=== PATIENT | male | born 1955 | race Caucasian/White ===

== ENCOUNTER 2017-02-10 23:52 | Emergency (ER) | payer OTHER ==
[2017-02-11 01:18] VITALS: BP 141/83; PULSE 82; TEMP 97.9; BMI 31.3
--- NOTE | 2017-02-11 02:37 | PDOC ---
History of Present Illness - General Chief Complaint: Cold Symptoms Stated Complaint: CONGESTION Time Seen by Provider: 02/11/17 00:58 - History of Present Illness Initial Comments: 02/11/17 02:29 CHIEF COMPLAINT: URI symptoms HISTORY OF PRESENT ILLNESS: 61 yo M with hx of IDDM, HTN, and HLD presents to ED with cough and sinus headache x 2 days. Patient states he has had a runny nose, sneezing, and cough x 2 days and today he has a headache PCP is Kevin Elizabeth No recent travel or sick contacts. PAST MEDICAL HISTORY: Denies past medical history FAMILY HISTORY: Denies SOCIAL HISTORY:Denies tobacco, alcohol, illicit drug use. SURGICAL HISTORY: Denies ALLERGIES: No known drug allergies REVIEW OF SYSTEMS General/Constitutional: Denies fever or chills. Denies weakness, weight change. HEENT: Denies change in vision. Denies ear pain or discharge. Denies sore throat. Cardiovascular: Denies chest pain or shortness of breath. Respiratory: Denies cough, wheezing, or hemoptysis. Gastrointestinal: Denies nausea, vomiting, diarrhea or constipation. Denies rectal bleeding. Genitourinary: Denies dysuria, frequency, or change in urination. Musculoskeletal: Denies joint or muscle swelling or pain. Denies neck or back pain. Skin and breasts: Denies rash or easy bruising. Neurologic: Denies headache, vertigo, loss of consciousness, or loss of sensation. PHYSICAL EXAM General Appearance: Well-appearing, appropriately dressed. No apparent distress. HEENT: Dry cough, swollen turbinates. EOMI, PERRLA, normal ENT inspection, normal voice, TMs normal, pharynx normal. No conjunctival pallor. No photophobia, scleral icterus. Neck: Supple. Trachea midline. No tenderness, rigidity, carotid bruit, stridor , lymphadenopathy, or thyromegaly. Respiratory/Chest: Lungs clear, no wheezing. CTAB. No shortness of breath, chest tenderness, respiratory distress, accessory muscle use. No crackles, rales , rhonchi, stridor, wheezing, dullness Cardiovascular: RRR. S1, S2. No JVD, murmur, bradycardia, tachycardia. Vascular Pulses: Dorsalis-Pedis (R): 2+, Dorsalis-Pedis (L): 2+ Gastrointestinal/Abdominal: Normal bowel sounds. Abdomen soft, non-distended. No tenderness or rebound tenderness. No organomegaly, pulsatile mass, guarding , hernia, hepatomegaly, splenomegaly. Lymphatic: No adenopathy, tenderness. Musculoskeletal/Extremities: Normal inspection. FROM of all extremities, normal capillary refill. Pelvis Stable. No CVA tenderness. No tenderness to extremities, pedal edema, swelling, erythema or deformity. Integumentary: Appropriate color, dry, warm. No cyanosis, erythema, jaundice or rash Neurologic: director software quality assurance II-XII intact. Fully oriented, alert. Appropriate mood/affect. Motor strength 5/5. No appreciable EOM palsy, facial droop or sensory deficit. Past History - Past Medical History Allergies/Adverse Reactions: Allergies Allergy/AdvReac Type Severity Reaction Status Date / Time No Known Drug Allergies Allergy Verified 02/11/17 01:18 Home Medications: Ambulatory Orders Azithromycin [Zithromax 250mg Tablets -] 250 mg PO ASDIR #6 tablet 02/11/17 Dextromethorphan HBr [Robitussin] 15 mg PO Q6H #28 capsule 02/11/17 Guaifenesin/Codeine Phosphate [Cheratussin AC Syrup] 15 ml PO HS PRN #118 liquid MDD 15ml 02/11/17 Insulin (Novolog) [Novolog Flexpen] 0 units SQ ACHS 02/11/17 Diabetes: Yes HTN: Yes - Psycho/Social/Smoking Cessation Hx Suicidal Ideation: No Smoking History: Never smoked Have you smoked in the past 12 months: Yes Number of Cigarettes Smoked Daily: 10 If you are a former smoker, when did you quit?: 3 days Information on smoking cessation initiated: No Hx Alcohol Use: No Drug/Substance Use Hx: No *Physical Exam - Vital Signs Last Vital Signs Temp Pulse Resp BP Pulse Ox 97.9 F 82 18 141/83 96 02/11/17 01:16 02/11/17 01:16 02/11/17 01:16 02/11/17 01:16 02/11/17 01:16 Medical Decision Making - Medical Decision Making 02/11/17 02:32 61 yo M with hx of IDDM, HTN, and HLD presents to ED with cough and sinus headache x 2 days. Clinical presentaiton consistent with viral bronchitis. *DC/Admit/Observation/Transfer Diagnosis at time of Disposition: Bronchitis - Discharge Dispostion Disposition: HOME Condition at time of disposition: Stable Admit: No - Prescriptions Prescriptions: Guaifenesin/Codeine Phosphate [Cheratussin AC Syrup] 15 ml PO HS PRN #118 liquid MDD 15ml PRN Reason: Cough Dextromethorphan HBr [Robitussin] 15 mg PO Q6H #28 capsule Azithromycin [Zithromax 250mg Tablets -] 250 mg PO ASDIR #6 tablet - Referrals Referrals: Kevin Elizabeth MD [Primary Care Provider] - - Patient Instructions Printed Discharge Instructions: DI for Acute Bronchitis Additional Instructions: Please take medications as prescribed. Follow up with Dr. Elizabeth in 5 days if symptoms do not improve. If you experience any fever, nausea, vomiting, diarrhea, shortness of breath, chest pain, or any new or worsening symptoms, please return to the ER.
== END 2017-02-11 02:50 | disposition home or self-care (01) ==
LOC: JERFT 23:52
DX: J40 Bronchitis, not specified as acute or chronic (principal); I10 Essential (primary) hypertension; E78.00 Pure hypercholesterolemia, unspecified; E11.9 Type 2 diabetes mellitus without complications; Z79.4 Long term (current) use of insulin
CPT/HCPCS: 99282-25

== ENCOUNTER 2018-09-04 12:48 | Emergency (ER) | payer OTHER ==
--- NOTE | 2018-09-04 13:03 | PDOC ---
History of Present Illness - General Chief Complaint: Weakness Stated Complaint: WEAK AND DIZZY Time Seen by Provider: 09/04/18 13:03 - History of Present Illness Initial Comments: 09/04/18 14:39 Chief complaint: Dizziness History of present illness: Patient awoke this morning with dizziness he described as a "spinning sensation", worse with head movement and change of position. He has had a recent sinus infection with URI symptoms. He has had short periods of vertigo in the past with similar symptoms. Review of systems: No fever/chills, headache, sore throat, cough, chest pain, shortness of breath, abdominal pain, nausea, vomiting, diarrhea, visual or focal neurologic symptoms, unsteadiness of gait. Past medical history: Insulin-dependent diabetes, elevated cholesterol, high blood pressure. On insulin and Procardia. Sugars and blood pressure have been well-controlled. Social history: One half pack-a-day smoker, no alcohol for 2 years, no drugs, active and without disability Family history: Reviewed and noncontributory Physical exam: Alert and oriented well-developed well-nourished no acute distress cheerful and cooperative. No vertigo at rest, but symptoms provoked by head movement and change of positions. No unsteadiness of gait. PERRLA 4 mm, fundi benign with sharp disc margins and good central venous pulsations ENT clear except for mild nasal congestion, no discharge Neck supple without bruit mass or nodes Chest clear with full breath sounds throughout bilaterally CV S1 and S2 normal without murmur rub or gallop pulses full and symmetric no JVD or edema no bruits Abdomen soft nontender without mass or organomegaly Neurological C2 to 12 intact. Fundi benign. No focal sensory or motor deficits. Strength full and symmetric. Cerebellum intact. Gait stable and unimpaired Impression: Vertigo, acute labyrinthitis, URI Plan: Symptomatic treatment with meclizine, observe, and follow-up. Past History - Past Medical History Allergies/Adverse Reactions: Allergies Allergy/AdvReac Type Severity Reaction Status Date / Time No Known Drug Allergies Allergy Mild Verified 09/04/18 12:50 Home Medications: Ambulatory Orders Insulin (Novolog) [Novolog Flexpen -] 0 units SQ ACHS 02/11/17 Meclizine HCl 25 mg PO TID PRN #15 tablet 09/04/18 Diabetes: Yes HTN: Yes - Suicide/Smoking/Psychosocial Hx Smoking History: Never smoked Have you smoked in the past 12 months: Yes Number of Cigarettes Smoked Daily: 10 If you are a former smoker, when did you quit?: 3 days Hx Alcohol Use: No Drug/Substance Use Hx: No Substance Use Type: None Medical Decision Making - Medical Decision Making 09/04/18 14:43 Patient much improved after 1 dose of meclizine. Symptoms have completely resolved. He has no further vertigo with head movement or changing positions, and is fully ambulatory with no gait disturbance. He is anxious to go home. He is instructed to continue medication for 2-3 days. If symptoms worsen return to the emergency room, otherwise follow-up with ENT specialist. *DC/Admit/Observation/Transfer Diagnosis at time of Disposition: Vertigo - Discharge Dispostion Disposition: HOME Condition at time of disposition: Improved Decision to Admit order: No - Prescriptions Prescriptions: Meclizine HCl 25 mg PO TID PRN #15 tablet PRN Reason: Vertigo - Referrals Referrals: Ludin Robbins MD [Staff Physician] - - Patient Instructions Printed Discharge Instructions: DI for Vertigo Additional Instructions: Rest and medication as directed Return to ER if symptoms persist or other symptoms develop. Otherwise follow-up with primary physician or ENT specialist as directed - Post Discharge Activity
[2018-09-04] MEDS ORDERED: MECLIZINE HCL 25 MG TABLET (FP) PO ONE (13:10)
[2018-09-04] MEDS ORDERED: MECLIZINE HCL 25 MG TABLET (FP) ONE (13:12)
[2018-09-04 13:15] VITALS: BP 146/78; PULSE 77; TEMP 98.4; BMI 31.3
--- NOTE | 2018-09-05 10:55 | EKG ---
Test Reason : Blood Pressure : / mmHG Vent. Rate : 068 BPM Atrial Rate : 068 BPM P-R Int : 148 ms QRS Dur : 082 ms QT Int : 392 ms P-R-T Axes : 071 029 050 degrees QTc Int : 416 ms NORMAL SINUS RHYTHM NORMAL ECG WHEN COMPARED WITH ECG OF 27-DEC-2013 23:15, NO SIGNIFICANT CHANGE WAS FOUND Confirmed by HOLLIS REVELES MD ([id number]) on 09/05/2018 10:54:51 AM Referred By: MEGHANA GRUBER Confirmed By:HOLLIS REVELES MD
== END 2018-09-04 13:34 | disposition home or self-care (01) ==
LOC: FER 12:48
DX: R42 Dizziness and giddiness (principal); I10 Essential (primary) hypertension; E11.9 Type 2 diabetes mellitus without complications
CPT/HCPCS: 93005; 99282-25

== ENCOUNTER 2019-12-27 13:58 | Inpatient (IN) | payer OTHER ==
[2019-12-27] MEDS ORDERED: ASPIRIN 325 MG TABLET PO ONE (14:05)
[2019-12-27] MEDS ORDERED: ASPIRIN 325 MG ENTERIC COATED TABLET (FP) ONE (14:27)
[2019-12-27 14:35] LABS: BASO % 0.2 % (0-2.0); HEMATOCRIT 48.1 % (35.4-49); HEMOGLOBIN 15.5 GM/dL (11.7-16.9); LYMPH % 9.2 % (8-40); MCH 32.2 pg (25.7-33.7); MCHC 32.4 g/dl (32.0-35.9); MEAN CELL VOLUME 99.5 fl (80-96); MEAN PLT VOLUME 10.6 fl (7.5-11.1); MONO % 5.5 % (3.8-10.2); NEUT % 85.1 % (42.8-82.8); PLATELET COUNT 165 K/MM3 (134-434); RBC 4.83 M/mm3 (4.00-5.60); WHITE BLOOD COUNT 11.9 K/mm3 (4.0-10.0)
[2019-12-27 14:41] LABS: INR 0.97 (0.83-1.09); PROTHROMBIN TIME (PATIENT) 11.5 SEC (9.7-13.0)
[2019-12-27 14:44] LABS: ACTIVATED PTT 29.6 SECONDS (25.2-36.5)
--- NOTE | 2019-12-27 14:58 | PDOC ---
History of Present Illness - General Chief Complaint: CVA/TIA Stated Complaint: FALL/POSSIBLE STROKE Time Seen by Provider: 12/27/19 14:15 - History of Present Illness Initial Comments: 12/27/19 14:49 64 M with hx of HTN, DM presented to the ED via EMS with stroke like symptoms. According to him, his last well know timeline was yesterday morning (past 36 hrs timeline) Subsequently, he couldn't walk and had a fall yesterday. In addition, he stated he had problem peeing. Today, he voided himself uncontrollably. His nephrew last saw him was today. He called EMS on him. Patient spoke English and we have a firer low pressure in the room. PMH: HTN, DM PSH: N/a Med: insulin Allergy: none SS: smoke 1 pack q 4 days. GENERAL/CONSTITUTIONAL: No fever or chills. Weakness. HEAD, EYES, EARS, NOSE AND THROAT: No change in vision. No ear pain or discharge. No sore throat. CARDIOVASCULAR: No chest pain or shortness of breath. RESPIRATORY: No cough, wheezing, or hemoptysis. GASTROINTESTINAL: No nausea, vomiting, diarrhea or constipation. GENITOURINARY: Change in urination. MUSCULOSKELETAL: No joint or muscle swelling or pain. No neck or back pain. SKIN: No rash NEUROLOGIC: Headache, loss of consciousness, or change in strength/sensation. ENDOCRINE: No increased thirst. No abnormal weight change. HEMATOLOGIC/LYMPHATIC: No anemia, easy bleeding, or history of blood clots. ALLERGIC/IMMUNOLOGIC: No hives or skin allergy. Past History - Medical History Allergies/Adverse Reactions: Allergies Allergy/AdvReac Type Severity Reaction Status Date / Time No Known Drug Allergies Allergy Mild Verified 12/27/19 14:23 Home Medications: Ambulatory Orders Insulin (Novolog) [Novolog Flexpen -] 0 units SQ ACHS 02/11/17 Meclizine HCl 25 mg PO TID PRN #15 tablet 09/04/18 Asthma: Yes COPD: No Diabetes: Yes HTN: Yes Hypercholesterolemia: Yes - Psycho-Social/Smoking History Smoking History: Never smoked Have you smoked in the past 12 months: Yes Number of Cigarettes Smoked Daily: 10 If you are a former smoker, when did you quit?: 3 days *Physical Exam - Vital Signs Last Vital Signs Temp Pulse Resp BP Pulse Ox 98.7 F 114 H 16 158/91 99 12/27/19 14:00 12/27/19 14:00 12/27/19 14:00 12/27/19 14:00 12/27/19 14:11 - Physical Exam 12/27/19 14:58 GENERAL: Awake, mildly oriented, in mild acute distress HEAD: No signs of trauma EYES: PERRLA, EOMI, sclera anicteric, conjunctiva clear ENT: Auricles normal inspection, hearing grossly normal, nares patent, oropharynx clear without exudates. Moist mucosa NECK: Normal ROM, supple, no lymphadenopathy, JVD, or masses LUNGS: Breath sounds equal, clear to auscultation bilaterally. No wheezes, and no crackles HEART: Regular rate and rhythm, normal S1 and S2, no murmurs, rubs or gallops ABDOMEN: Soft, nontender, normoactive bowel sounds. No guarding, no rebound. No masses EXTREMITIES: Limited range of motion upper and lower extremity, no edema. No clubbing or cyanosis. No cords, erythema, or tenderness. NEUROLOGICAL: Cranial nerves II through XII abnormal. Slurred speech, Unable to ambulate. Left facial droop, able to move forehead. SKIN: Warm, Dry, normal turgor, no rashes or lesions noted. NIH Stroke Scale - Last Known Well Date/Time & Onset Date Last Known Well: 12/26/19 (morning) - Initial Evaluation Level of consciousness: Alert Ask patient the month and their age: Answers both correctly Ask patient to open & close eyes; make fist and let go: Obeys both correctly Best gaze (horizontal eye movement): Partial gaze palsy Visual field testing: No visual field loss Facial paresis (Show teeth/raise eyebrows/close eyes tight): Minor paralysis (flattened nasolabial fold, asymmetry on smiling) Motor Function: Left Arm: Normal Motor Function: Right Arm: Normal (extends arm 90 (or 45) degrees for 10 seconds without drift Motor Function: Left Leg: Drift Motor Function: Right Leg: Drift Limb Ataxia: Present in one limb Sensory(Use pinprick test arms,legs,trunk,face/side to side): Normal Best language (Describe picture, name items, read sentences): No Aphasia Dysarthria (read several words): Normal articulation Extinction and Inattention: No abnormality - Total Score NIH Stroke Scale Score: 5 tPA Exclusion Checklist 0-3hr - Time Elapsed Date last known well: 12/26/19 (morning) Time last known well: 08:00 Elaspsed time: 1 Day(s) and 8 Hour(s) and 37 Minutes - Thrombolytic Therapy Candidate Is the patient eligible for Thrombolytic Therapy?: No - Exclusion Criteria 0-3hr SBP greater than 185 or DBP greater than 110mmHg despite tx: No Recent IC/spinal surgery,head trauma or stroke w/in last 3mo: No Hx of previous IC hemorrhage, IC neoplasm, AVM or aneurysm: No Active internal bleeding: No Blding diathesis(low plt ct, inc PTT,INR>1.7 or use of NOAC): No Symptoms suggest subarachnoid hemorrhage: No CT demonstrates multilobar infarct(>1/3 cerebral hemiphere): No Arterial puncture at noncompressible site in previous 7 days: No Blood glucose concentration less than 50mg/dL (2.7mmol/L): No - Relative Exclusion Criteria 0-3h Care team unable to determine eligibility: No IV/IA thrombolysis/thrombectomy @ another hosp prior arrival: No Life expectancy <1yr/severe co-morbid illness/CORPORATE EXECUTIVE CHEF on admit: No : No Patient/family refused: No Stroke severity too mild (non-disabling): No Recent acute [place] (w/in previous 3 months): No Seizure at onset with postictal residual neuro impairments: No Major surgery or serious trauma w/in previous 14 days: No Recent GI or hemorrhage (w/in previous 21 days): No - Ineligibility reason(s) Reasons No tPA given: Outside of window - delayed arrival, See reason(s) noted above tPA Exclusion checklist 3-4.5h - Time Elapsed Date last known well: 12/26/19 (morning) Time last known well: 08:00 Elaspsed time: 1 Day(s) and 8 Hour(s) and 37 Minutes - Thrombolytic Therapy Candidate Is patient eligible for thrombolytic therapy: No - Exclusion Criteria 3-4.5 hr SBP greater than 185 or DBP greater than 110mmHg despite tx: No Recent IC/spinal surgery,head trauma or stroke<3mos.: No Hx IC hemorrhage, IC neoplasm, AV malformation or aneurysm: No Active internal bleeding: No Blding diathesis(low plt ct, inc PTT,INR>1.7 or use of NOAC): No Symptoms suggest subarachnoid hemorrhage: No CT demonstrates multilobar infarct(>1/3 cerebral hemiphere): No Arterial puncture at noncompressible site in previous 7 days: No Blood glucose concentration less than 50mg/dL (2.7mmol/L): No - Relative Exclusion Criteria 3-4.5 hr Care team unable to determine eligibility: No IV/IA thrombolysis/thrombectomy @ another hosp prior arrival: No Life expectancy <1 yr or severe co-morbid illness: No : No Patient/family refused: No Stroke severity too mild (non-disabling): No Recent acute [place] (w/in previous 3 months): No Seizure at onset with postictal residual neuro impairments: No Major surgery or serious trauma w/in previous 14 days: No Recent GI or hemorrhage (w/in previous 21 days): No - Add'l Relative Exclusion 3-4.5 hr Age > 80: No Hx of both diabetes AND prior ischemic stroke: No Taking an oral anticoagulant regardless of INR: No Severe Stroke (NIHSS >25): No - Ineligibility reason(s) Reasons No tPA given: Outside of window - delayed arrival, See reason(s) noted above Heart Score/ECG Review - History History: Moderately suspicious - Electrocardiogram EKG: Normal - Age Age: 45-65 - Risk Factors Risk Factors Heart Score: Yes Hx Hypertension, Yes Hx Diabetes - Troponin Troponin: </= normal limit - ECG Intrepretation Rhythm: Regular Rhythm Comment:: 12/27/19 15:16 Rate : 97 bpm MS interval 148 ms QRS duration 76 ms QT/qQT 348/441 This EKQ is normal with regular rate and rhythm. Critical Care Time/MDM Note - Medical Decision Making Note: 12/27/19 15:38 64 M with hx of HTN, DM came to the ED via EMS with stroke like symptoms (facial drools, unable to move, facial slur, confusion). His last well know was yesterday morning ( outside of 36 hrs window). He was out of the window for either thromobolytic therapy and thrombectomy. We performed CBC, CMP, lipid panel, CT scan, EKG, UA. His CT scan was negative, no intracranial hemorrhage. His EKG is normal. UA is normal 12/27/19 15:51 Dr. Malkani paged for neuro. He agreed to admit the patient on the stroke floor. Consult was ordered. Hospitalist was contacted. Brain MRI w/o contrast was ordered per Dr. Bhatia. 12/27/19 16:33 Dr. Ronaldo Bernal will take Mr. Lundy on the floor to rule out CVA. 12/27/19 16:41 Patient was evaluated and felt improved. He is stable. Discharge - Discharge Information Problems reviewed: Yes Clinical Impression/Diagnosis: Cerebrovascular accident (CVA) Qualifiers: CVA mechanism: unspecified Qualified Code(s): I63.9 - Cerebral infarction, unspecified Condition: Stable - Admission Yes - Follow up/Referral Referrals: Kevin Elizabeth MD [Primary Care Provider] - - Patient Discharge Instructions - Post Discharge Activity
--- NOTE | 2019-12-27 15:01 | PDOC ---
Documentation entered by Laura Fajardo SCRIBE, acting as scribe for Tg Valentin MD. Tg Valentin MD: This documentation has been prepared by the scribe, Laura Fajardo SCRIBE, under my direction and personally reviewed by me in its entirety. I confirm that the documentation accurately reflects all work, treatment, procedures, and medical decision making performed by me. Attending Attestation - Resident Resident Name: Loc Tate - ED Attending Attestation I have performed the following: I have examined & evaluated the patient, The case was reviewed & discussed with the resident, I agree w/resident's findings & plan, Exceptions are as noted - HPI HPI: Patient is a 64 year old male with a significant past medical history of smoking (1Pack - days), insulin dependent diabetes, and hypertension who presents to the ED with a stroke x36 hours and a fall yesterday. Patient stated that he woke up yesterday morning with his "legs trembling" which inhibited him from walking or having full range of motion as well as lower extremity pain. Patient disclosed that last night he slipped outside of his house because of the rain and could not get himself back up for approximately 20 minutes. Patient said that his symptoms became worse over time and that this morning (around 9:30am) he could not "hold it in" and urinated on himself due to the fact that he could not get himself to walk to the bathroom. Patient stated he has had an ongoing headache. Patient denies chest pain or any other related symptoms. Last known well: 1 day ago. Allergies: NKDA - Physicial Exam PE: GENERAL: Awake, alert, and fully oriented, in no acute distress HEAD: No signs of trauma EYES: PERRLA, EOMI, sclera anicteric, conjunctiva clear ENT: Auricles normal inspection, hearing grossly normal, nares patent, oropharynx clear without exudates. Moist mucosa NECK: Normal ROM, supple, no lymphadenopathy, JVD, or masses LUNGS: Breath sounds equal, clear to auscultation bilaterally. No wheezes, and no crackles HEART: Regular rate and rhythm, normal S1 and S2, no murmurs, rubs or gallops ABDOMEN: Soft, nontender, normoactive bowel sounds. No guarding, no rebound. No masses EXTREMITIES: Normal range of motion, no edema. No clubbing or cyanosis. No cords, erythema, or tenderness NEUROLOGICAL: Cranial nerves II through XII grossly intact. Normal speech. Dec sensation to pinprick diffusely to BUE and BLE. Pt able to move all 4 extremities, however, poor compliance with neuro exam. SKIN: Warm, dry, normal turgor, no rashes or lesions noted. - Medical Decision Making 12/27/19 15:08 Pt presents with shaking legs, weakness diffusely throughout his body. This is not consistent with a specific neurologic distribution, do not suspect a CVA. Out of he window for tPA, as well. NIH Stroke Scale - Last Known Well Date/Time & Onset Date Last Known Well: 12/26/19 - Initial Evaluation Level of consciousness: Alert Ask patient the month and their age: Answers both correctly Ask patient to open & close eyes; make fist and let go: Obeys both correctly Best gaze (horizontal eye movement): Normal Visual field testing: No visual field loss Facial paresis (Show teeth/raise eyebrows/close eyes tight): Normal symmetrical movement Motor Function: Left Arm: Normal Motor Function: Right Arm: Normal (extends arm 90 (or 45) degrees for 10 seconds without drift Motor Function: Left Leg: Normal (extends leg 30 degrees for 5 seconds without drift) Motor Function: Right Leg: Normal (extends leg 30 degrees for 5 seconds without drift) Limb Ataxia: No ataxia Sensory(Use pinprick test arms,legs,trunk,face/side to side): Mild to moderate decrease in sensation Best language (Describe picture, name items, read sentences): No Aphasia Dysarthria (read several words): Mild to moderate slurring of words Extinction and Inattention: No abnormality (Patient with poor cooperation with stroke scale) - Total Score NIH Stroke Scale Score: 2 Discharge - Discharge Information Problems reviewed: Yes Clinical Impression/Diagnosis: Cerebrovascular accident (CVA) Qualifiers: CVA mechanism: unspecified Qualified Code(s): I63.9 - Cerebral infarction, unspecified Condition: Stable - Follow up/Referral - Patient Discharge Instructions - Post Discharge Activity
[2019-12-27 15:10] LABS: ALBUMIN 3.8 g/dl (3.4-5.0); ALK PHOS 62 U/L (45-117); ANION GAP 12 MMOL/L (8-16); BILIRUBIN,TOTAL 0.8 mg/dL (0.2-1); BLOOD UREA NITROGEN 13.2 mg/dL (7-18); CALCIUM 9.5 mg/dL (8.5-10.1); CHLORIDE 103 mmol/L (98-107); CHOLESTEROL 250 mg/dL (50-200); CO2 23 mmol/L (21-32); CREATININE 0.8 mg/dL (0.55-1.3); GLUCOSE,RANDOM 296 mg/dL (74-106); HDL CHOLESTEROL 74 mg/dL (40-60); LDL CHOLESTEROL (ONLY SJRH) 154 mg/dL (5-100); POTASSIUM 4.7 mmol/L (3.5-5.1); SGOT/AST 35 U/L (15-37); SGPT/ALT 23 U/L (13-61); SODIUM 138 mmol/L (136-145); TOT PROT 7.7 g/dl (6.4-8.2); TRIGLYCERIDES 127 mg/dL (0-150)
[2019-12-27 15:25] LABS: URINE APPEARANCE CLEAR; URINE BILIRUBIN NEGATIVE (NEGATIVE); URINE COLOR YELLOW; URINE GLUCOSE (UA) 3+ (NEGATIVE); URINE KETONE 1+ (NEGATIVE); URINE LEUK ESTERASE NEGATIVE (NEGATIVE); URINE NITRITE NEGATIVE (NEGATIVE); URINE PROTEIN NEGATIVE (NEGATIVE); URINE UROBILINOGEN 0.2 mg/dL (0.2-1.0)
[2019-12-27] MEDS ORDERED: ATORVASTATIN CA 80 MG TABLET (FP) ONE (17:10)
[2019-12-27] MEDS: ATORVASTATIN CA 80 MG TABLET (FP) PO SCH ×2 (17:13→22:00)
--- NOTE | 2019-12-27 18:06 | HP ---
<Travis Mckinnon - Last Filed: 12/27/19 20:19> CHIEF COMPLAINT: Extremity Weakness PCP: Dr. 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 Patient endorses that yesterday afternoon he was waiting outside his home for a taxi. While waiting for the taxi, patient began to feel his legs become very weak; patient subsequently went back into his home. Later that night, patient could not get up from his bed to urinate and subsequently urinated on himself. Patient states he has never experienced these symptoms before. Endorses diffuse weakness in both of arms and legs as well as decreased sensation throughout his entire body. Denies facial droop, altered mental status, blurry vision, chest pain, shortness of breath, or syncope. PMH IDDN, HTN Social Hx- Smokes Cigarillos~1 pack Q3 days SurgHx- Denies Allergies- Denies FH- Brother DM. ER course was notable for: (1) CT Head- Negative for acute pathology (2) NIH Stroke Scale 5 points (3) ASA+Atorvastatin administered Recent Travel: Denies HOME MEDICATIONS: Home Medications Medication Instructions Recorded Insulin (Novolog) [Novolog Flexpen 0 units SQ ACHS 02/11/17 -] Meclizine HCl 25 mg PO TID PRN #15 tablet 09/04/18 REVIEW OF SYSTEMS CONSTITUTIONAL: Absent: fever, chills, diaphoresis, generalized weakness, malaise, loss of appetite, weight change HEENT: Absent: rhinorrhea, nasal congestion, throat pain, throat swelling, difficulty swallowing, mouth swelling, ear pain, eye pain, visual changes CARDIOVASCULAR: Absent: chest pain, syncope, palpitations, irregular heart rate, lightheadedness, peripheral edema RESPIRATORY: Absent: cough, shortness of breath, dyspnea with exertion, orthopnea, wheezing, stridor, hemoptysis GASTROINTESTINAL: Absent: abdominal pain, abdominal distension, nausea, vomiting, diarrhea, constipation, melena, hematochezia GENITOURINARY: Absent: dysuria, frequency, urgency, hesitancy, hematuria, flank pain, genital pain MUSCULOSKELETAL: Absent: myalgia, arthralgia, joint swelling, back pain, neck pain SKIN: Absent: rash, itching, pallor HEMATOLOGIC/IMMUNOLOGIC: Absent: easy bleeding, easy bruising, lymphadenopathy, frequent infections ENDOCRINE: Absent: unexplained weight gain, unexplained weight loss, heat intolerance, cold intolerance NEUROLOGIC: PRESENT: focal weakness or paresthesias, unsteady gait PSYCHIATRIC: Absent: anxiety, depression, suicidal or homicidal ideation, hallucinations. PHYSICAL EXAMINATION Vital Signs - 24 hr 12/27/19 12/27/19 12/27/19 14:00 14:11 14:30 Temperature 98.7 F Pulse Rate 114 H Pulse Rate [ 102 H Left Radial] Respiratory 16 18 Rate Blood Pressure 158/91 Blood Pressure 135/71 [Left Arm] O2 Sat by Pulse 95 99 94 L Oximetry (%) 12/27/19 12/27/19 15:00 15:30 Temperature Pulse Rate Pulse Rate [ 96 H 94 H Left Radial] Respiratory 20 18 Rate Blood Pressure Blood Pressure 139/79 149/77 [Left Arm] O2 Sat by Pulse 96 99 Oximetry (%) GENERAL: Alert and Oriented x 3, NAD, pleasant HEAD: Normal with no signs of trauma. EYES: EOMI Sclera Clear. Right pupil nonreactive to light. EARS, NOSE, THROAT: MMM NECK: Supple, No carotid bruits appreciated LUNGS: CTAB HEART: RRR ABDOMEN: Soft, NDNT LOWER EXTREMITIES: Onychomycosis, ++ Babinski bilaterally NEUROLOGICAL: CN 2-12 are intact however sensation decreased throughout. Strength 3/5 RUE, 1/5 LUE. 3/5 RLE, 2/5 LLE. Reflexes 2+ LLE, absent RLE. Finger to nose WNL. Was unable to assess gait due to patient inability. PSYCHIATRIC: Cooperative. Good eye contact. Appropriate mood and affect. SKIN: Warm, dry, normal turgor, no rashes or lesions noted, normal capillary refill. Laboratory Results - last 24 hr 12/27/19 12/27/19 12/27/19 14:05 14:05 14:05 WBC 11.9 H RBC 4.83 Hgb 15.5 Hct 48.1 D MCV 99.5 H MCH 32.2 MCHC 32.4 RDW 12.0 Plt Count 165 MPV 10.6 D Absolute Neuts (auto) 10.1 H Neutrophils % 85.1 H D Lymphocytes % 9.2 D Monocytes % 5.5 Eosinophils % 0.0 D Basophils % 0.2 Nucleated RBC % 0 PT with INR 11.50 INR 0.97 PTT (Actin FS) 29.6 Sodium 138 Potassium 4.7 Chloride 103 Carbon Dioxide 23 Anion Gap 12 BUN 13.2 Creatinine 0.8 Est GFR (CKD-EPI)AfAm 110.96 Est GFR (CKD-EPI)NonAf 95.74 Random Glucose 296 H Calcium 9.5 Total Bilirubin 0.8 AST 35 ALT 23 Alkaline Phosphatase 62 Creatine Kinase 190 Creatine Kinase Index 0.6 CK-MB (CK-2) 1.3 Troponin I < 0.02 Total Protein 7.7 Albumin 3.8 Triglycerides 127 Cholesterol 250 H Total LDL Cholesterol 154 H HDL Cholesterol 74 H Urine Color Urine Appearance Urine pH Ur Specific Burdick Urine Protein Urine Glucose (UA) Urine Ketones Urine Blood Urine Nitrite Urine Bilirubin Urine Urobilinogen Ur Leukocyte Esterase Blood Type Antibody Screen 12/27/19 12/27/19 14:05 14:56 WBC RBC Hgb Hct MCV MCH MCHC RDW Plt Count MPV Absolute Neuts (auto) Neutrophils % Lymphocytes % Monocytes % Eosinophils % Basophils % Nucleated RBC % PT with INR INR PTT (Actin FS) Sodium Potassium Chloride Carbon Dioxide Anion Gap BUN Creatinine Est GFR (CKD-EPI)AfAm Est GFR (CKD-EPI)NonAf Random Glucose Calcium Total Bilirubin AST ALT Alkaline Phosphatase Creatine Kinase Creatine Kinase Index CK-MB (CK-2) Troponin I Total Protein Albumin Triglycerides Cholesterol Total LDL Cholesterol HDL Cholesterol Urine Color Yellow Urine Appearance Clear Urine pH 5.0 Ur Specific Burdick 1.043 H Urine Protein Negative Urine Glucose (UA) 3+ H Urine Ketones 1+ H Urine Blood Negative Urine Nitrite Negative Urine Bilirubin Negative Urine Urobilinogen 0.2 Ur Leukocyte Esterase Negative Blood Type Cancelled Antibody Screen Cancelled ASSESSMENT/PLAN: Patient is a 64 y/o M with a significant past medical history of IDDM and HTN who presented to [facility] due to sudden onset extremity weakness. #Extremity weakness likely 2/2 CVA -Head CT negative -Out of window for tPA -NIH stroke scale 5 -High intensity Statin, ASA daily -MRI w/o Contrast -Neuro Consult -Carotid U/S -Tele monitoring -VS Q4H -Speech/Swallow -Physical therapy #IDDM -Patient endorses being on Insulin. Cannot recall units. -Will need to reconcile medication. [facility]. Pharmacy closed #HTN -Tony need to reconcile medication. #FEN -No Fluids -Monitor Electrolytes -NPO until cleared by speech and swallow #DVT ppx; HepSQTID #Dispo -Tele Visit type - Emergency Visit Emergency Visit: Yes ED Registration Date: 12/27/19 Care time: The patient presented to the Emergency Department on the above date and was hospitalized for further evaluation of their emergent condition. - New Patient This patient is new to me today: Yes Date on this admission: 12/27/19 - Critical Care Critical Care patient: No ATTENDING PHYSICIAN STATEMENT I saw and evaluated the patient. I reviewed the resident's note and discussed the case with the resident. I agree with the resident's findings and plan as documented. SUBJECTIVE: OBJECTIVE: ASSESSMENT AND PLAN: <Ronaldo Gonzales - Last Filed: 12/27/19 20:49> CHIEF COMPLAINT: PCP: HISTORY OF PRESENT ILLNESS: ER course was notable for: (1) (2) (3) Recent Travel: PAST MEDICAL HISTORY: PAST SURGICAL HISTORY: Social History: Smoking: Alcohol: Drugs: Allergies No Known Drug Allergies Allergy (Mild, Verified 12/27/19 14:23) HOME MEDICATIONS: Home Medications Medication Instructions Recorded Insulin (Novolog) [Novolog Flexpen 0 units SQ ACHS 02/11/17 -] Meclizine HCl 25 mg PO TID PRN #15 tablet 09/04/18 REVIEW OF SYSTEMS CONSTITUTIONAL: Absent: fever, chills, diaphoresis, generalized weakness, malaise, loss of appetite, weight change HEENT: Absent: rhinorrhea, nasal congestion, throat pain, throat swelling, difficulty swallowing, mouth swelling, ear pain, eye pain, visual changes CARDIOVASCULAR: Absent: chest pain, syncope, palpitations, irregular heart rate, lightheadedness, peripheral edema RESPIRATORY: Absent: cough, shortness of breath, dyspnea with exertion, orthopnea, wheezing, stridor, hemoptysis GASTROINTESTINAL: Absent: abdominal pain, abdominal distension, nausea, vomiting, diarrhea, constipation, melena, hematochezia GENITOURINARY: Absent: dysuria, frequency, urgency, hesitancy, hematuria, flank pain, genital pain MUSCULOSKELETAL: Absent: myalgia, arthralgia, joint swelling, back pain, neck pain SKIN: Absent: rash, itching, pallor HEMATOLOGIC/IMMUNOLOGIC: Absent: easy bleeding, easy bruising, lymphadenopathy, frequent infections ENDOCRINE: Absent: unexplained weight gain, unexplained weight loss, heat intolerance, cold intolerance NEUROLOGIC: Absent: headache, focal weakness or paresthesias, dizziness, unsteady gait, seizure, mental status changes, bladder or bowel incontinence PSYCHIATRIC: Absent: anxiety, depression, suicidal or homicidal ideation, hallucinations. PHYSICAL EXAMINATION Vital Signs - 24 hr 12/27/19 12/27/19 12/27/19 14:00 14:11 14:30 Temperature 98.7 F Pulse Rate 114 H Pulse Rate [ 102 H Left Radial] Respiratory 16 18 Rate Blood Pressure 158/91 Blood Pressure 135/71 [Left Arm] O2 Sat by Pulse 95 99 94 L Oximetry (%) 12/27/19 12/27/19 12/27/19 15:00 15:30 18:35 Temperature 98.9 F Pulse Rate Pulse Rate [ 96 H 94 H 74 Left Radial] Respiratory 20 18 18 Rate Blood Pressure Blood Pressure 139/79 149/77 146/89 [Left Arm] O2 Sat by Pulse 96 99 99 Oximetry (%) GENERAL: Awake, alert, and fully oriented, in no acute distress. HEAD: Normal with no signs of trauma. EYES: Pupils equal, round and reactive to light, extraocular movements intact, sclera anicteric, conjunctiva clear. No lid lag. EARS, NOSE, THROAT: Ears normal, nares patent, oropharynx clear without exudates. Moist mucous membranes. NECK: Normal range of motion, supple without lymphadenopathy, JVD, or masses. LUNGS: Breath sounds equal, clear to auscultation bilaterally. No wheezes, and no crackles. No accessory muscle use. HEART: Regular rate and rhythm, normal S1 and S2 without murmur, rub or gallop. ABDOMEN: Soft, nontender, not distended, normoactive bowel sounds, no guarding, no rebound, no masses. No hepatomegaly or splenomegaly. MUSCULOSKELETAL: Normal range of motion at all joints. No bony deformities or tenderness. No CVA tenderness. UPPER EXTREMITIES: 2+ pulses, warm, well-perfused. No cyanosis. No clubbing. No peripheral edema. LOWER EXTREMITIES: 2+ pulses, warm, well-perfused. No calf tenderness. No peripheral edema. NEUROLOGICAL: Cranial nerves II-XII intact. Normal speech. Normal gait. PSYCHIATRIC: Cooperative. Good eye contact. Appropriate mood and affect. SKIN: Warm, dry, normal turgor, no rashes or lesions noted, normal capillary refill. Laboratory Results - last 24 hr 12/27/19 12/27/19 12/27/19 14:05 14:05 14:05 WBC 11.9 H RBC 4.83 Hgb 15.5 Hct 48.1 D MCV 99.5 H MCH 32.2 MCHC 32.4 RDW 12.0 Plt Count 165 MPV 10.6 D Absolute Neuts (auto) 10.1 H Neutrophils % 85.1 H D Lymphocytes % 9.2 D Monocytes % 5.5 Eosinophils % 0.0 D Basophils % 0.2 Nucleated RBC % 0 PT with INR 11.50 INR 0.97 PTT (Actin FS) 29.6 Sodium 138 Potassium 4.7 Chloride 103 Carbon Dioxide 23 Anion Gap 12 BUN 13.2 Creatinine 0.8 Est GFR (CKD-EPI)AfAm 110.96 Est GFR (CKD-EPI)NonAf 95.74 Random Glucose 296 H Calcium 9.5 Total Bilirubin 0.8 AST 35 ALT 23 Alkaline Phosphatase 62 Creatine Kinase 190 Creatine Kinase Index 0.6 CK-MB (CK-2) 1.3 Troponin I < 0.02 Total Protein 7.7 Albumin 3.8 Triglycerides 127 Cholesterol 250 H Total LDL Cholesterol 154 H HDL Cholesterol 74 H Urine Color Urine Appearance Urine pH Ur Specific Burdick Urine Protein Urine Glucose (UA) Urine Ketones Urine Blood Urine Nitrite Urine Bilirubin Urine Urobilinogen Ur Leukocyte Esterase Blood Type Antibody Screen 12/27/19 12/27/19 14:05 14:56 WBC RBC Hgb Hct MCV MCH MCHC RDW Plt Count MPV Absolute Neuts (auto) Neutrophils % Lymphocytes % Monocytes % Eosinophils % Basophils % Nucleated RBC % PT with INR INR PTT (Actin FS) Sodium Potassium Chloride Carbon Dioxide Anion Gap BUN Creatinine Est GFR (CKD-EPI)AfAm Est GFR (CKD-EPI)NonAf Random Glucose Calcium Total Bilirubin AST ALT Alkaline Phosphatase Creatine Kinase Creatine Kinase Index CK-MB (CK-2) Troponin I Total Protein Albumin Triglycerides Cholesterol Total LDL Cholesterol HDL Cholesterol Urine Color Yellow Urine Appearance Clear Urine pH 5.0 Ur Specific Burdick 1.043 H Urine Protein Negative Urine Glucose (UA) 3+ H Urine Ketones 1+ H Urine Blood Negative Urine Nitrite Negative Urine Bilirubin Negative Urine Urobilinogen 0.2 Ur Leukocyte Esterase Negative Blood Type Cancelled Antibody Screen Cancelled ASSESSMENT/PLAN: ATTENDING PHYSICIAN STATEMENT I saw and evaluated the patient. I reviewed the resident's note and discussed the case with the resident. I agree with the resident's findings and plan as documented. Attending attestation: Patient seen and examined at bedside. Patient keeps asking for food to eat. Refusing to cooperate with nurses, staff, or to have testing done because he cant eat despite explaining to him the concern for choking and the fact that he kept coughing wile trying to swallow a medication with a small sip of water. On exam he is AAOx3. RRR on cardiac exam. Lungs CTAB. ABD soft obese non-tender non distended. no edema of lower extremities. on neurological exam his pupils are equally round and reactive to light. EOMI. he has flattening of the right nasolabial fold when compared to left but left side of face is weak. tongue is symmetrical. cant wrinkle forehead. He reports loss of sensation left V2 distribution. weakness of left shoulder shrug. Left upper extremity weaker than right whe compared. possibly upgoing toes bilaterally on babinsky. LLE is weak when compared to right. LLE plantar flexion is weak. Knee jerk is brisk in the LLE and knee jerk is WNL in RLE. 64M with DM and likely undiagnosed HTN presents with CVA. CT head WNL. 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
[2019-12-27] MEDS: INSULIN SLIDING SCALE (NOVOLOG) 1 VIAL SQ SCH (22:01)
[2019-12-27] MEDS: HEPARIN NA (PORCINE) 5,000 UNITS/ML 1ML VIAL SQ SCH (22:10)
[2019-12-28 02:50] VITALS: BMI 29.0
[2019-12-28] MEDS ORDERED: PNEUMOC 13-VAL CONJ-DIP CRM/PF 0.5 ML DISP.SYRIN IM ONE (02:50)
[2019-12-28] MEDS: HEPARIN NA (PORCINE) 5,000 UNITS/ML 1ML VIAL SQ SCH ×3 (06:36→22:09)
[2019-12-28] MEDS: INSULIN SLIDING SCALE (NOVOLOG) 1 VIAL SQ SCH ×4 (06:44→22:10)
[2019-12-28 08:09] LABS: INR 1.01 (0.83-1.09); PROTHROMBIN TIME (PATIENT) 11.9 SEC (9.7-13.0)
[2019-12-28 08:12] LABS: ACTIVATED PTT 32.1 SECONDS (25.2-36.5)
[2019-12-28 08:19] LABS: HEMATOCRIT 45.9 % (35.4-49); HEMOGLOBIN 15.1 GM/dL (11.7-16.9); MCH 32.8 pg (25.7-33.7); MEAN CELL VOLUME 99.4 fl (80-96); MEAN PLT VOLUME 10.9 fl (7.5-11.1); PLATELET COUNT 160 K/MM3 (134-434); RBC 4.61 M/mm3 (4.00-5.60); RDW 11.8 % (11.9-15.9); WHITE BLOOD COUNT 8.8 K/mm3 (4.0-10.0)
[2019-12-28 08:32] LABS: ALBUMIN 3.5 g/dl (3.4-5.0); ALK PHOS 60 U/L (45-117); ANION GAP 12 MMOL/L (8-16); BILIRUBIN,TOTAL 1.1 mg/dL (0.2-1); BLOOD UREA NITROGEN 11.3 mg/dL (7-18); CALCIUM 9.2 mg/dL (8.5-10.1); CHLORIDE 101 mmol/L (98-107); CHOLESTEROL 232 mg/dL (50-200); CO2 25 mmol/L (21-32); CREATININE 0.6 mg/dL (0.55-1.3); GLUCOSE,RANDOM 243 mg/dL (74-106); HDL CHOLESTEROL 65 mg/dL (40-60); LDL CHOLESTEROL (ONLY SJRH) 140 mg/dL (5-100); MAGNESIUM 2.2 mg/dL (1.8-2.4); PHOSPHOROUS 3.2 mg/dL (2.5-4.9); POTASSIUM 3.9 mmol/L (3.5-5.1); SGOT/AST 16 U/L (15-37); SGPT/ALT 20 U/L (13-61); SODIUM 138 mmol/L (136-145); TRIGLYCERIDES 177 mg/dL (0-150)
[2019-12-28] MEDS: ASPIRIN 81 MG CHEWABLE TABLETS PO SCH (09:00)
--- NOTE | 2019-12-28 11:45 | CONSULT ---
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 Patient endorses that yesterday afternoon (day prior to admission) he was waiting outside his home for a taxi. While waiting for the taxi, patient began to feel his legs become very weak; patient subsequently went back into his home. Later that night, patient could not get up from his bed to urinate and subsequently urinated on himself. Patient states he has never experienced these symptoms before. Endorses diffuse weakness in both of arms and legs as well as decreased sensation throughout his entire body. Denies facial droop, altered mental status, blurry vision, chest pain, shortness of breath, or syncope. Head CT comp leted, with no acute pathology. Carotid color flow doppler, echo with doppler ordered, yet to be completed. Total LDL 154, HDL 74, Cholesterol 250mg, triglycerides 127. Pt started on Aspirin 81mg, statin 80mg. Brain MRI completed, results pending. To my reviewed, appears to have deep right sided DWI+ with ADC dropout consistent with acute CVA. Not taking aspirin at home and I discussed with him the importance of taking antiplatelet medication for CVA prevention. Excessively high LDL also concern and therefore Liam therapy is needed. Primary Medical History: IDDN, HTN Social History- Smokes Cigarillos~1 pack Q3 days Surgical History Denies Family History - brother wit DM Recent Travel: Denies Allergies No Known Drug Allergies Allergy (Mild, Verified 12/27/19 14:23) Ambulatory Orders Insulin (Novolog) [Novolog Flexpen -] 0 units SQ ACHS 02/11/17 Meclizine HCl 25 mg PO TID PRN #15 tablet 09/04/18 Active Medications Aspirin (Asa -) 81 mg PO DAILY [facility] Last Admin: 12/28/19 09:00 Dose: Not Given Documented by: Atorvastatin Calcium (Lipitor -) 80 mg PO HS [facility] Last Admin: 12/27/19 22:00 Dose: Not Given Documented by: Heparin Sodium (Porcine) (Heparin -) 5,000 unit SQ TID [facility] Last Admin: 12/28/19 06:36 Dose: 5,000 unit Documented by: Sodium Chloride (Normal Saline -) 1,000 mls @ 75 mls/hr IV ASDIR CHEIKH Insulin Aspart (Novolog Vial Sliding Scale -) 1 vial SQ ACHS CHEIKH; Protocol Last Admin: 12/28/19 06:44 Dose: 6 units Documented by: Pneumococcal 13-Valent Conj Vacc (Prevnar 13 Syringe -) 0.5 ml IM .ONCE ONE Stop: 12/28/19 02:51 REVIEW OF SYSTEMS CONSTITUTIONAL: Absent: fever, chills, diaphoresis, generalized weakness, malaise, loss of appetite, weight change HEENT: Absent: rhinorrhea, nasal congestion, throat pain, throat swelling, difficulty swallowing, mouth swelling, ear pain, eye pain, visual changes CARDIOVASCULAR: Absent: chest pain, syncope, palpitations, irregular heart rate, lightheadedness, peripheral edema RESPIRATORY: Absent: cough, shortness of breath, dyspnea with exertion, orthopnea, wheezing, stridor, hemoptysis GASTROINTESTINAL: Absent: abdominal pain, abdominal distension, nausea, vomiting, diarrhea, constipation, melena, hematochezia GENITOURINARY: Absent: dysuria, frequency, urgency, hesitancy, hematuria, flank pain, genital pain MUSCULOSKELETAL: Absent: myalgia, arthralgia, joint swelling, back pain, neck pain SKIN: Absent: rash, itching, pallor HEMATOLOGIC/IMMUNOLOGIC: Absent: easy bleeding, easy bruising, lymphadenopathy, frequent infections ENDOCRINE: Absent: unexplained weight gain, unexplained weight loss, heat intolerance, cold intolerance NEUROLOGIC: Absent: headache, focal weakness or paresthesias, dizziness, unsteady gait, seizure, mental status changes, bladder or bowel incontinence PSYCHIATRIC: Absent: anxiety, depression, suicidal or homicidal ideation, hallucinations. PHYSICAL EXAMINATION Vital Signs Period Temp Pulse Resp BP Sys/Llamas Pulse Ox Last 24 Hr 98.2 F-98.9 F 74-114 16-20 132-158/71-91 94-99 GENERAL: Awake, alert, and fully oriented, in no acute distress. HEAD: Normal with no signs of trauma. EYES: Pupils equal, round and reactive to light, extraocular movements intact, sclera anicteric, conjunctiva clear. No lid lag. EARS, NOSE, THROAT: Ears normal, nares patent, oropharynx clear without exudates. Moist mucous membranes. NECK: Normal range of motion, supple without lymphadenopathy, JVD, or masses. LUNGS: Breath sounds equal, clear to auscultation bilaterally. No wheezes, and no crackles. No accessory muscle use. HEART: Regular rate and rhythm, normal S1 and S2 without murmur, rub or gallop. ABDOMEN: Soft, nontender, not distended, normoactive bowel sounds, no guarding, no rebound, no masses. No hepatomegaly or splenomegaly. MUSCULOSKELETAL: Normal range of motion at all joints. No bony deformities or tenderness. No CVA tenderness. UPPER EXTREMITIES: 2+ pulses, warm, well-perfused. No cyanosis. No clubbing. No peripheral edema. LOWER EXTREMITIES: 2+ pulses, warm, well-perfused. No calf tenderness. No peripheral edema. NEUROLOGICAL: Cranial nerves II-XII intact. Finger to nose difficulty, moves all extremities equally, sensory intact, not pariticpating in confrontation testing PSYCHIATRIC: Cooperative. Good eye contact. Appropriate mood and affect. SKIN: Warm, dry, normal turgor, no rashes or lesions noted, normal capillary refill. CBCD WBC 8.8 K/mm3 (4.0-10.0) 12/28/19 06:20 RBC 4.61 M/mm3 (4.00-5.60) 12/28/19 06:20 Hgb 15.1 GM/dL (11.7-16.9) 12/28/19 06:20 Hct 45.9 % (35.4-49) 12/28/19 06:20 MCV 99.4 fl (80-96) H 12/28/19 06:20 MCHC 33.0 g/dl (32.0-35.9) 12/28/19 06:20 RDW 11.8 % (11.9-15.9) L 12/28/19 06:20 Plt Count 160 K/MM3 (134-434) 12/28/19 06:20 MPV 10.9 fl (7.5-11.1) 12/28/19 06:20 CMP Sodium 138 mmol/L (136-145) 12/28/19 06:20 Potassium 3.9 mmol/L (3.5-5.1) 12/28/19 06:20 Chloride 101 mmol/L (98-107) 12/28/19 06:20 Carbon Dioxide 25 mmol/L (21-32) 12/28/19 06:20 Anion Gap 12 MMOL/L (8-16) 12/28/19 06:20 BUN 11.3 mg/dL (7-18) 12/28/19 06:20 Creatinine 0.6 mg/dL (0.55-1.3) 12/28/19 06:20 Random Glucose 243 mg/dL (74-106) H 12/28/19 06:20 Calcium 9.2 mg/dL (8.5-10.1) 12/28/19 06:20 Total Bilirubin 1.1 mg/dL (0.2-1) H 12/28/19 06:20 AST 16 U/L (15-37) 12/28/19 06:20 ALT 20 U/L (13-61) 12/28/19 06:20 Alkaline Phosphatase 60 U/L (45-117) 12/28/19 06:20 Total Protein 7.0 g/dl (6.4-8.2) 12/28/19 06:20 Albumin 3.5 g/dl (3.4-5.0) 12/28/19 06:20 CARDIAC ENZYMES Creatine Kinase 190 U/L (26-308) 12/27/19 14:05 Troponin I < 0.02 ng/ml (0.00-0.05) 12/27/19 14:05 ASSESSMENT/PLAN: Patient is a 64 y/o M with a significant past medical history of IDDM and HTN who presented to [facility] due to sudden onset extremity weakness. Patient endorses that yesterday afternoon (day prior to admission) he was waiting outside his home for a taxi. While waiting for the taxi, patient began to feel his legs become very weak; patient subsequently went back into his home. Later that night, patient could not get up from his bed to urinate and subsequently urinated on himself. Patient states he has never experienced these symptoms before. Endorses diffuse weakness in both of arms and legs as well as decreased sensation throughout his entire body. Denies facial droop, altered mental status, blurry vision, chest pain, shortness of breath, or syncope. Head CT completed, with no acute pathology. Brain MRI completed, results pending. Carotid color flow doppler, echo with doppler ordered, yet to be completed. Total LDL 154, HDL 74, Cholesterol 250mg, triglycerides 127. Pt started on Aspirin 81mg, statin 80mg. Brain MRI completed, results pending. To my reviewed, appears to have deep right sided DWI+ with ADC dropout consistent with acute CVA. Not taking aspirin at home and I discussed with him the importance of taking antiplatelet medication for CVA prevention, statin therapy is needed for elevated LDL, goal <70. Carotid doppler, echo recommended. Monitor blood pressure, maintain less than 160/90 for now. Asa compliance discussed and emphasized. Monitor glucose, maintain euglycemic range. PT as tolerated, speech/swallow eval.
--- NOTE | 2019-12-28 12:36 | PN ---
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, Physician - Current Medication List Current Medications: Active Medications Aspirin (Asa -) 81 mg PO DAILY [facility] Last Admin: 12/28/19 09:00 Dose: Not Given Documented by: Atorvastatin Calcium (Lipitor -) 80 mg PO HS [facility] Last Admin: 12/27/19 22:00 Dose: Not Given Documented by: Heparin Sodium (Porcine) (Heparin -) 5,000 unit SQ TID [facility] Last Admin: 12/28/19 06:36 Dose: 5,000 unit Documented by: Sodium Chloride (Normal Saline -) 1,000 mls @ 75 mls/hr IV ASDIR CHEIKH Insulin Aspart (Novolog Vial Sliding Scale -) 1 vial SQ ACHS [facility]; Protocol Last Admin: 12/28/19 06:44 Dose: 6 units Documented by: Pneumococcal 13-Valent Conj Vacc (Prevnar 13 Syringe -) 0.5 ml IM .ONCE ONE Stop: 12/28/19 02:51 - Objective Vital Signs: Vital Signs Temperature 98.6 F 12/28/19 10:25 Pulse Rate 83 12/28/19 10:25 Respiratory Rate 20 12/28/19 10:25 Blood Pressure 140/77 12/28/19 10:25 O2 Sat by Pulse Oximetry (%) 97 12/28/19 10:25 Cardiovascular: Yes: Regular Rate and Rhythm Respiratory: Yes: Regular, CTA Bilaterally Gastrointestinal: Yes: Normal Bowel Sounds, Soft Neurological: Yes: Alert, Oriented, Weakness. No: Confusion, Facial Droop Labs: CBC, BMP 12/28/19 06:20 12/28/19 06:20 INR, PTT INR 1.01 (0.83-1.09) 12/28/19 06:20 Problem List - Problems (1) Cerebrovascular accident (CVA) Assessment/Plan: ct head negative mri results pending asa statin neuro consult Code(s): I63.9 - CEREBRAL INFARCTION, UNSPECIFIED Qualifiers: CVA mechanism: unspecified Qualified Code(s): I63.9 - Cerebral infarction, unspecified (2) Diabetes Assessment/Plan: poorly controlled bgm with ss while npo endo consult Code(s): E11.9 - TYPE 2 DIABETES MELLITUS WITHOUT COMPLICATIONS (3) HLD (hyperlipidemia) Assessment/Plan: continue with statin Code(s): E78.5 - HYPERLIPIDEMIA, UNSPECIFIED
[2019-12-28] MEDS: SODIUM CHLORIDE 1,000 ML IV SCH (12:48)
[2019-12-28] MEDS ORDERED: ACETAMINOPHEN 325 MG TABLET (FP) PO PRN (13:10)
--- NOTE | 2019-12-28 14:05 | EKG ---
Test Reason : Blood Pressure : / mmHG Vent. Rate : 097 BPM Atrial Rate : 097 BPM P-R Int : 148 ms QRS Dur : 076 ms QT Int : 348 ms P-R-T Axes : 052 016 038 degrees QTc Int : 441 ms NORMAL SINUS RHYTHM POSSIBLE LEFT ATRIAL ENLARGEMENT BORDERLINE ECG WHEN COMPARED WITH ECG OF 04-SEP-2018 13:03, NO SIGNIFICANT CHANGE WAS FOUND Confirmed by COLT BAL MD ([id number]) on 12/28/2019 2:05:03 PM Referred By: Confirmed By:COLT BAL MD
--- NOTE | 2019-12-28 15:41 | CON.CARD ---
Consult Consult Specialty:: Cardiology Referred by:: Dr. Zarate Reason for Consultation:: CVA - History of Present Illness Chief Complaint: weakness History of Present Illness: 64 year old man with pmh HTN, DMII, vertigo, admitted with acute onset weakness. states on day prior to admission while standing he felt his legs get suddenly weak. he went back inside and laid down but was unable to get up due to leg weakness. also reports weakness in arms R>L. pt seen and examined today in nad. denies any palpitations, chest pain, or sob. no pnd, orthopnea, or le edema. no lightheadedness, dizziness, syncope, or near syncope. 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 Cardio/Vascular: Yes: HTN Endocrine: Yes: Diabetes Mellitus - Alcohol/Substance Use Hx Alcohol Use: No - Smoking History Smoking history: Current every day smoker Have you smoked in the past 12 months: Yes Aproximately how many cigarettes per day: 10 If you are a former smoker, when did you quit?: 3 days - Social History ADL: Independent History of Recent Travel: No Home Medications - Allergies Allergies/Adverse Reactions: Allergies Allergy/AdvReac Type Severity Reaction Status Date / Time No Known Drug Allergies Allergy Mild Verified 12/27/19 14:23 - Home Medications Home Medications: Ambulatory Orders Insulin (Novolog) [Novolog Flexpen -] 0 units SQ ACHS 02/11/17 Meclizine HCl 25 mg PO TID PRN #15 tablet 09/04/18 Family Medical History Family History: Denies Review of Systems - Review of Systems Constitutional: reports: Weakness. denies: No Symptoms, Chills, Diaphoresis, Fever, Lethargy, Loss of Appetite, Malaise, Night Sweats, Unintentional Wgt. Loss, Other Eyes: denies: No Symptoms, Blind Spots, Blurred Vision, Double Vision, Eye Pain, Floaters, Photophobia, Recent Change in Vision, Other HENT: denies: No Symptoms, Difficult Swallowing, Ear Discharge, Ear Pain, Epistaxis, Gingival Bleeding, Hearing Loss, Mouth Swelling, Nasal Congestion, Ocular Prosthesis, Throat Pain, Toothache, Ringing in Ears, Other Neck: denies: No Symptoms, Decreased ROM, Lumps, Pain on Movement, Stiffness, Swollen Glands, Tenderness, Other Cardiovascular: denies: No Symptoms, Chest Pain, Edema, Palpitations, Shortness of Breath, Other Respiratory: denies: No Symptoms, Cough, Exercise Intolerance, Hemoptysis, Orthopnea, PND, Snoring, SOB, SOB on Exertion, Wheezing, Other Gastrointestinal: reports: No Symptoms Genitourinary: reports: No Symptoms Breasts: reports: No Symptoms Reported Musculoskeletal: reports: No Symptoms Integumentary: reports: No Symptoms Neurological: reports: No Symptoms Endocrine: reports: No Symptoms Hematology/Lymphatic: reports: No Symptoms Psychiatric: reports: No Symptoms - Risk Factors Known Risk Factors: Yes: Diabetes Mellitus, Hypertension Vital Signs: Vital Signs Temperature 98.4 F 12/28/19 14:16 Pulse Rate 77 12/28/19 14:16 Respiratory Rate 18 12/28/19 14:16 Blood Pressure 130/78 12/28/19 14:16 O2 Sat by Pulse Oximetry (%) 97 12/28/19 10:25 Constitutional: Yes: No Distress, Calm Eyes: Yes: Conjunctiva Clear, EOM Intact HENT: Yes: Atraumatic, Normocephalic Neck: Yes: Supple, Trachea Midline Respiratory: Yes: Regular, CTA Bilaterally Gastrointestinal: Yes: Normal Bowel Sounds, Soft. No: Distention, Tenderness Cardiovascular: Yes: Regular Rate and Rhythm. No: Bradycardia, Tachycardia, Pulse Irregular, Gallop, Rub, Varicosities JVD: No Carotid Bruit: No PMI: Non-Displaced Heart Sounds: Yes: S1, S2. No: Split S2, S3, S4, Clicks, Gallop, Rub, Bruit Murmur: No: Systolic Murmur, Diastolic Murmur Musculoskeletal: Yes: WNL Extremities: Yes: WNL Edema: No Peripheral Pulses WNL: Yes Peripheral Pulses: 2+ Left Doralis Pedis, 2+ Right Dorsalis Pedis Neurological: Yes: Alert, Oriented Psychiatric: Yes: Alert, Oriented - Other Data Labs, Other Data: CBC, BMP 12/28/19 06:20 12/28/19 06:20 INR, PTT INR 1.01 (0.83-1.09) 12/28/19 06:20 Troponin, BNP 12/28/19 06:20 Troponin I < 0.02 Troponin, BNP 12/28/19 06:20 Troponin I < 0.02 ekg-nsr, no sig st abnl Imaging - Results Chest X-ray: Report Reviewed, Image Reviewed EKG: Report Reviewed, Image Reviewed Other: Report Reviewed, Image Reviewed (tele-nsr, no sig arrythmias) Assessment/Plan 64 year old man with pmh HTN, DMII, vertigo, admitted with acute onset weakness. states on day prior to admission while standing he felt his legs get suddenly weak. he went back inside and laid down but was unable to get up due to leg weakness. also reports weakness in arms R>L. pt seen and examined today in nad. denies any palpitations, chest pain, or sob. no pnd, orthopnea, or le edema. no lightheadedness, dizziness, syncope, or near syncope. CVA -being worked up for possible CVA by neurology -cont tele monitoring to evaluate for occult arrhythmia -check echo -cont ASA and statin will follow
[2019-12-28] MEDS: ATORVASTATIN CA 80 MG TABLET (FP) PO SCH (22:09)
[2019-12-28] MEDS: METOPROLOL TARTRATE 25 MG TABLET (FP) PO SCH (22:09)
--- NOTE | 2019-12-29 00:21 | CONSULT ---
Consult Consult Specialty:: Endocrine Referred by:: Dr.Iyad Zarate Reason for Consultation:: DMT2/Neuropathy - History of Present Illness Chief Complaint: high sugars History of Present Illness: 64 year old male with a significant past medical history Diabetes Mellitus Type 2,HLD,HTN,Smoker for 20years 1ppd, presents to the ED with a stroke x36 hours and a fall yesterday. Patient stated that he was unable to ambulate or speak p roperly,felt weakness and off balance was unable to hold his urine,denies cp fever cough or vomiting.he was suppose to take medication for diabetes was unsure of which type.denies hypoglycemia. 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 Cardio/Vascular: Yes: HTN Endocrine: Yes: Diabetes Mellitus - Alcohol/Substance Use Hx Alcohol Use: No - Smoking History Smoking history: Current every day smoker Have you smoked in the past 12 months: Yes Aproximately how many cigarettes per day: 10 If you are a former smoker, when did you quit?: 3 days - Social History ADL: Independent History of Recent Travel: No Home Medications - Allergies Allergies/Adverse Reactions: Allergies Allergy/AdvReac Type Severity Reaction Status Date / Time No Known Drug Allergies Allergy Mild Verified 12/27/19 14:23 - Home Medications Home Medications: Ambulatory Orders Insulin (Novolog) [Novolog Flexpen -] 0 units SQ ACHS 02/11/17 Meclizine HCl 25 mg PO TID PRN #15 tablet 09/04/18 Review of Systems - Review of Systems Constitutional: reports: Lethargy, Unintentional Wgt. Loss Eyes: reports: Blurred Vision HENT: reports: Difficult Swallowing Neck: reports: No Symptoms Cardiovascular: reports: No Symptoms Respiratory: reports: No Symptoms Gastrointestinal: reports: Bloating, Nausea Genitourinary: reports: Urgency Breasts: reports: No Symptoms Reported Neurological: reports: Change in Speech, Confusion, Numbness, Parasthesia, Tremors, Unsteady Gait, Weakness Endocrine: reports: Unexplained Weight Loss Physical Exam Vital Signs: Vital Signs Temperature 97.1 F L 12/28/19 22:00 Pulse Rate 85 12/28/19 22:00 Respiratory Rate 18 12/28/19 23:48 Blood Pressure 141/82 12/28/19 22:00 O2 Sat by Pulse Oximetry (%) 97 07/05/20 23:48 Constitutional: Yes: Anxious Eyes: Yes: EOM Intact HENT: Yes: Normocephalic Neck: Yes: Trachea Midline Cardiovascular: Yes: Regular Rate and Rhythm Respiratory: Yes: CTA Bilaterally Gastrointestinal: Yes: Normal Bowel Sounds Labs: CBC, BMP 12/28/19 06:20 12/28/19 06:20 Problem List - Problems (1) Type 2 diabetes mellitus with diabetic neuropathic arthropathy Code(s): E11.610 - TYPE 2 DIABETES MELLITUS W DIABETIC NEUROPATHIC ARTHROPATHY Qualifiers: Diabetes mellitus shelter insulin use: without shelter use Qualified Code(s): E11.610 - Type 2 diabetes mellitus with diabetic neuropathic arthropathy (2) Cerebrovascular accident (CVA) Code(s): I63.9 - CEREBRAL INFARCTION, UNSPECIFIED Qualifiers: CVA mechanism: unspecified Qualified Code(s): I63.9 - Cerebral infarction, unspecified (3) Diabetes Code(s): E11.9 - TYPE 2 DIABETES MELLITUS WITHOUT COMPLICATIONS (4) HLD (hyperlipidemia) Code(s): E78.5 - HYPERLIPIDEMIA, UNSPECIFIED (5) Dehydration Code(s): E86.0 - DEHYDRATION (6) Hyperglycemia Code(s): R73.9 - HYPERGLYCEMIA, UNSPECIFIED (7) Vertigo Code(s): R42 - DIZZINESS AND GIDDINESS Assessment/Plan Current Active Problems Cerebrovascular accident (CVA) (Acute) Diabetes (Acute) HLD (hyperlipidemia) (Acute) Type 2 diabetes mellitus with diabetic neuropathic arthropathy (Acute) Abnormal Lab Results 12/28/19 12/28/19 12/28/19 06:20 06:20 06:20 MCV 99.4 H RDW 11.8 L Random Glucose 243 H Hemoglobin A1c % 10.4 H Total Bilirubin 1.1 H C-Reactive Protein 1.2 H Triglycerides 177 H Cholesterol 232 H Total LDL Cholesterol 140 H HDL Cholesterol 65 H Laboratory Results - last 24 hr 12/28/19 12/28/19 12/28/19 06:20 06:20 06:20 WBC 8.8 RBC 4.61 Hgb 15.1 Hct 45.9 MCV 99.4 H MCH 32.8 MCHC 33.0 RDW 11.8 L Plt Count 160 MPV 10.9 PT with INR 11.90 INR 1.01 PTT (Actin FS) 32.1 Sodium 138 Potassium 3.9 Chloride 101 Carbon Dioxide 25 Anion Gap 12 BUN 11.3 Creatinine 0.6 Est GFR (CKD-EPI)AfAm 124.89 Est GFR (CKD-EPI)NonAf 107.76 POC Glucometer Random Glucose 243 H Hemoglobin A1c % Calcium 9.2 Phosphorus 3.2 Magnesium 2.2 Total Bilirubin 1.1 H AST 16 ALT 20 Alkaline Phosphatase 60 Creatine Kinase 191 Creatine Kinase Index 0.5 CK-MB (CK-2) 1.1 Troponin I < 0.02 C-Reactive Protein 1.2 H Total Protein 7.0 Albumin 3.5 Triglycerides 177 H Cholesterol 232 H Total LDL Cholesterol 140 H HDL Cholesterol 65 H Vitamin B12 433 TSH 0.86 12/28/19 12/28/19 12/28/19 06:20 11:59 16:50 WBC RBC Hgb Hct MCV MCH MCHC RDW Plt Count MPV PT with INR INR PTT (Actin FS) Sodium Potassium Chloride Carbon Dioxide Anion Gap BUN Creatinine Est GFR (CKD-EPI)AfAm Est GFR (CKD-EPI)NonAf POC Glucometer 210 244 Random Glucose Hemoglobin A1c % 10.4 H Calcium Phosphorus Magnesium Total Bilirubin AST ALT Alkaline Phosphatase Creatine Kinase Creatine Kinase Index CK-MB (CK-2) Troponin I C-Reactive Protein Total Protein Albumin Triglycerides Cholesterol Total LDL Cholesterol HDL Cholesterol Vitamin B12 TSH plan: bgm qid novolog scale levemir 15 units am daily diet and nutrition follow up for diabetic cgms sensor
[2019-12-29] MEDS: INSULIN SLIDING SCALE (NOVOLOG) 1 VIAL SQ SCH ×4 (06:29→22:19)
[2019-12-29] MEDS: HEPARIN NA (PORCINE) 5,000 UNITS/ML 1ML VIAL SQ SCH ×3 (06:30→22:22)
[2019-12-29] MEDS ORDERED: FAMOTIDINE 20 MG/50 ML IVPB 20 MG/50 ML MG IVPB ONE (06:34)
[2019-12-29] MEDS ORDERED: INSULIN (LEVEMIR) 100 UNITS/ML UNITS SQ SCH ×2 (07:00→22:00)
--- NOTE | 2019-12-29 08:41 | PN ---
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 (short form) - Note 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: Neurology HISTORY OF PRESENT ILLNESS: Secrette siding stapler used Patient is a 64 y/o M with a significant past medical history of IDDM and HTN who presented to [facility] due to sudden onset extremity weakness. Patient endorses that yesterday afternoon (day prior to admission) he was waiting outside his home for a taxi. While waiting for the taxi, patient began to feel his legs become very weak; patient subsequently went back into his home. Later that night, patient could not get up from his bed to urinate and subsequently urinated on himself. Patient states he has never experienced these symptoms before. Endorses diffuse weakness in both of arms and legs as well as decreased sensation throughout his entire body. Denies facial droop, altered mental status, blurry vision, chest pain, shortness of breath, or syncope. Head CT completed, with no acute pathology. Carotid color flow doppler reviewed and demonstrated moderate intimal thickening in distal CCA up to bifurcation. Also, tiny plaques at CCA without significant stenosis,B/L. Echo with doppler ordered, yet to be completed. Total LDL 154, HDL 74, Cholesterol 250mg, triglycerides 127. Pt started on Aspirin 81mg, statin 80mg. Brain MRI completed, reviewed and discussed with patient in detail. imaging demonstrated multiple acute/subacute foci of infarctionalong the superior right ventricle and high frontal convexity. Not taking aspirin at home and I discussed with him the importance of taking antiplatelet medication for CVA prevention. Excessively high LDL also concern and therefore receiving statin therapy. Carotid Dopplers also reviewed and showed moderate thickening with tiny plaques but no hemodynamically significant stenosis. Active Medications Acetaminophen (Tylenol -) 650 mg PO Q4H PRN PRN Reason: PAIN LEVEL 1-5 Last Admin: 12/28/19 14:10 Dose: 650 mg Documented by: Aspirin (Asa -) 81 mg PO DAILY [facility] Last Admin: 12/28/19 09:00 Dose: Not Given Documented by: Atorvastatin Calcium (Lipitor -) 80 mg PO HS [facility] Last Admin: 12/28/19 22:09 Dose: 80 mg Documented by: Heparin Sodium (Porcine) (Heparin -) 5,000 unit SQ TID [facility] Last Admin: 12/29/19 06:30 Dose: 5,000 unit Documented by: Sodium Chloride (Normal Saline -) 1,000 mls @ 75 mls/hr IV ASDIR [facility] Last Admin: 12/28/19 12:48 Dose: Not Given Documented by: Insulin Aspart (Novolog Vial Sliding Scale -) 1 vial SQ ACHS [facility]; Protocol Last Admin: 12/29/19 06:29 Dose: 5 units Documented by: Insulin Detemir (Levemir Vial) 15 units SQ AM [facility] Last Admin: 12/29/19 06:34 Dose: 15 units Documented by: Metoprolol Tartrate (Lopressor -) 12.5 mg PO BID [facility] Last Admin: 12/28/19 22:09 Dose: 12.5 mg Documented by: Pneumococcal 13-Valent Conj Vacc (Prevnar 13 Syringe -) 0.5 ml IM .ONCE ONE Stop: 12/28/19 02:51 PHYSICAL EXAMINATION Vital Signs Period Temp Pulse Resp BP Sys/Llamas Pulse Ox Last 24 Hr 97.1 F-99.0 F 76-85 18-20 122-141/64-90 95-97 GENERAL: Awake, alert, and fully oriented, in no acute distress. HEAD: Normal with no signs of trauma. EYES: Pupils equal, round and reactive to light, extraocular movements intact, sclera anicteric, conjunctiva clear. No lid lag. EARS, NOSE, THROAT: Ears normal, nares patent, oropharynx clear without exudates. Moist mucous membranes. NECK: Normal range of motion, supple without lymphadenopathy, JVD, or masses. LUNGS: Breath sounds equal, clear to auscultation bilaterally. No wheezes, and no crackles. No accessory muscle use. HEART: Regular rate and rhythm, normal S1 and S2 without murmur, rub or gallop. ABDOMEN: Soft, nontender, not distended, normoactive bowel sounds, no guarding, no rebound, no masses. No hepatomegaly or splenomegaly. MUSCULOSKELETAL: Normal range of motion at all joints. No bony deformities or tenderness. No CVA tenderness. UPPER EXTREMITIES: 2+ pulses, warm, well-perfused. No cyanosis. No clubbing. No peripheral edema. LOWER EXTREMITIES: 2+ pulses, warm, well-perfused. No calf tenderness. No peripheral edema. NEUROLOGICAL: Cranial nerves II-XII intact. Finger to nose difficulty, moves all extremities equally, sensory intact, not pariticpating in confrontation testing PSYCHIATRIC: Cooperative. Good eye contact. Appropriate mood and affect. SKIN: Warm, dry, normal turgor, no rashes or lesions noted, normal capillary refill. CBCD WBC 8.8 K/mm3 (4.0-10.0) 12/28/19 06:20 RBC 4.61 M/mm3 (4.00-5.60) 12/28/19 06:20 Hgb 15.1 GM/dL (11.7-16.9) 12/28/19 06:20 Hct 45.9 % (35.4-49) 12/28/19 06:20 MCV 99.4 fl (80-96) H 12/28/19 06:20 MCHC 33.0 g/dl (32.0-35.9) 12/28/19 06:20 RDW 11.8 % (11.9-15.9) L 12/28/19 06:20 Plt Count 160 K/MM3 (134-434) 12/28/19 06:20 MPV 10.9 fl (7.5-11.1) 12/28/19 06:20 CMP Sodium 138 mmol/L (136-145) 12/28/19 06:20 Potassium 3.9 mmol/L (3.5-5.1) 12/28/19 06:20 Chloride 101 mmol/L (98-107) 12/28/19 06:20 Carbon Dioxide 25 mmol/L (21-32) 12/28/19 06:20 Anion Gap 12 MMOL/L (8-16) 12/28/19 06:20 BUN 11.3 mg/dL (7-18) 12/28/19 06:20 Creatinine 0.6 mg/dL (0.55-1.3) 12/28/19 06:20 Random Glucose 243 mg/dL (74-106) H 12/28/19 06:20 Calcium 9.2 mg/dL (8.5-10.1) 12/28/19 06:20 Total Bilirubin 1.1 mg/dL (0.2-1) H 12/28/19 06:20 AST 16 U/L (15-37) 12/28/19 06:20 ALT 20 U/L (13-61) 12/28/19 06:20 Alkaline Phosphatase 60 U/L (45-117) 12/28/19 06:20 Total Protein 7.0 g/dl (6.4-8.2) 12/28/19 06:20 Albumin 3.5 g/dl (3.4-5.0) 12/28/19 06:20 CARDIAC ENZYMES Creatine Kinase 191 U/L (26-308) 12/28/19 06:20 Troponin I < 0.02 ng/ml (0.00-0.05) 12/28/19 06:20 ASSESSMENT/PLAN: Patient is a 64 y/o M with a significant past medical history of IDDM and HTN who presented to [facility] due to sudden onset extremity weakness. Patient endorses that yesterday afternoon (day prior to admission) he was waiting outside his home for a taxi. While waiting for the taxi, patient began to feel his legs become very weak; patient subsequently went back into his home. Later that night, patient could not get up from his bed to urinate and subsequently urinated on himself. Patient states he has never experienced these symptoms be fore. Endorses diffuse weakness in both of arms and legs as well as decreased sensation throughout his entire body. Denies facial droop, altered mental status, blurry vision, chest pain, shortness of breath, or syncope. Head CT completed, with no acute pathology. Total LDL 154, HDL 74, Cholesterol 250mg, triglycerides 127. Pt started on Aspirin 81mg, statin 80mg. Brain MRI completed,reviewed and discussed with patient in detail. imaging demonstrated multiple acute/subacute foci of infarctionalong the superior right ventricle and high frontal convexity. Not taking aspirin at home and I discussed with him the importance of taking antiplatelet medication for CVA prevention. Excessively high LDL also concern and therefore receiving statin therapy. Carotid Dopplers also reviewed and showed moderate thickening with tiny plaques but no hemodynamically significant stenosis. Echo pending. physical therapy as tolerated, fall precautions, may benefit from short-term rehabilitation
--- NOTE | 2019-12-29 09:07 | PN ---
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, Physician - Current Medication List Current Medications: Active Medications Acetaminophen (Tylenol -) 650 mg PO Q4H PRN PRN Reason: PAIN LEVEL 1-5 Last Admin: 12/28/19 14:10 Dose: 650 mg Documented by: Aspirin (Asa -) 81 mg PO DAILY [facility] Last Admin: 12/28/19 09:00 Dose: Not Given Documented by: Atorvastatin Calcium (Lipitor -) 80 mg PO HS [facility] Last Admin: 12/28/19 22:09 Dose: 80 mg Documented by: Heparin Sodium (Porcine) (Heparin -) 5,000 unit SQ TID [facility] Last Admin: 12/29/19 06:30 Dose: 5,000 unit Documented by: Sodium Chloride (Normal Saline -) 1,000 mls @ 75 mls/hr IV ASDIR [facility] Last Admin: 12/28/19 12:48 Dose: Not Given Documented by: Insulin Aspart (Novolog Vial Sliding Scale -) 1 vial SQ ACHS [facility]; Protocol Last Admin: 12/29/19 06:29 Dose: 5 units Documented by: Insulin Detemir (Levemir Vial) 15 units SQ AM [facility] Last Admin: 12/29/19 06:34 Dose: 15 units Documented by: Metoprolol Tartrate (Lopressor -) 12.5 mg PO BID [facility] Last Admin: 12/28/19 22:09 Dose: 12.5 mg Documented by: Pneumococcal 13-Valent Conj Vacc (Prevnar 13 Syringe -) 0.5 ml IM .ONCE ONE Stop: 12/28/19 02:51 - Objective Vital Signs: Vital Signs Temperature 97.9 F 12/29/19 06:00 Pulse Rate 76 12/29/19 06:00 Respiratory Rate 18 12/29/19 06:00 Blood Pressure 136/90 12/29/19 06:00 O2 Sat by Pulse Oximetry (%) 97 12/28/19 23:48 Cardiovascular: Yes: Regular Rate and Rhythm Respiratory: Yes: Regular, CTA Bilaterally Gastrointestinal: Yes: Normal Bowel Sounds, Soft Labs: CBC, BMP 12/28/19 06:20 12/28/19 06:20 INR, PTT INR 1.01 (0.83-1.09) 12/28/19 06:20 Problem List - Problems (1) Cerebrovascular accident (CVA) Assessment/Plan: ct head negative mri results c/w acute and subacutecva asa statin neuro consult Code(s): I63.9 - CEREBRAL INFARCTION, UNSPECIFIED Qualifiers: CVA mechanism: unspecified Qualified Code(s): I63.9 - Cerebral infarction, unspecified (2) Diabetes Assessment/Plan: poorly controlled bgm with ss while npo endo consult Code(s): E11.9 - TYPE 2 DIABETES MELLITUS WITHOUT COMPLICATIONS (3) HLD (hyperlipidemia) Assessment/Plan: continue with statin Code(s): E78.5 - HYPERLIPIDEMIA, UNSPECIFIED
[2019-12-29] MEDS: METOPROLOL TARTRATE 25 MG TABLET (FP) PO SCH ×2 (09:50→22:19)
[2019-12-29] MEDS: ASPIRIN 81 MG CHEWABLE TABLETS PO SCH (09:50)
[2019-12-29] MEDS: RAMIPRIL 2.5 MG CAPSULE (FP) PO SCH (09:50)
[2019-12-29] MEDS: SODIUM CHLORIDE 1,000 ML IV SCH (09:57)
--- NOTE | 2019-12-29 10:16 | EKG ---
Test Reason : Blood Pressure : / mmHG Vent. Rate : 087 BPM Atrial Rate : 087 BPM P-R Int : 136 ms QRS Dur : 078 ms QT Int : 376 ms P-R-T Axes : 070 019 055 degrees QTc Int : 452 ms NORMAL SINUS RHYTHM NORMAL ECG WHEN COMPARED WITH ECG OF 27-DEC-2019 14:58, NO SIGNIFICANT CHANGE WAS FOUND Confirmed by James Christine ([id number]) on 12/29/2019 10:16:22 AM Referred By: Ricki MUHAMMAD Confirmed By:James Christine
--- NOTE | 2019-12-29 10:32 | CONSULT ---
Admitting History and Physical - Admission History of Present Illness: 64 year old male with a significant past medical history of smoking (1Pack - days), insulin dependent diabetes, and hypertension who presents to the ED with a stroke x36 hours and a fall Head CT completed, with no acute pathology. Carotid color flow doppler thickening in distal CCA up to bifurcation. Also, tiny plaques at CCA without significant stenosis,B/L. Brain MRI multiple acute/subacute foci of infarctions along the superior right ventricle and high frontal convexity. Selected Entries 12/28/19 12/28/19 12/28/19 02:00 06:00 09:00 Breakfast Diet Tolerated Lunch Supper Temperature 98.6 F 98.2 F Blood Pressure 134/72 132/76 O2 Sat by Pulse 97 Oximetry (%) Oxygen Delivery Room Air Method 12/28/19 12/28/19 12/28/19 10:25 10:55 13:19 Breakfast NPO Diet Tolerated Lunch NPO Supper Temperature 98.6 F Blood Pressure 140/77 O2 Sat by Pulse 97 Oximetry (%) Oxygen Delivery Room Air Method 12/28/19 12/28/19 12/28/19 14:16 17:59 22:00 Breakfast Diet Tolerated Well Lunch Supper 100% Temperature 98.4 F 99.0 F 97.1 F L Blood Pressure 130/78 122/64 141/82 O2 Sat by Pulse 95 Oximetry (%) Oxygen Delivery Room Air Method 12/28/19 12/29/19 12/29/19 23:48 02:00 06:00 Breakfast Diet Tolerated Lunch Supper Temperature 98.6 F 97.9 F Blood Pressure 134/77 136/90 O2 Sat by Pulse 97 Oximetry (%) Oxygen Delivery Room Air Method 12/29/19 12/29/19 09:45 10:09 Breakfast 100% Diet Tolerated Well Lunch Supper Temperature 98.6 F Blood Pressure 132/74 O2 Sat by Pulse Oximetry (%) Oxygen Delivery Method Selected Entries 12/28/19 12/29/19 12/29/19 22:00 10:09 14:22 Breakfast 100% Diet Tolerated Well Well Well Lunch 100% Supper 100% Laboratory Tests 12/27/19 12/27/19 12/28/19 14:05 16:15 06:20 WBC 11.9 H 8.8 COVID-19 (JOLYNN) Pending Pt passed Dysphagia screen, was NPO until 12/27 with initial order of Chopped honey thick, now upgraded to reg/thin. History Source: Patient Limitations to Obtaining History: Clinical Condition - Past Medical History NURSE GYNECOLOGY: Yes: Vertigo Cardiovascular: Yes: HTN Endocrine: Yes: Diabetes Mellitus - Smoking History Smoking history: Current every day smoker Have you smoked in the past 12 months: Yes Aproximately how many cigarettes per day: 10 If you are a former smoker, when did you quit?: 3 days - Alcohol/Substance Use Hx Alcohol Use: No - Social History ADL: Independent History of Recent Travel: No History - Admission Reason For Visit: CAREBROVASCULAR ACCIDENT (CVA) - Diagnostics X-ray: Report Reviewed CT Scan: Report Reviewed MRI: Report Reviewed (Brain MRI multiple acute/subacute foci of infarctionalong the superior right ventricle and high frontal convexity) - General Mental Status: Alert and Oriented, Awake and Alert, Able to Follow Commands, Vague (verbal, slow to respond and verbalize) Attention: Distractible, Mild Impairment Ability to Follow Directions: Fair Head/Neck Control: Good - Hearing Hearing: Normal Hearing Aide: No Speech Evaluation - Communication Primary Language: FAROESE Secondary Language: MALAY Communication: Yes: Simple Responses Oral Expression Ability: Yes: Mild Impairment - Speech Production Able to Make Needs Known: Yes: WNL Intelligibility: Yes: WNL - Speech Characteristics Voice Loudness: Normal Voice Pitch: Yes: Normal Voice Phonatory-based Quality: Yes: Normal Speech Pattern: Normal Speech Clarity: < 100% Nasal Resonance: Normal Articulation: Yes: Imprecise - Language/Auditory Comprehension Follows: Yes: 1 Stage Simple Commands Observation: Able to respond to yes/no queries: Yes, Yes/No Confusion: No, Comprehends Conversational Speech: Yes - Language/Verbal Expression Functional Communication Status: Yes: Mildly Impaired (delayed, slow to respond) - Swallow Evaluation/Bedside Assessment Current Nutritional Intake: Regular, Thin Liquids Oral Secretions: Yes: WFL Dentition: Yes: Adequate Laryngeal Movement: Able to Palpate Bolus Size: WFL Labial Seal: WFL Chewing: WFL Oral Prep Time: WFL A-P Transit: WFL Timing of Swallow: WFL Coughing/Throat Clear: No Change in Voice: No Recommendations - Speech Evaluation, Impression/Plan Impression: Verbal, mildly slow in response. Covid Pending. To evaluate further once Covid results obtained. Tolerating diet - Dysphagia Impressions/Plan Swallowing Skills: WFL Dysphagia Impressions: No Impairment, Ongoing Evaluation *Silent aspiration: cannot be R/O at bedside - Recommendations Diet Consistency: Regular Medication Administration: Whole with water Liquids: Thin Liquids
--- NOTE | 2019-12-29 12:31 | PN ---
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, Physician Chief Complaint: CVA History of Present Illness: This is a 64 year old man with a pmh OF htn, dm2, and verigo. He was admitted with acute onset left leg weakness and arm weakness RT>LT. Carotid Doppler 12/28/2019 showed moderate intimal thickening in the distal common carotid artery up to the bifurcation. Tiny plaques at the common carotid bifurcation without evidence of hemodynamically significant stenosis bilaterally. MRI 12/28/2019 Moderate atrophy, microvascular ischemia, multiple foci of acute/subacute infarcts in the right frontal lobe. . - Current Medication List Current Medications: Active Medications Acetaminophen (Tylenol -) 650 mg PO Q4H PRN PRN Reason: PAIN LEVEL 1-5 Last Admin: 12/28/19 14:10 Dose: 650 mg Documented by: Aspirin (Asa -) 81 mg PO DAILY [facility] Last Admin: 12/29/19 09:50 Dose: 81 mg Documented by: Atorvastatin Calcium (Lipitor -) 80 mg PO HS [facility] Last Admin: 12/28/19 22:09 Dose: 80 mg Documented by: Heparin Sodium (Porcine) (Heparin -) 5,000 unit SQ TID [facility] Last Admin: 12/29/19 06:30 Dose: 5,000 unit Documented by: Sodium Chloride (Normal Saline -) 1,000 mls @ 75 mls/hr IV ASDIR [facility] Last Admin: 12/29/19 09:57 Dose: Not Given Documented by: Insulin Aspart (Novolog Vial Sliding Scale -) 1 vial SQ ACHS [facility]; Protocol Last Admin: 12/29/19 11:59 Dose: 5 units Documented by: Insulin Detemir (Levemir Vial) 15 units SQ AM [facility] Last Admin: 12/29/19 06:34 Dose: 15 units Documented by: Metoprolol Tartrate (Lopressor -) 12.5 mg PO BID [facility] Last Admin: 12/29/19 09:50 Dose: 12.5 mg Documented by: Pneumococcal 13-Valent Conj Vacc (Prevnar 13 Syringe -) 0.5 ml IM .ONCE ONE Stop: 12/28/19 02:51 Ramipril (Altace -) 2.5 mg PO DAILY [facility] Last Admin: 12/29/19 09:50 Dose: 2.5 mg Documented by: - Objective Vital Signs: Vital Signs Temperature 98.6 F 12/29/19 09:45 Pulse Rate 81 07/06/20 09:45 Respiratory Rate 18 12/29/19 09:45 Blood Pressure 132/74 12/29/19 09:45 O2 Sat by Pulse Oximetry (%) 97 12/28/19 23:48 Constitutional: Yes: No Distress HENT: Yes: WNL Neck: Yes: WNL Cardiovascular: Yes: Regular Rate and Rhythm, S3, S4 Respiratory: Yes: CTA Bilaterally Gastrointestinal: Yes: Soft Edema: No Labs: CBC, BMP 12/28/19 06:20 12/28/19 06:20 INR, PTT INR 1.01 (0.83-1.09) 12/28/19 06:20 Assessment/Plan 64 year old man with a pmh OF htn, dm2, and verigo. He was admitted with acute onset left leg weakness and arm weakness RT>LT. Carotid Doppler 12/28/2019 showed moderate intimal thickening in the distal common carotid artery up to the bifurcation. Tiny plaques at the common carotid bifurcation without evidence of hemodynamically significant stenosis bilaterally. MRI 12/28/2019 Moderate atrophy, microvascular ischemia, multiple foci of acute/subacute infarcts in the right frontal lobe. CVA Neurology Evaluation in progress Continue ASA 81 mg daily Agree with high intensity statin therapy BP controlled on metoprolol 12.5 mg PO BID and Ramipril 2.5 mg daily Echocardiogram pending Active Medications Acetaminophen (Tylenol -) 650 mg PO Q4H PRN PRN Reason: PAIN LEVEL 1-5 Last Admin: 12/28/19 14:10 Dose: 650 mg Documented by: Aspirin (Asa -) 81 mg PO DAILY [facility] Last Admin: 12/29/19 09:50 Dose: 81 mg Documented by: Atorvastatin Calcium (Lipitor -) 80 mg PO HS [facility] Last Admin: 12/28/19 22:09 Dose: 80 mg Documented by: Heparin Sodium (Porcine) (Heparin -) 5,000 unit SQ TID [facility] Last Admin: 12/29/19 06:30 Dose: 5,000 unit Documented by: Sodium Chloride (Normal Saline -) 1,000 mls @ 75 mls/hr IV ASDIR [facility] Last Admin: 12/29/19 09:57 Dose: Not Given Documented by: Insulin Aspart (Novolog Vial Sliding Scale -) 1 vial SQ ACHS [facility]; Protocol Last Admin: 12/29/19 11:59 Dose: 5 units Documented by: Insulin Detemir (Levemir Vial) 15 units SQ AM [facility] Last Admin: 12/29/19 06:34 Dose: 15 units Documented by: Metoprolol Tartrate (Lopressor -) 12.5 mg PO BID [facility] Last Admin: 12/29/19 09:50 Dose: 12.5 mg Documented by: Pneumococcal 13-Valent Conj Vacc (Prevnar 13 Syringe -) 0.5 ml IM .ONCE ONE Stop: 12/28/19 02:51 Ramipril (Altace -) 2.5 mg PO DAILY [facility] Last Admin: 12/29/19 09:50 Dose: 2.5 mg Documented by:
[2019-12-29] MEDS ORDERED: PNEUMOCOCCAL 23 VACCINE 0.5 ML VIAL IM ONE (16:15)
[2019-12-29] MEDS: ATORVASTATIN CA 80 MG TABLET (FP) PO SCH (22:19)
--- NOTE | 2019-12-29 23:23 | PN ---
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 (short form) - Note 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: has elevated bs will need insulin given need for neuropathy and complications Current Active Problems Cerebrovascular accident (CVA) (Acute) Diabetes (Acute) HLD (hyperlipidemia) (Acute) Type 2 diabetes mellitus with diabetic neuropathic arthropathy (Acute) Laboratory Results - last 24 hr 12/27/19 12/29/19 12/29/19 16:15 06:05 16:57 POC Glucometer 223 232 COVID-19 (JOLYNN) Not detected Laboratory Tests 12/28/19 12/28/19 12/28/19 06:20 06:20 11:59 BUN 11.3 Creatinine 0.6 POC Glucometer 210 Random Glucose 243 H Hemoglobin A1c % 10.4 H 12/28/19 12/29/19 16:50 06:05 BUN Creatinine POC Glucometer 244 223 Random Glucose Hemoglobin A1c % dmt2, add metformin 500mg bid januvia 50mg/day levemir 15 units am Problem List - Problems (1) Type 2 diabetes mellitus with diabetic neuropathic arthropathy Code(s): E11.610 - TYPE 2 DIABETES MELLITUS W DIABETIC NEUROPATHIC ARTHROPATHY Qualifiers: Diabetes mellitus shelter insulin use: without buttermaker continuous churn use Qualified Code(s): E11.610 - Type 2 diabetes mellitus with diabetic neuropathic arthropathy (2) Cerebrovascular accident (CVA) Code(s): I63.9 - CEREBRAL INFARCTION, UNSPECIFIED Qualifiers: CVA mechanism: unspecified Qualified Code(s): I63.9 - Cerebral infarction, unspecified (3) Diabetes Code(s): E11.9 - TYPE 2 DIABETES MELLITUS WITHOUT COMPLICATIONS (4) HLD (hyperlipidemia) Code(s): E78.5 - HYPERLIPIDEMIA, UNSPECIFIED (5) Dehydration Code(s): E86.0 - DEHYDRATION (6) Hyperglycemia Code(s): R73.9 - HYPERGLYCEMIA, UNSPECIFIED (7) Vertigo Code(s): R42 - DIZZINESS AND GIDDINESS
[2019-12-30] MEDS: HEPARIN NA (PORCINE) 5,000 UNITS/ML 1ML VIAL SQ SCH ×3 (06:12→21:13)
[2019-12-30] MEDS: INSULIN (LEVEMIR) 100 UNITS/ML UNITS SQ SCH (06:13)
[2019-12-30] MEDS: INSULIN SLIDING SCALE (NOVOLOG) 1 VIAL SQ SCH ×4 (06:13→21:12)
[2019-12-30] MEDS ORDERED: INSULIN (LEVEMIR) 100 UNITS/ML UNITS SQ SCH (07:00)
[2019-12-30] MEDS ORDERED: PT OWN MED DRAWER 7, Y5N ONE (08:35)
--- NOTE | 2019-12-30 09:07 | PN ---
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, Physician - Current Medication List Current Medications: Active Medications Acetaminophen (Tylenol -) 650 mg PO Q4H PRN PRN Reason: PAIN LEVEL 1-5 Last Admin: 12/28/19 14:10 Dose: 650 mg Documented by: Aspirin (Asa -) 81 mg PO DAILY [facility] Last Admin: 12/29/19 09:50 Dose: 81 mg Documented by: Atorvastatin Calcium (Lipitor -) 80 mg PO HS [facility] Last Admin: 12/29/19 22:19 Dose: 80 mg Documented by: Heparin Sodium (Porcine) (Heparin -) 5,000 unit SQ TID [facility] Last Admin: 12/30/19 06:12 Dose: 5,000 unit Documented by: Sodium Chloride (Normal Saline -) 1,000 mls @ 75 mls/hr IV ASDIR [facility] Last Admin: 12/29/19 09:57 Dose: Not Given Documented by: Insulin Aspart (Novolog Vial Sliding Scale -) 1 vial SQ ACHS [facility]; Protocol Last Admin: 12/30/19 06:13 Dose: 5 units Documented by: Insulin Detemir (Levemir Vial) 10 units SQ AM [facility] Last Admin: 12/30/19 06:13 Dose: 10 units Documented by: Metoprolol Tartrate (Lopressor -) 12.5 mg PO BID [facility] Last Admin: 12/29/19 22:19 Dose: 12.5 mg Documented by: Ramipril (Altace -) 2.5 mg PO DAILY [facility] Last Admin: 12/29/19 09:50 Dose: 2.5 mg Documented by: - Objective Vital Signs: Vital Signs Temperature 98.0 F 12/30/19 06:00 Pulse Rate 72 12/30/19 06:00 Respiratory Rate 19 12/30/19 06:00 Blood Pressure 127/73 12/30/19 06:00 O2 Sat by Pulse Oximetry (%) 97 12/29/19 21:00 Cardiovascular: Yes: Regular Rate and Rhythm Respiratory: Yes: Regular, CTA Bilaterally Gastrointestinal: Yes: Normal Bowel Sounds, Soft. No: Tenderness Neurological: Yes: Alert, Oriented Labs: CBC, BMP 12/28/19 06:20 12/28/19 06:20 INR, PTT INR 1.01 (0.83-1.09) 12/28/19 06:20 Problem List - Problems (1) Cerebrovascular accident (CVA) Assessment/Plan: ct head negative mri results c/w acute and subacutecva asa statin neuro consult noted PT dc planning--snf Code(s): I63.9 - CEREBRAL INFARCTION, UNSPECIFIED Qualifiers: CVA mechanism: unspecified Qualified Code(s): I63.9 - Cerebral infarction, unspecified (2) Diabetes Assessment/Plan: poorly controlled bgm with ss while npo endo consult Code(s): E11.9 - TYPE 2 DIABETES MELLITUS WITHOUT COMPLICATIONS (3) HLD (hyperlipidemia) Assessment/Plan: continue with statin Code(s): E78.5 - HYPERLIPIDEMIA, UNSPECIFIED
[2019-12-30] MEDS: ASPIRIN 81 MG CHEWABLE TABLETS PO SCH (10:25)
[2019-12-30] MEDS: METOPROLOL TARTRATE 25 MG TABLET (FP) PO SCH ×2 (10:25→21:13)
[2019-12-30] MEDS: RAMIPRIL 2.5 MG CAPSULE (FP) PO SCH (10:25)
[2019-12-30] MEDS: SODIUM CHLORIDE 1,000 ML IV SCH (10:25)
--- NOTE | 2019-12-30 10:35 | PN ---
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, [employer] - Note 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: Selected Entries 12/29/19 12/29/19 12/30/19 10:09 14:22 02:00 Breakfast 100% Diet Tolerated Well Well Lunch 100% Temperature 98.0 F Pulse Rate 69 Blood Pressure 131/71 12/30/19 12/30/19 12/30/19 06:00 09:22 10:27 Breakfast 100% Diet Tolerated Well Lunch Temperature 98.0 F 98 F Pulse Rate 72 87 Blood Pressure 127/73 121/80 Laboratory Tests 12/27/19 12/27/19 12/28/19 14:05 16:15 06:20 WBC 11.9 H 8.8 COVID-19 (JOLYNN) Not detected Verbal, limited speech initiation and simple responses sec to CVA'S vs Eng as sec language. Flat affect. On reg diet/thin liquids (+) strokes on MRI
--- NOTE | 2019-12-30 10:54 | PN ---
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 (short form) - Note 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: Neurology HISTORY OF PRESENT ILLNESS: Patient is a 64 y/o M with a significant past medical history of IDDM and HTN who presented to [facility] due to sudden onset extremity weakness. Patient endorses that yesterday afternoon (day prior to admission) he was waiting outside his home for a taxi. While waiting for the taxi, patient began to feel his legs become very weak; patient subsequently went back into his home. Later that night, patient could not get up from his bed to urinate and subsequently urinated on himself. Patient states he has never experienced these symptoms before. Endorses diffuse weakness in both of arms and legs as well as decreased sensation throughout his entire body. Denies facial droop, altered mental status, blurry vision, chest pain, shortness of breath, or syncope. Head CT completed, with no acute pathology. Carotid color flow doppler reviewed and demonstrated moderate intimal thickening in distal CCA up to bifurcation. Also, tiny plaques at CCA without significant stenosis,B/L. Echo with doppler ordered, yet to be completed. Total LDL 154, HDL 74, Cholesterol 250mg, triglycerides 127. Pt started on Aspirin 81mg, statin 80mg. Brain MRI completed, reviewed and discussed with patient in detail. imaging demonstrated multiple acute/subacute foci of infarctionalong the superior right ventricle and high frontal convexity. Not taking aspirin at home and I discussed with him the importance of taking an tiplatelet medication for CVA prevention. Excessively high LDL also concern and therefore receiving statin therapy. Carotid Dopplers also reviewed and showed moderate thickening with tiny plaques but no hemodynamically significant stenosis. No new neurologic issues, continue to have medical optimization. Active Medications Acetaminophen (Tylenol -) 650 mg PO Q4H PRN PRN Reason: PAIN LEVEL 1-5 Last Admin: 12/28/19 14:10 Dose: 650 mg Documented by: Aspirin (Asa -) 81 mg PO DAILY [facility] Last Admin: 12/30/19 10:25 Dose: 81 mg Documented by: Atorvastatin Calcium (Lipitor -) 80 mg PO HS [facility] Last Admin: 12/29/19 22:19 Dose: 80 mg Documented by: Heparin Sodium (Porcine) (Heparin -) 5,000 unit SQ TID [facility] Last Admin: 12/30/19 06:12 Dose: 5,000 unit Documented by: Sodium Chloride (Normal Saline -) 1,000 mls @ 75 mls/hr IV ASDIR [facility] Last Admin: 12/30/19 10:25 Dose: Not Given Documented by: Insulin Aspart (Novolog Vial Sliding Scale -) 1 vial SQ ACHS [facility]; Protocol Last Admin: 12/30/19 06:13 Dose: 5 units Documented by: Insulin Detemir (Levemir Vial) 10 units SQ AM [facility] Last Admin: 12/30/19 06:13 Dose: 10 units Documented by: Metoprolol Tartrate (Lopressor -) 12.5 mg PO BID [facility] Last Admin: 12/30/19 10:25 Dose: 12.5 mg Documented by: Ramipril (Altace -) 2.5 mg PO DAILY [facility] Last Admin: 12/30/19 10:25 Dose: 2.5 mg Documented by: PHYSICAL EXAMINATION Vital Signs Period Temp Pulse Resp BP Sys/Llamas Pulse Ox Last 24 Hr 97.6 F-98.9 F 69-87 18-20 121-135/56-80 95-97 GENERAL: Awake, alert, and fully oriented, in no acute distress. HEAD: Normal with no signs of trauma. EYES: Pupils equal, round and reactive to light, extraocular movements intact, sclera anicteric, conjunctiva clear. No lid lag. EARS, NOSE, THROAT: Ears normal, nares patent, oropharynx clear without exudates. Moist mucous membranes. NECK: Normal range of motion, supple without lymphadenopathy, JVD, or masses. LUNGS: Breath sounds equal, clear to auscultation bilaterally. No wheezes, and no crackles. No accessory muscle use. HEART: Regular rate and rhythm, normal S1 and S2 without murmur, rub or gallop. ABDOMEN: Soft, nontender, not distended, normoactive bowel sounds, no guarding, no rebound, no masses. No hepatomegaly or splenomegaly. MUSCULOSKELETAL: Normal range of motion at all joints. No bony deformities or tenderness. No CVA tenderness. UPPER EXTREMITIES: 2+ pulses, warm, well-perfused. No cyanosis. No clubbing. No peripheral edema. LOWER EXTREMITIES: 2+ pulses, warm, well-perfused. No calf tenderness. No peripheral edema. NEUROLOGICAL: Cranial nerves II-XII intact. Finger to nose difficulty, moves all extremities equally, sensory intact, not pariticpating in confrontation testing PSYCHIATRIC: Cooperative. Good eye contact. Appropriate mood and affect. SKIN: Warm, dry, normal turgor, no rashes or lesions noted, normal capillary refill. CBCD WBC 8.8 K/mm3 (4.0-10.0) 12/28/19 06:20 RBC 4.61 M/mm3 (4.00-5.60) 12/28/19 06:20 Hgb 15.1 GM/dL (11.7-16.9) 12/28/19 06:20 Hct 45.9 % (35.4-49) 12/28/19 06:20 MCV 99.4 fl (80-96) H 12/28/19 06:20 MCHC 33.0 g/dl (32.0-35.9) 12/28/19 06:20 RDW 11.8 % (11.9-15.9) L 12/28/19 06:20 Plt Count 160 K/MM3 (134-434) 12/28/19 06:20 MPV 10.9 fl (7.5-11.1) 12/28/19 06:20 CMP Sodium 138 mmol/L (136-145) 12/28/19 06:20 Potassium 3.9 mmol/L (3.5-5.1) 12/28/19 06:20 Chloride 101 mmol/L (98-107) 12/28/19 06:20 Carbon Dioxide 25 mmol/L (21-32) 12/28/19 06:20 Anion Gap 12 MMOL/L (8-16) 12/28/19 06:20 BUN 11.3 mg/dL (7-18) 12/28/19 06:20 Creatinine 0.6 mg/dL (0.55-1.3) 12/28/19 06:20 Calcium 9.2 mg/dL (8.5-10.1) 12/28/19 06:20 Total Bilirubin 1.1 mg/dL (0.2-1) H 12/28/19 06:20 AST 16 U/L (15-37) 12/28/19 06:20 ALT 20 U/L (13-61) 12/28/19 06:20 Alkaline Phosphatase 60 U/L (45-117) 12/28/19 06:20 Total Protein 7.0 g/dl (6.4-8.2) 12/28/19 06:20 Albumin 3.5 g/dl (3.4-5.0) 12/28/19 06:20 ASSESSMENT/PLAN: Patient is a 64 y/o M with a significant past medical history of IDDM and HTN who presented to [facility] due to sudden onset extremity weakness. Patient endorses that yesterday afternoon (day prior to admission) he was waiting outside his home for a taxi. While waiting for the taxi, patient began to feel his legs become very weak; patient subsequently went back into his home. Later that night, patient could not get up from his bed to urinate and subsequently urinated on himself. Patient states he has never experienced these symptoms before. Endorses diffuse weakness in both of arms and legs as well as decreased sensation throughout his entire body. Denies facial droop, altered mental status, blurry vision, chest pain, shortness of breath, or syncope. Head CT completed, with no acute pathology. Total LDL 154, HDL 74, Cholesterol 250mg, triglycerides 127. Pt started on Aspirin 81mg, statin 80mg. Brain MRI compl eted,reviewed and discussed with patient in detail. imaging demonstrated multiple acute/subacute foci of infarctionalong the superior right ventricle and high frontal convexity. Not taking aspirin at home and I discussed with him the importance of taking antiplatelet medication for CVA prevention. Excessively high LDL also concern and therefore receiving statin therapy. Carotid Dopplers also reviewed and showed moderate thickening with tiny plaques but no hemodynamically significant stenosis. physical therapy as tolerated, fall precautions, may benefit from short-term rehabilitation. Recheck LDL in 3 mons, consider reducing statin dosing if able. Ideally LDL <70.
--- NOTE | 2019-12-30 12:36 | PN ---
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, Physician Chief Complaint: CVA History of Present Illness: This is a 64 year old man with a pmh OF htn, dm2, and verigo. He was admitted with acute onset left leg weakness and arm weakness RT>LT. Carotid Doppler 12/28/2019 showed moderate intimal thickening in the distal common carotid artery up to the bifurcation. Tiny plaques at the common carotid bifurcation without evidence of hemodynamically significant stenosis bilaterally. MRI 12/28/2019 Moderate atrophy, microvascular ischemia, multiple foci of acute/subacute infarcts in the right frontal lobe. Echocardiogram 12/30/2019: Normal LV function EF 65% Trace MR Trace TR . - Current Medication List Current Medications: Active Medications Acetaminophen (Tylenol -) 650 mg PO Q4H PRN PRN Reason: PAIN LEVEL 1-5 Last Admin: 12/28/19 14:10 Dose: 650 mg Documented by: Aspirin (Asa -) 81 mg PO DAILY [facility] Last Admin: 12/30/19 10:25 Dose: 81 mg Documented by: Atorvastatin Calcium (Lipitor -) 80 mg PO HS [facility] Last Admin: 12/29/19 22:19 Dose: 80 mg Documented by: Heparin Sodium (Porcine) (Heparin -) 5,000 unit SQ TID [facility] Last Admin: 12/30/19 06:12 Dose: 5,000 unit Documented by: Sodium Chloride (Normal Saline -) 1,000 mls @ 75 mls/hr IV ASDIR [facility] Last Admin: 12/30/19 10:25 Dose: Not Given Documented by: Insulin Aspart (Novolog Vial Sliding Scale -) 1 vial SQ ACHS [facility]; Protocol Last Admin: 12/30/19 11:17 Dose: 5 units Documented by: Insulin Detemir (Levemir Vial) 10 units SQ AM [facility] Last Admin: 12/30/19 06:13 Dose: 10 units Documented by: Metoprolol Tartrate (Lopressor -) 12.5 mg PO BID [facility] Last Admin: 12/30/19 10:25 Dose: 12.5 mg Documented by: Ramipril (Altace -) 2.5 mg PO DAILY [facility] Last Admin: 12/30/19 10:25 Dose: 2.5 mg Documented by: - Objective Vital Signs: Vital Signs Temperature 98 F 12/30/19 09:22 Pulse Rate 87 12/30/19 09:22 Respiratory Rate 20 12/30/19 09:22 Blood Pressure 121/80 12/30/19 09:22 O2 Sat by Pulse Oximetry (%) 95 12/30/19 10:00 Constitutional: Yes: No Distress Eyes: Yes: WNL HENT: Yes: WNL Neck: Yes: WNL Cardiovascular: Yes: Regular Rate and Rhythm, S1, S2 Respiratory: Yes: CTA Bilaterally Gastrointestinal: Yes: Soft Edema: No Labs: CBC, BMP 12/28/19 06:20 12/28/19 06:20 INR, PTT INR 1.01 (0.83-1.09) 12/28/19 06:20 Assessment/Plan 64 year old man with a pmh OF htn, dm2, and verigo. He was admitted with acute onset left leg weakness and arm weakness RT>LT. Carotid Doppler 12/28/2019 showed moderate intimal thickening in the distal common carotid artery up to the bifurcation. Tiny plaques at the common carotid bifurcation without evidence of hemodynamically significant stenosis bilaterally. MRI 12/28/2019 Moderate atrophy, microvascular ischemia, multiple foci of acute/subacute infarcts in the right frontal lobe. CVA Neurology Evaluation in progress Continue ASA 81 mg daily Agree with high intensity statin therapy BP controlled on metoprolol 12.5 mg PO BID and Ramipril 2.5 mg daily Echocardiogram Normal LV function, EF 65%, trace MR, trace TR
--- NOTE | 2019-12-30 12:54 | ECHO ---
Version: 1 Name: PIETER FRANCO Exam: Adult Echocardiogram Study Date: 12/30/2019, 9:46 AM Age: 64 Years MMode/2D Measurements & Calculations IVSd: 1.31 cm LVIDs: 2.42 cm LVIDd: 3.5 cm LVPWd: 1.14 cm LAV (MOD-bp): 49.0 ml LVOT diam: 1.84 cm Ao root diam: 3.0 cm LA dimension: 2.9 cm Doppler Measurements & Calculations MV E max stepan: 58.7 cm/sec Med E/e': 9.9 MV A max stepan: 80.5 cm/sec Med Peak E' Stepan: 5.9 cm/sec MV E/A: 0.73 Lat E/e': 7.2 Lat Peak E' Stepan: 8.1 cm/sec Ao max P.4 mmHg Ao V2 max: 104.5 cm/sec Procedure The study was technically difficult with many images being suboptimal in quality. Left Ventricle The left ventricular size, thickness and function are normal. Ejection Fraction = 65%. The transmitr al spectral Doppler flow pattern is suggestive of impaired LV relaxation. Right Ventricle The right ventricle is normal in size and function. Atria Normal left and right atrial size and function. Mitral Valve The mitral valve is grossly normal. There is trace mitral regurgitation. Tricuspid Valve The tricuspid valve is normal. There is trace tricuspid regurgitation. Aortic Valve The aortic valve is normal in structure and function. Pulmonic Valve The pulmonic valve is not well visualized. Great Vessels The aortic root is normal size. Normal aortic arch, descending and ascending aorta. Pericardium/Pleura There is no pericardial effusion. Summary Statements The study was technically difficult with many images being suboptimal in quality. The left ventricular size, thickness and function are normal Ejection Fraction = 65%. The transmitral spectral Doppler flow pattern is suggestive of impaired LV relaxation. The right ventricle is normal in size and function. Normal left and right atrial size and function. The mitral valve is grossly normal. There is trace mitral regurgitation. The tricuspid valve is normal. There is trace tricuspid regurgitation. The aortic valve is normal in structure and function. The pulmonic valve is not well visualized. The aortic root is normal size. Normal aortic arch, descending and ascending aorta There is no pericardial effusion. [facility] 12/30/2019, 12:53 PM Ordering Physician: Ronaldo Gonzales Referring Physician: KATHERYN Performed By: Marii Bauer
--- NOTE | 2019-12-30 13:33 | PN ---
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, RN MANAGER - Note 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: Verbal, limited speech initiation and simple responses sec to CVA'S vs Eng as sec language. Flat affect..
[2019-12-30] MEDS: ATORVASTATIN CA 80 MG TABLET (FP) PO SCH (21:17)
[2019-12-31] MEDS: HEPARIN NA (PORCINE) 5,000 UNITS/ML 1ML VIAL SQ SCH ×2 (06:29→13:37)
[2019-12-31] MEDS: INSULIN SLIDING SCALE (NOVOLOG) 1 VIAL SQ SCH ×2 (06:29→11:48)
[2019-12-31] MEDS: INSULIN (LEVEMIR) 100 UNITS/ML UNITS SQ SCH (06:29)
[2019-12-31] MEDS ORDERED: INSULIN (LEVEMIR) 100 UNITS/ML UNITS SQ ONE (06:56)
[2019-12-31] MEDS ORDERED: INSULIN SLIDING SCALE (NOVOLOG) 1 VIAL SQ ONE (06:57)
--- NOTE | 2019-12-31 08:39 | PN ---
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 (short form) - Note 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: Neurology HISTORY OF PRESENT ILLNESS: Patient is a 64 y/o M with a significant past medical history of IDDM and HTN who presented to [facility] due to sudden onset extremity weakness. Patient endorses that yesterday afternoon (day prior to admission) he was waiting outside his home for a taxi. While waiting for the taxi, patient began to feel his legs become very weak; patient subsequently went back into his home. Later that night, patient could not get up from his bed to urinate and subsequently urinated on himself. Patient states he has never experienced these symptoms before. Endorses diffuse weakness in both of arms and legs as well as decreased sensation throughout his entire body. Denies facial droop, altered mental status, blurry vision, chest pain, shortness of breath, or syncope. Head CT completed, with no acute pathology. Carotid color flow doppler reviewed and demonstrated moderate intimal thickening in distal CCA up to bifurcation. Also, tiny plaques at CCA without significant stenosis,B/L. Echo with doppler ordered, yet to be completed. Total LDL 154, HDL 74, Cholesterol 250mg, triglycerides 127. Pt started on Aspirin 81mg, statin 80mg. Brain MRI completed, reviewed and discussed with patient in detail. imaging demonstrated multiple acute/subacute foci of infarctionalong the superior right ventricle and high frontal convexity. Not taking aspirin at home and I discussed with him the importance of taking an tiplatelet medication for CVA prevention. Excessively high LDL also concern and therefore receiving statin therapy. Carotid Dopplers also reviewed and showed moderate thickening with tiny plaques but no hemodynamically significant stenosis. No new neurologic issues, speech/swallow note reviewed. patient denies any new neurologic complaints this morning and reports otherwise being stable. Advised outpatient follow-up. Active Medications Acetaminophen (Tylenol -) 650 mg PO Q4H PRN PRN Reason: PAIN LEVEL 1-5 Last Admin: 12/28/19 14:10 Dose: 650 mg Documented by: Aspirin (Asa -) 81 mg PO DAILY [facility] Last Admin: 12/30/19 10:25 Dose: 81 mg Documented by: Atorvastatin Calcium (Lipitor -) 80 mg PO HS [facility] Last Admin: 12/30/19 21:17 Dose: 80 mg Documented by: Heparin Sodium (Porcine) (Heparin -) 5,000 unit SQ TID [facility] Last Admin: 07/08/20 06:29 Dose: 5,000 unit Documented by: Sodium Chloride (Normal Saline -) 1,000 mls @ 75 mls/hr IV ASDIR [facility] Last Admin: 12/30/19 10:25 Dose: Not Given Documented by: Insulin Aspart (Novolog Vial Sliding Scale -) 1 vial SQ ACHS [facility]; Protocol Last Admin: 12/31/19 06:29 Dose: 3 units Documented by: Insulin Detemir (Levemir Vial) 10 units SQ AM [facility] Last Admin: 12/31/19 06:29 Dose: 10 units Documented by: Metoprolol Tartrate (Lopressor -) 12.5 mg PO BID [facility] Last Admin: 12/30/19 21:13 Dose: 12.5 mg Documented by: Ramipril (Altace -) 2.5 mg PO DAILY [facility] Last Admin: 12/30/19 10:25 Dose: 2.5 mg Documented by: PHYSICAL EXAMINATION Vital Signs Period Temp Pulse Resp BP Sys/Llamas Pulse Ox Last 24 Hr 98 F-98.8 F 68-87 16-20 121-132/59-80 95-97 GENERAL: Awake, alert, and fully oriented, in no acute distress. HEAD: Normal with no signs of trauma. EYES: Pupils equal, round and reactive to light, extraocular movements intact, sclera anicteric, conjunctiva clear. No lid lag. EARS, NOSE, THROAT: Ears normal, nares patent, oropharynx clear without exudates. Moist mucous membranes. NECK: Normal range of motion, supple without lymphadenopathy, JVD, or masses. LUNGS: Breath sounds equal, clear to auscultation bilaterally. No wheezes, and no crackles. No accessory muscle use. HEART: Regular rate and rhythm, normal S1 and S2 without murmur, rub or gallop. ABDOMEN: Soft, nontender, not distended, normoactive bowel sounds, no guarding, no rebound, no masses. No hepatomegaly or splenomegaly. MUSCULOSKELETAL: Normal range of motion at all joints. No bony deformities or tenderness. No CVA tenderness. UPPER EXTREMITIES: 2+ pulses, warm, well-perfused. No cyanosis. No clubbing. No peripheral edema. LOWER EXTREMITIES: 2+ pulses, warm, well-perfused. No calf tenderness. No peripheral edema. NEUROLOGICAL: Cranial nerves II-XII intact. Finger to nose difficulty, moves all extremities equally, sensory intact, not pariticpating in confrontation testing PSYCHIATRIC: Cooperative. Good eye contact. Appropriate mood and affect. SKIN: Warm, dry, normal turgor, no rashes or lesions noted, normal capillary refill. CBCD WBC 8.8 K/mm3 (4.0-10.0) 12/28/19 06:20 RBC 4.61 M/mm3 (4.00-5.60) 12/28/19 06:20 Hgb 15.1 GM/dL (11.7-16.9) 12/28/19 06:20 Hct 45.9 % (35.4-49) 12/28/19 06:20 MCV 99.4 fl (80-96) H 12/28/19 06:20 MCHC 33.0 g/dl (32.0-35.9) 12/28/19 06:20 RDW 11.8 % (11.9-15.9) L 12/28/19 06:20 Plt Count 160 K/MM3 (134-434) 12/28/19 06:20 MPV 10.9 fl (7.5-11.1) 12/28/19 06:20 CMP Sodium 138 mmol/L (136-145) 12/28/19 06:20 Potassium 3.9 mmol/L (3.5-5.1) 12/28/19 06:20 Chloride 101 mmol/L (98-107) 12/28/19 06:20 Carbon Dioxide 25 mmol/L (21-32) 12/28/19 06:20 Anion Gap 12 MMOL/L (8-16) 12/28/19 06:20 BUN 11.3 mg/dL (7-18) 12/28/19 06:20 Creatinine 0.6 mg/dL (0.55-1.3) 12/28/19 06:20 Random Glucose 243 mg/dL (74-106) H 12/28/19 06:20 Calcium 9.2 mg/dL (8.5-10.1) 12/28/19 06:20 Total Bilirubin 1.1 mg/dL (0.2-1) H 12/28/19 06:20 AST 16 U/L (15-37) 12/28/19 06:20 ALT 20 U/L (13-61) 12/28/19 06:20 Alkaline Phosphatase 60 U/L (45-117) 12/28/19 06:20 Total Protein 7.0 g/dl (6.4-8.2) 12/28/19 06:20 Albumin 3.5 g/dl (3.4-5.0) 12/28/19 06:20 CARDIAC ENZYMES Creatine Kinase 191 U/L (26-308) 12/28/19 06:20 Troponin I < 0.02 ng/ml (0.00-0.05) 12/28/19 06:20 ASSESSMENT/PLAN: Patient is a 64 y/o M with a significant past medical history of IDDM and HTN who presented to [facility] due to sudden onset extremity weakness. Patient endorses that yesterday afternoon (day prior to admission) he was waiting outside his home for a taxi. While waiting for the taxi, patient began to feel his legs become very weak; patient subsequently went back into his home. Later that night, patient could not get up from his bed to urinate and subsequently urinated on himself. Patient states he has never experienced these symptoms before. Endorses diffuse weakness in both of arms and legs as well as decreased sensation throughout his entire body. Denies facial droop, altered mental status, blurry vision, chest pain, shortness of breath, or syncope. Head CT completed, with no acute pathology. Total LDL 154, HDL 74, Cholesterol 250mg, triglycerides 127. Pt started on Aspirin 81mg, statin 80mg. Brain MRI completed,reviewed and discussed with patient in detail. imaging demonstrated multiple acute/subacute foci of infarctionalong the superior right ventricle and high frontal convexity. Not taking aspirin at home and I discussed with him the importance of taking antiplatelet medication for CVA prevention. Excessively high LDL also concern and therefore receiving statin therapy. Carotid Dopplers also reviewed and showed moderate thickening with tiny plaques but no h emodynamically significant stenosis. physical therapy as tolerated, fall precautions, may benefit from short-term rehabilitation. Recheck LDL in 3 mons, consider reducing statin dosing if able. Ideally LDL <70. patient denies any new neurologic complaints this morning and reports otherwise being stable. Advised outpatient follow-up.
--- NOTE | 2019-12-31 09:58 | DS ---
Physical Examination Vital Signs: Vital Signs Temperature 98.3 F 12/31/19 06:00 Pulse Rate 68 12/31/19 06:00 Respiratory Rate 18 12/31/19 06:00 Blood Pressure 132/76 12/31/19 06:00 O2 Sat by Pulse Oximetry (%) 97 12/30/19 23:00 Cardiovascular: Yes: Regular Rate and Rhythm Respiratory: Yes: Regular, CTA Bilaterally Gastrointestinal: Yes: Normal Bowel Sounds, Soft Neurological: Yes: Alert, Oriented, Unsteady Gait Labs: CBC, BMP 12/28/19 06:20 12/28/19 06:20 Discharge Summary Problems reviewed: Yes Reason For Visit: CAREBROVASCULAR ACCIDENT (CVA) Current Active Problems Cerebrovascular accident (CVA) (Acute) Diabetes (Acute) HLD (hyperlipidemia) (Acute) Type 2 diabetes mellitus with diabetic neuropathic arthropathy (Acute) Hospital Course: - Problems (1) Cerebrovascular accident (CVA) Assessment/Plan: ct head negative mri results c/w acute and subacutecva asa statin neuro consult noted PT dc planning--snf pt refusing--dvc planning for home services for safe discharge Code(s): I63.9 - CEREBRAL INFARCTION, UNSPECIFIED Qualifiers: CVA mechanism: unspecified Qualified Code(s): I63.9 - Cerebral infarction, unspecified (2) Diabetes Assessment/Plan: poorly controlled bgm with ss while npo endo consult Code(s): E11.9 - TYPE 2 DIABETES MELLITUS WITHOUT COMPLICATIONS (3) HLD (hyperlipidemia) Assessment/Plan: continue with statin Code(s): E78.5 - HYPERLIPIDEMIA, UNSPECIFIED Condition: Stable - Instructions Referrals: Kevin Elizabeth MD [Primary Care Provider] - 1 Week - Home Medications Comprehensive Discharge Medication List: Ambulatory Orders Acetaminophen [Tylenol .Regular Strength -] 650 mg PO Q4H PRN tablet 12/31/19 Aspirin [ASA -] 81 mg PO DAILY #30 tab.chew 12/31/19 Atorvastatin Ca [Lipitor] 80 mg PO HS #30 tablet 12/31/19 Insulin (Levemir) [Levemir Vial] 10 units SQ AM #3 cartridge 12/31/19 Insulin Sliding Scale [Novolog Vial Sliding Scale -] 1 vial SQ ACHS units 12/31/19 Metoprolol Tartrate [Lopressor -] 12.5 mg PO BID #30 tablet 12/31/19 Ramipril [Altace] 2.5 mg PO DAILY #30 capsule 12/31/19
[2019-12-31] MEDS ORDERED: PT OWN MED DRAWER 7, Y5N ONE (10:19)
[2019-12-31 10:28] VITALS: PULSE 82
[2019-12-31] MEDS: ASPIRIN 81 MG CHEWABLE TABLETS PO SCH (10:29)
[2019-12-31] MEDS: METOPROLOL TARTRATE 25 MG TABLET (FP) PO SCH (10:29)
[2019-12-31] MEDS: RAMIPRIL 2.5 MG CAPSULE (FP) PO SCH (10:29)
[2019-12-31] MEDS: SODIUM CHLORIDE 1,000 ML IV SCH (10:29)
--- NOTE | 2019-12-31 11:19 | PN ---
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, Physician Chief Complaint: CVA History of Present Illness: This is a 64 year old man with a pmh OF htn, dm2, and verigo. He was admitted with acute onset left leg weakness and arm weakness RT>LT. Carotid Doppler 12/28/2019 showed moderate intimal thickening in the distal common carotid artery up to the bifurcation. Tiny plaques at the common carotid bifurcation without evidence of hemodynamically significant stenosis bilaterally. MRI 12/28/2019 Moderate atrophy, microvascular ischemia, multiple foci of acute/subacute infarcts in the right frontal lobe. Echocardiogram 12/30/2019: Normal LV function EF 65% Trace MR Trace TR 01/01/2020 Telem reviewed, NSR, no AFIB. . - Current Medication List Current Medications: Active Medications Acetaminophen (Tylenol -) 650 mg PO Q4H PRN PRN Reason: PAIN LEVEL 1-5 Last Admin: 12/28/19 14:10 Dose: 650 mg Documented by: Aspirin (Asa -) 81 mg PO DAILY [facility] Last Admin: 12/31/19 10:29 Dose: 81 mg Documented by: Atorvastatin Calcium (Lipitor -) 80 mg PO HS [facility] Last Admin: 12/30/19 21:17 Dose: 80 mg Documented by: Heparin Sodium (Porcine) (Heparin -) 5,000 unit SQ TID [facility] Last Admin: 12/31/19 06:29 Dose: 5,000 unit Documented by: Sodium Chloride (Normal Saline -) 1,000 mls @ 75 mls/hr IV ASDIR [facility] Last Admin: 12/31/19 10:29 Dose: Not Given Documented by: Insulin Aspart (Novolog Vial Sliding Scale -) 1 vial SQ ACHS [facility]; Protocol Last Admin: 12/31/19 06:29 Dose: 3 units Documented by: Insulin Detemir (Levemir Vial) 10 units SQ AM [facility] Last Admin: 12/31/19 06:29 Dose: 10 units Documented by: Metoprolol Tartrate (Lopressor -) 12.5 mg PO BID [facility] Last Admin: 12/31/19 10:29 Dose: 12.5 mg Documented by: Ramipril (Altace -) 2.5 mg PO DAILY [facility] Last Admin: 12/31/19 10:29 Dose: 2.5 mg Documented by: - Objective Vital Signs: Vital Signs Temperature 98.5 F 12/31/19 10:00 Pulse Rate 82 07/08/20 10:00 Respiratory Rate 18 12/31/19 10:00 Blood Pressure 140/60 12/31/19 10:00 O2 Sat by Pulse Oximetry (%) 97 12/30/19 23:00 Constitutional: Yes: No Distress Eyes: Yes: WNL HENT: Yes: WNL Neck: Yes: WNL Cardiovascular: Yes: Regular Rate and Rhythm, S1, S2 Respiratory: Yes: CTA Bilaterally Gastrointestinal: Yes: Soft Edema: No Labs: CBC, BMP 12/28/19 06:20 12/28/19 06:20 INR, PTT INR 1.01 (0.83-1.09) 12/28/19 06:20 Assessment/Plan 64 year old man with a pmh OF htn, dm2, and verigo. He was admitted with acute onset left leg weakness and arm weakness RT>LT. Carotid Doppler 12/28/2019 showed moderate intimal thickening in the distal common carotid artery up to the bifurcation. Tiny plaques at the common carotid bifurcation without evidence of hemodynamically significant stenosis bilaterally. MRI 12/28/2019 Moderate atrophy, microvascular ischemia, multiple foci of acute/subacute infarcts in the right frontal lobe. CVA Neurology Evaluation in progress Continue ASA 81 mg daily Agree with high intensity statin therapy BP controlled on metoprolol 12.5 mg PO BID and Ramipril 2.5 mg daily Echocardiogram Normal LV function, EF 65%, trace MR, trace TR 01/01/2020 Telem reviewed, NSR, no AFIB.
[2019-12-31] MEDS ORDERED: POLYETHYLENE GLYCOL 3350 119 GM BTL PO SCH (12:45)
[2019-12-31] MEDS ORDERED: BACITRACIN 15 GM TUBE TOPICAL OINTMENT TP SCH ×2 (13:00→22:00)
[2019-12-31 15:39] VITALS: BP 135/64; TEMP 98.2
== END 2019-12-31 15:48 | disposition home or self-care (01) | DRG 45 ==
LOC: JER 13:58 → JERBED 15:58 → J4S 19:22
PROVIDERS: ADMIT Family Medicine; ATTEND Family Medicine
DX: I63.9 Cerebral infarction, unspecified (principal); E11.65 Type 2 diabetes mellitus with hyperglycemia; E11.610 Type 2 diabetes mellitus with diabetic neuropathic arthropathy; E86.0 Dehydration; Z79.4 Long term (current) use of insulin; I10 Essential (primary) hypertension; F17.210 Nicotine dependence, cigarettes, uncomplicated; E78.5 Hyperlipidemia, unspecified
CPT/HCPCS: 36415; 70450-TC; 70551-TC; 80053; 80061; 81003; 82550; 82553; 82607; 82962; 83036; 83721; 83735; 84100; 84443; 84484; 85025; 85027; 85610; 85730; 86140; 87086; 90732; 93005; 93010; 93306-TC; 93880-TC; 97116-GP; 97161-GP; 99285-25; G0009; J1644; U0003

== ENCOUNTER 2020-04-05 10:57 | Inpatient (IN) | payer OTHER ==
--- NOTE | 2020-04-05 10:59 | PDOC ---
History of Present Illness - General Stated Complaint: POSSIBLE STROKE Time Seen by Provider: 04/05/20 10:59 - History of Present Illness Initial Comments: 04/05/20 10:59 HPI: This is a 64 y/o male with a PMH DM2, HLD, HTN, Smoker, CVA 12/27/19 (acute/subacute infarcts in R. frontal lobe) BIBA due left sided facial droop, weakness and numbness since last night before he went to sleep. The patient reports that his deficits from his last CVA were right sided, and that he had full use of his left side before last night. Normally ambulates with a cane at home. Patient is complaining of bilateral lower extremity pain, lightheadedness and R. shoulder pain. Denies chest pain, SOB, dizziness, fever, chills, nausea, and vomiting. His sister says the patient was okay until 3a.m. He then went to the bathroom and started complaining that his legs were bothering him. Stated that he couldn't move his left side. Patient normally has slurred speech at baseline, but sister says worse today. ROS: GENERAL/CONSTITUTIONAL: No fever/chills, diaphoresis, Yes left sided weakness HEENT: No change in vision. No ear pain. No sore throat. CARDIOVASCULAR: No chest pain, palpitations or peripheral edema RESPIRATORY: No shortness of breath, dyspnea with exertion, cough, wheezing, or hemoptysis. GASTROINTESTINAL: No abdominal pain, nausea, vomiting, diarrhea or constipation. GENITOURINARY: No dysuria, frequency, or change in urination. MUSCULOSKELETAL: R. shoulder pain SKIN: No rash or hives NEUROLOGIC: Yes headache, left sided weakness. Decreased sensation on left side. No LOC ENDOCRINE: No increased thirst. No unexplained weight loss. HEMATOLOGIC/LYMPHATIC: No anemia, easy bleeding, or history of blood clots. PMH: DM2, HLD, HTN, Smoker, CVA 12/27/19 PSx: Denied Social Hx: Admits tobacco Meds: See nurse note Allergies: See nurse note PE: GENERAL: Awake, alert, in no acute distress. Patient is answering question with one word answers or by shaking his finger. HEENT: Normocephalic, atraumatic. PERRLA, EOMI. No conjunctival pallor. Moist mucous membranes. NECK: Normal ROM and supple. No lymphadenopathy, JVD, or masses. CARDIOVASCULAR: Regular rate and rhythm, normal S1 and S2, no murmurs, rubs or gallops PULMONARY: No respiratory distress. Breath sounds equal, clear to auscultation bilaterally. No wheezes, rales or rhonchi. ABDOMEN: Soft, nontender, normoactive bowel sounds. No guarding, no rebound. No masses EXTREMITIES: Decreased ROM in left arm and leg. Patient is only able to move slightly against gravity. Patient is able to range right arm and leg. Strength 2/5 left arm and leg. 4/5 right arm and leg. No edema or erythema, no calf tenderness. No clubbing or cyanosis. NEUROLOGICAL: Cranial nerves II through XII not intact. Slurred speech. Left sided facial droop. SKIN: Warm, Dry, normal turgor, no rashes or lesions noted. Normal capillary refill. MDM: 04/05/20 11:32 This is a 64 y/o male with a PMH DM2, HLD, HTN, Smoker, CVA 12/27/19 (acute/subacute infarcts in R. frontal lobe) BIBA due left sided facial droop, weakness and numbness since last night before he went to sleep. - Unclear what baseline is and when symptoms started. Possibly 10pm last night vs 3am this morning. Outside of tPa window either way. - According to patient he did not have left sided residual weakness from previous CVA - Sister states that he has slurred speech at baseline however worse now - Patient is unable to speak or use left side of his body. Left sided facial droop. 04/05/20 12:03 CT IMPRESSION: Mild volume loss and mild to moderate periventricular chronic microvascular ischemic disease changes. Left medial thalamic chronic lacunar infarct again seen. No gross CT evidence of acute intracranial pathology is identified. Correlating to to determine further evaluation and follow-up. Case discussed with Dr. Hidalgo, emergency room caring resident. 04/05/20 12:13 -Previous CVA presented as bilateral generalized weakness. - Spoke with Dr. Bhatia who reports the patient never followed-up as an outpatient. Notes state that patient was moving all his extremities. - Spoke with Dr. Barrientos. Will consult and call back once CTA results. - Patient is now able to answer with one word or short sentences. He is beginning to move his left wrist and fingers and toes. 04/05/20 12:29 - Called radiology about read for Brain CTA Labs: - CBC WNL - Na 135 - K 7.8 will repeat because hemolyzed - Total cholesterol 236 - Total LDL 159 - HDL 71 04/05/20 13:31 - Patient is talking. Able to move his left arm and leg. Patietn states he is hungry. 04/05/20 13:33 - Patient to be admitted to stroke unit. Dr. Barrientos on board. NIH Stroke Scale - Last Known Well Date/Time & Onset Date Last Known Well: 04/04/20 Time Last Known Well: 20:00 - Initial Evaluation Level of consciousness: Alert Ask patient the month and their age: Answers one correctly (Did not know month) Ask patient to open & close eyes; make fist and let go: Obeys both correctly Best gaze (horizontal eye movement): Normal Visual field testing: No visual field loss Facial paresis (Show teeth/raise eyebrows/close eyes tight): Partial paralysis (total or near paralysis of lower face) Motor Function: Left Arm: Some effort against gravity Motor Function: Right Arm: Normal (extends arm 90 (or 45) degrees for 10 seconds without drift Motor Function: Left Leg: Some effort against gravity Motor Function: Right Leg: Normal (extends leg 30 degrees for 5 seconds without drift) Limb Ataxia: Present in two limbs (Left sided) Sensory(Use pinprick test arms,legs,trunk,face/side to side): Mild to moderate decrease in sensation (left side) Best language (Describe picture, name items, read sentences): No Aphasia (Unable to evaluate) Dysarthria (read several words): Mild to moderate slurring of words (Per Family) Extinction and Inattention: No abnormality - Total Score NIH Stroke Scale Score: 11 Past History - Medical History Allergies/Adverse Reactions: Allergies Allergy/AdvReac Type Severity Reaction Status Date / Time No Known Drug Allergies Allergy Mild Verified 04/05/20 11:04 Home Medications: Ambulatory Orders Aspirin [ASA -] 81 mg PO DAILY #30 tab.chew 12/31/19 Atorvastatin Ca [Lipitor] 80 mg PO HS #30 tablet 12/31/19 Insulin (Levemir) [Levemir Vial] 10 units SQ AM #3 cartridge 12/31/19 Insulin Sliding Scale [Novolog Vial Sliding Scale -] 1 vial SQ ACHS units 12/31/19 Metoprolol Tartrate [Lopressor -] 12.5 mg PO BID #30 tablet 12/31/19 Ramipril [Altace] 2.5 mg PO DAILY #30 capsule 12/31/19 Canagliflozin [Invokana] 100 mg PO DAILY 04/05/20 Anemia: No Asthma: Yes Cancer: No Cardiac Disorders: Yes COPD: No CHF: No Dementia: No Diabetes: Yes (iddm) GI Disorders: No Disorders: No HTN: Yes Hypercholesterolemia: Yes Liver Disease: No Seizures: No Thyroid Disease: No - Psycho-Social/Smoking History Smoking History: Current every day smoker Have you smoked in the past 12 months: Yes Number of Cigarettes Smoked Daily: 10 If you are a former smoker, when did you quit?: 3 days 'Breaking Loose' booklet given: 12/27/19 ED Treatment Course - LABORATORY CBC & Chemistry Diagram: 04/05/20 11:09 04/05/20 12:16 Discharge - Discharge Information Problems reviewed: Yes Clinical Impression/Diagnosis: Transient ischemic attack - Follow up/Referral - Patient Discharge Instructions - Post Discharge Activity
[2020-04-05] MEDS ORDERED: SODIUM CHLORIDE 1,000 ML IV SCH (11:15)
[2020-04-05 11:25] LABS: BASO % 0.4 % (0-2.0); EOS % 0.3 % (0-4.5); HEMATOCRIT 46.2 % (35.4-49); HEMOGLOBIN 15.9 GM/dL (11.7-16.9); LYMPH % 15.5 % (8-40); MCH 34.4 pg (25.7-33.7); MCHC 34.5 g/dl (32.0-35.9); MEAN CELL VOLUME 99.7 fl (80-96); MEAN PLT VOLUME 10.4 fl (7.5-11.1); MONO % 5.3 % (3.8-10.2); NEUT % 78.5 % (42.8-82.8); PLATELET COUNT 164 K/MM3 (134-434); RBC 4.63 M/mm3 (4.00-5.60); RDW 12.1 % (11.9-15.9); WHITE BLOOD COUNT 9.1 K/mm3 (4.0-10.0)
--- OUTSIDE RECORDS SUMMARY | 2020-04-05 11:32 | XMS ---
:1955 Author Organization [facility] Support Name Relationship Address Phone UE, UNEMPLOYED Unavailable Unavailable Unavailable UE Unavailable Unavailable Unavailable SHELL ORTIZ FRIEND [address] [place] [address] [place] [phone] Re-disclosure Warning The records that you are about to access may contain information from federally- assisted alcohol or drug abuse programs. If such information is present, then the following federally mandated warning applies: This information has been disclosed to you from records protected by federal confidentiality rules (42 CFR part 2). The federal rules prohibit you from making any further disclosure of this information unless further disclosure is expressly permitted by the written consent of the person to whom it pertains or as otherwise permitted by 42 CFR part 2. A general authorization for the release of medical or other information is NOT sufficient for this purpose. The Federal rules restrict any use of the information to criminally investigate or prosecute any alcohol or drug abuse patient.The records that you are about to access may contain highly sensitive health information, the redisclosure of which is protected by Article 27-F of the [facility] Public Health law. If you continue you may haveaccess to information: Regarding HIV / AIDS; Provided by facilities licensed or operated by the [facility] Office of Mental Health; or Provided by the [facility] Office for People With Developmental Disabilities. If such information is present, then the following [facility] mandated warning applies: This information has been disclosed to you from confidential records which are protected by state law. State law prohibits you from making any further disclosure of this information without the specific written consent of the person to whom it pertains, or as otherwise permitted by law. Any unauthorized further disclosure in violation of state law may result in a fine or prison sentence or both. A general authorization for the release of medical or other information is NOT sufficient authorization for further disclosure. Insurance Providers Payer name Policy type Policy ID Covered Covered republican's Policy P juan jose / Coverage republican ID relationship to Estrella Inf ormation type estrella AFFINITY [id number] SP [id number] 000 MEDICAID [id number] SP [id number] AFFINITY [id number] SP [id number] 000 Dental [id number] S [id number] 000 Dentaquest MKD [place] Vision [id number] S [id number] MKD Medicaid [id number] S [id number] Regular Clinic Visit [facility] [id number] S [id number] [place] Medicaid Results ID Date Data Source [id number] 12/27/2019 04:15:00 PM EDT [facility] Name Value Range Interpretation Description Data Sup porting Code Source(s) Document(s ) SARS [facility] coronavirus 2 RNA This lab was ordered by [facility] and reported by [facility]. Procedure
--- NOTE | 2020-04-05 11:37 | PDOC ---
Documentation entered by Madhavi Connor SCRIBE, acting as scribe for Pratik Willis MD. Pratik Willis MD: This documentation has been prepared by the Geeta martinez Xhesika, SCRIBE, under my direction and personally reviewed by me in its entirety. I confirm that the documentation accurately reflects all work, treatment, procedures, and medical decision making performed by me. Attending Attestation - Resident Resident Name: Aurora Hidalgo - ED Attending Attestation I have performed the following: I have examined & evaluated the patient, The case was reviewed & discussed with the resident, I agree w/resident's findings & plan, Exceptions are as noted - HPI HPI: 04/05/20 11:03 Patient is a 64 year old male with a significant past medical history of smoking (1Pack - days), insulin dependent diabetes, hypertension and previous CVA (December 2019, with baseline weakness- able to lift L arm against gravity) who presents to the ED with L sided weakness and tingling since 3AM. History is limited to to pt's clinical condition. Sister states the pt was fine up until 3am when he went to got to the bathroom and she noticed the pt was crying and complaining that his leg was bothering him and he was not able to move his L side. Sister states the pt normally has slurred speech but it has been worse today. Pt denies any headache, dizziness or chest pain prior to his incident. Pt reports feeling lightheaded and endorsing R shoulder pain. Pt ambulates with walker at baseline. The patient denies chest pain, shortness of breath, headache and dizziness. Denies fever, chills, cough, nausea, vomiting, diarrhea and constipation. Denies dysuria, frequency, urgency and hematuria. Allergies: NKDA - Physicial Exam PE: 04/05/20 11:14 GENERAL: The patient is awake, HEAD: Normocephalic, atraumatic. EYES: extraocular movements intact, sclera anicteric, conjunctiva clear. ENT: Normal voice, Moist mucous membranes. NECK: Normal range of motion, supple LUNGS: Breath sounds equal, clear to auscultation bilaterally. No wheezes, no rhonchi, no rales. HEART: Regular rate and rhythm, normal S1 and S2 without murmur, rub or gallop. ABDOMEN: Soft, nontender, No guarding, no rebound. No CVA tenderness EXTREMITIES: Normal range of motion, no edema. SKIN: Warm, Dry, normal turgor, NEURO: Mental status: The patient is oriented x3. Cranial nerves: Cranial nerves II through XII are intact Motor: slight hand movement L (unable to lift his L arm), RUE 5/5 strength, RLE/LLE no movement against gravity Sensation: Cerebellar: Gait: not assessed - Medical Decision Making 04/05/20 11:35 code burrell was initiated not TPA candidate, but onset sometime overnight new deficits BGM was normal CT obtained - no acute findings on CT head will dw neurology Heart Score/ECG Review - ECG Impressions Comment:: 04/05/20 11:52 Twelve-lead EKG was performed and reviewed by me. There is normal sinus rhythm with a normal rate. Rate of 81 PVCs present Normal axis Normal R wave progression Discharge - Follow up/Referral Referrals: Kvein Elizabeth MD [Primary Care Provider] - - Patient Discharge Instructions - Post Discharge Activity
[2020-04-05 11:41] LABS: ALBUMIN 3.5 g/dl (3.4-5.0); ALK PHOS 58 U/L (45-117); BILIRUBIN,TOTAL 0.7 mg/dL (0.2-1); BLOOD UREA NITROGEN 12.2 mg/dL (7-18); CALCIUM 8.7 mg/dL (8.5-10.1); CHLORIDE 103 mmol/L (98-107); CHOLESTEROL 236 mg/dL (50-200); CO2 29 mmol/L (21-32); CREATININE 0.8 mg/dL (0.55-1.3); GLUCOSE,RANDOM 276 mg/dL (74-106); HDL CHOLESTEROL 71 mg/dL (40-60); LDL CHOLESTEROL (ONLY SJRH) 159 mg/dL (5-100); SGOT/AST 101 U/L (15-37); SODIUM 135 mmol/L (136-145); TOT PROT 7.9 g/dl (6.4-8.2); TRIGLYCERIDES 128 mg/dL (0-150)
[2020-04-05 11:42] LABS: ANION GAP 3 MMOL/L (8-16); SGPT/ALT 30 U/L (13-61)
[2020-04-05 11:44] LABS: POTASSIUM 7.8 mmol/L (3.5-5.1)
[2020-04-05 13:10] LABS: BLOOD UREA NITROGEN 11.8 mg/dL (7-18); CALCIUM 8.7 mg/dL (8.5-10.1); CREATININE 0.7 mg/dL (0.55-1.3)
[2020-04-05 13:12] LABS: INR 1.04 (0.83-1.09); PROTHROMBIN TIME (PATIENT) 12.3 SEC (9.7-13.0)
[2020-04-05 13:14] LABS: ACTIVATED PTT 31.3 SECONDS (25.2-36.5)
[2020-04-05] MEDS ORDERED: ATORVASTATIN CA 80 MG TABLET (FP) PO ONE (13:58)
[2020-04-05] MEDS ORDERED: ASPIRIN 81 MG CHEWABLE TABLETS PO ONE (14:00)
[2020-04-05] MEDS ORDERED: ASPIRIN 81 MG CHEWABLE TABLETS ONE (14:28)
[2020-04-05] MEDS ORDERED: ATORVASTATIN CA 80 MG TABLET (FP) ONE (14:28)
--- OUTSIDE RECORDS SUMMARY | 2020-04-05 16:11 | XMS ---
:1955 Author Organization [facility] Support Name Relationship Address Phone UE, UNEMPLOYED Unavailable Unavailable Unavailable UE Unavailable Unavailable Unavailable SHELL ORTIZ FRIEND [address] [place] [address] [place] [phone] Re-disclosure Warning The records that you are [...] is protected by Article 27-F of the [facility] Public Health law. If you continue you may haveaccess to information: Regarding HIV / AIDS; Provided by facilities licensed or operated by the [facility] Office of Mental Health; or Provided by the [facility] Office for People With Developmental Disabilities. If such information is present, then the following [facility] mandated warning applies: This information has been [...] law may result in a fine or senior care sentence or both. A general authorization for the release of medical or other information is NOT sufficient authorization for further disclosure. Insurance Providers Payer name Policy type Policy ID Covered Covered alliance party's Policy P juan jose / Coverage alliance party ID relationship to Estrella Inf ormation type estrella AFFINITY [id number] SP [id number] 000 MEDICAID [id number] SP [id number] AFFINITY [id number] SP [id number] 000 Dental [id number] S [id number] 000 Dentaquest MKD [place] Vision [id number] S [id number] MKD Medicaid 4013 [id number] S [id number] 7C Regular Clinic Visit [facility] [id number] S [id number] [place] Medicaid Results ID Date Data Source [id number] 12/27/2019 04:15:00 PM EDT [facility] Name Value Range Interpretation Description Data Sup porting Code Source(s) Document(s ) SARS [facility] coronavirus 2 RNA This lab was ordered by [facility] and reported by [facility]. Procedure
--- NOTE | 2020-04-05 16:50 | CON.NEURO ---
Consult Consult Specialty:: [facility] Referred by:: ER Reason for Consultation:: Weakness - History of Present Illness History of Present Illness: this is a very pleasant 64-year-old right-handed man with multiple medical problem including history of High cholesterol Stroke December 2019 Hypertension Came in to the hospital with a chief complaint of weakness on the left side. Time of onset was not clear we 2 story is that this started last night first 3:00 this morning the emergency room call me at 145 pm patient was out of the window for thrombolysis. CAT scan of the head revealed no evidence of acute stroke. Back in December patient came in with bilateral leg weakness MRI was done which confirmed the presence of multiple lesions consistent with acute subacute stroke. In the emergency room patient had a CT angiogram of the head. 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 Cardio/Vascular: Yes: HTN Endocrine: Yes: Diabetes Mellitus - Alcohol/Substance Use Hx Alcohol Use: No - Smoking History Smoking history: Current every day smoker Have you smoked in the past 12 months: Yes Aproximately how many cigarettes per day: 10 If you are a former smoker, when did you quit?: 3 days - Social History ADL: Independent History of Recent Travel: No Home Medications - Allergies Allergies/Adverse Reactions: Allergies Allergy/AdvReac Type Severity Reaction Status Date / Time No Known Drug Allergies Allergy Mild Verified 04/05/20 11:04 - Home Medications Home Medications: Ambulatory Orders Aspirin [ASA -] 81 mg PO DAILY #30 tab.chew 12/31/19 Atorvastatin Ca [Lipitor] 80 mg PO HS #30 tablet 12/31/19 Insulin (Levemir) [Levemir Vial] 10 units SQ AM #3 cartridge 12/31/19 Insulin Sliding Scale [Novolog Vial Sliding Scale -] 1 vial SQ ACHS units 0 02/11 Metoprolol Tartrate [Lopressor -] 12.5 mg PO BID #30 tablet 12/31/19 Ramipril [Altace] 2.5 mg PO DAILY #30 capsule 12/31/19 Canagliflozin [Invokana] 100 mg PO DAILY 04/05/20 Family Medical History Family History: Unremarkable Review of Systems - Review of Systems Neurological: reports: Dizziness, Headache, Incoordination, Numbness Physical Exam-Neuro Vital Signs: Vital Signs Temperature 98.6 F 04/05/20 16:22 Pulse Rate 80 04/05/20 16:22 Respiratory Rate 17 04/05/20 16:22 Blood Pressure 134/76 04/05/20 16:22 O2 Sat by Pulse Oximetry (%) 99 04/05/20 16:22 Constitutional: Yes: Well Nourished Neck: Yes: WNL Cardiovascular: Yes: WNL Labs: CBC, BMP 04/05/20 11:09 04/05/20 12:16 INR, PTT INR 1.04 (0.83-1.09) 04/05/20 11:09 - Neuro Exam Level Of Consciousness: Yes: Oriented to Person, Oriented to Place, Oriented to Time, Obtunded Speech: Garbled Dominant Hand: Left Cranial Nerves II-XII Intact: No Gag: Present DTR's: 1+ Left Bicep, 1+ Right Bicep, 1+ Left Tricep, 1+ Right Tricep Response to light touch: Normal Response to pain prick: Normal Response to temperature: Normal Motor Strength: 3/5: Left Arm, Left Leg, 4/5: Right Arm, Right Leg Gait: Deferred Imaging - Results Cat Scan: Image Reviewed MRI: Image Reviewed Problem List - Problems (1) Cerebrovascular accident (CVA) Code(s): I63.9 - CEREBRAL INFARCTION, UNSPECIFIED (2) Diabetes Code(s): E11.9 - TYPE 2 DIABETES MELLITUS WITHOUT COMPLICATIONS (3) Hyperglycemia Code(s): R73.9 - HYPERGLYCEMIA, UNSPECIFIED (4) Type 2 diabetes mellitus with diabetic neuropathic arthropathy Code(s): E11.610 - TYPE 2 DIABETES MELLITUS W DIABETIC NEUROPATHIC ARTHROPATHY Qualifiers: (5) Vertigo Code(s): R42 - DIZZINESS AND GIDDINESS Assessment/Plan presentation with the weakness that could be exacerbation of old stroke. Neuropathy associated with diabetes. Stroke prevention. 1. Tight blood pressure control. 2. Tight blood sugar control. 3. Add Plavix. 4. Continue the baby aspirin. 5. Homocystine level. 7. Suggest EEG to rule out embolic source. 8. Holter monitor. 9. SCDs. 10. Physical therapy. 11. Fall precautions. 12. Continue statin Humphrey Rajput M.D. [phone]
[2020-04-05 18:56] VITALS: BMI 25.0
[2020-04-06] MEDS ORDERED: ACETAMINOPHEN 1000 MG/100 ML VIAL (NON FORMULARY) IVPB ONE (06:06)
--- NOTE | 2020-04-06 06:18 | PN ---
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 (short form) - Note 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: Episodic Note: 04/06/2020@ 6am Called by nurse patient reporting he cannot move left arm and leg which is not a new finding since admission and now reports leg pain which is new. Chart reviewed. Seen by Neurology yesterday. CT scan of head negative. Patient was seen and examined at bedside. On my exam there is no movement of left arm and leg. He reports having leg pain upon questioning. Will give IV Ofirmev for pain. MRI of brain ordered. Continue with neuro checks q4 hr. Madison Zamudio N.P. Visit type - Emergency Visit Emergency Visit: Yes ED Registration Date: 04/05/20 Care time: The patient presented to the Emergency Department on the above date and was hospitalized for further evaluation of their emergent condition. - New Patient This patient is new to me today: Yes Date on this admission: 04/06/20 - Critical Care Critical Care patient: No - Discharge Referral Referred to [facility] Med P.C.: No
[2020-04-06] MEDS: INSULIN SLIDING SCALE (NOVOLOG) 1 VIAL SQ SCH ×4 (06:27→21:40)
--- NOTE | 2020-04-06 07:32 | HP ---
Admitting History and Physical - Admission History of Present Illness: 64 year old male with a significant past medical history of smoking (1Pack - days), insulin dependent diabetes, hypertension and previous CVA (December 2019, with baseline weakness- able to lift L arm against gravity) who presents to the ED with L sided weakness and tingling since 3AM. History is limited to to pt's clinical condition. Sister states the pt was fine up until 3am when he went to got to the bathroom and she noticed the pt was crying and complaining that his leg was bothering him and he was not able to move his L side. Sister states the pt normally has slurred speech but it has been worse today. Pt denies any headache, dizziness or chest pain prior to his incident. Pt reports feeling lightheaded and endorsing R shoulder pain. Pt ambulates with walker at baseline. 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 Cardiovascular: Yes: HTN, Hyperlipdemia Endocrine: Yes: Diabetes Mellitus - Smoking History Smoking history: Current every day smoker Have you smoked in the past 12 months: Yes Aproximately how many cigarettes per day: 10 If you are a former smoker, when did you quit?: 3 days - Alcohol/Substance Use Hx Alcohol Use: No - Social History ADL: Independent History of Recent Travel: No Home Medications - Allergies Allergies/Adverse Reactions: Allergies Allergy/AdvReac Type Severity Reaction Status Date / Time No Known Drug Allergies Allergy Mild Verified 04/05/20 11:04 - Home Medications Home Medications: Ambulatory Orders Aspirin [ASA -] 81 mg PO DAILY #30 tab.chew 12/31/19 Atorvastatin Ca [Lipitor] 80 mg PO HS #30 tablet 12/31/19 Insulin (Levemir) [Levemir Vial] 10 units SQ AM #3 cartridge 12/31/19 Insulin Sliding Scale [Novolog Vial Sliding Scale -] 1 vial SQ ACHS units 12/31/19 Metoprolol Tartrate [Lopressor -] 12.5 mg PO BID #30 tablet 12/31/19 Ramipril [Altace] 2.5 mg PO DAILY #30 capsule 12/31/19 Canagliflozin [Invokana] 100 mg PO DAILY 04/05/20 Family Medical History Family History: Unremarkable Review of Systems - Review of Systems Constitutional: reports: Weakness Cardiovascular: denies: Chest Pain, Palpitations Gastrointestinal: denies: Abdominal Pain Neurological: reports: Pre-Existing Deficit, Unsteady Gait, Weakness (left side) Physical Examination Vital Signs: Vital Signs Temperature 97.8 F 04/06/20 06:00 Pulse Rate 75 04/06/20 06:00 Respiratory Rate 20 04/06/20 06:00 Blood Pressure 136/77 04/06/20 06:00 O2 Sat by Pulse Oximetry (%) 95 04/06/20 06:00 Cardiovascular: Yes: Regular Rate and Rhythm Respiratory: Yes: Regular, CTA Bilaterally Gastrointestinal: Yes: Normal Bowel Sounds, Soft. No: Tenderness Edema: No Neurological: Yes: Alert, Oriented, Weakness (left side) Labs: CBC, BMP 04/05/20 11:09 04/05/20 12:16 Imaging - Results Cat Scan: Report Reviewed Problem List - Problems (1) Cerebrovascular accident (CVA) Assessment/Plan: Neuro consult appreciated on asa/plavix/statin resume b-blockers cardio consult Code(s): I63.9 - CEREBRAL INFARCTION, UNSPECIFIED (2) Diabetes Assessment/Plan: bgm Code(s): E11.9 - TYPE 2 DIABETES MELLITUS WITHOUT COMPLICATIONS (3) HLD (hyperlipidemia) Assessment/Plan: on lipitor 80 Abnormal Lab Results 04/05/20 04/05/20 04/05/20 11:09 11:09 12:16 MCV 99.7 H MCH 34.4 H Sodium 135 L Potassium 7.8 H* 5 Anion Gap 3 L 5 L Random Glucose 276 H 265 H AST 101 H Cholesterol 236 H Total LDL Cholesterol 159 H HDL Cholesterol 71 H Code(s): E78.5 - HYPERLIPIDEMIA, UNSPECIFIED
[2020-04-06] MEDS: CLOPIDOGREL BISULFATE 75 MG TABLET (FP) PO SCH (09:02)
[2020-04-06] MEDS: ASPIRIN 81 MG CHEWABLE TABLETS PO SCH (09:02)
[2020-04-06] MEDS: METOPROLOL TARTRATE 25 MG TABLET (FP) PO SCH ×2 (09:02→21:38)
--- NOTE | 2020-04-06 10:09 | EKG ---
Test Reason : Blood Pressure : / mmHG Vent. Rate : 081 BPM Atrial Rate : 081 BPM P-R Int : 148 ms QRS Dur : 082 ms QT Int : 386 ms P-R-T Axes : 062 033 066 degrees QTc Int : 448 ms SINUS RHYTHM WITH OCCASIONAL PREMATURE VENTRICULAR COMPLEXES OTHERWISE NORMAL ECG WHEN COMPARED WITH ECG OF 28-DEC-2019 14:21, PREMATURE VENTRICULAR COMPLEXES ARE NOW PRESENT Confirmed by MD Eugenio, Dano ([id number]) on 04/06/2020 10:08:38 AM Referred By: Confirmed By:Dano Becker MD
--- NOTE | 2020-04-06 10:16 | CONSULT ---
Admitting History and Physical - Admission History of Present Illness: 64 year old male with a significant past medical history of smoking (1Pack - days), insulin dependent diabetes, hypertension and previous CVA (December 2019, with baseline weakness- able to lift L arm against gravity) who presents to the ED with L sided weakness and tingling, increased slurred speech CT head (-) MRI pending Selected Entries 04/06/20 04/06/20 04/06/20 01:44 06:00 09:03 Temperature 98.6 F 97.8 F 98.2 F Pulse Rate 74 75 85 Blood Pressure 136/76 136/77 145/87 O2 Sat by Pulse 95 95 98 Oximetry (%) Laboratory Tests 04/05/20 04/05/20 11:09 14:49 WBC 9.1 COVID-19 ([facility]) Not detected Reg diet/tin liquids ordered. Known to me from December 2019 admission-Verbal, limited speech initiation and simple responses sec to CVA'S vs Eng as sec language. 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 Cardiovascular: Yes: HTN, Hyperlipdemia Endocrine: Yes: Diabetes Mellitus - Smoking History Smoking history: Current every day smoker Have you smoked in the past 12 months: Yes Aproximately how many cigarettes per day: 10 If you are a former smoker, when did you quit?: 3 days - Alcohol/Substance Use Hx Alcohol Use: No - Social History ADL: Independent History of Recent Travel: No History - Admission Reason For Visit: UNILATERAL WEAKNESS; HYPERLIPIDEMIA - Diagnostics X-ray: Report Reviewed CT Scan: Report Reviewed MRI: Pending - General Mental Status: Alert and Oriented, Awake and Alert, Able to Follow Commands Attention: Intact Ability to Follow Directions: Good Head/Neck Control: Good - Hearing Hearing: Normal Hearing Aide: No With Patient: No Speech Evaluation - Communication Primary Language: ZAMBIAN Communication: Yes: Simple Responses, Language Barrier - Speech Production Able to Make Needs Known: Yes: Mildly Impaired Intelligibility: Yes: WNL - Speech Characteristics Voice Loudness: Normal Voice Pitch: Yes: Normal Voice Phonatory-based Quality: Yes: Normal Speech Pattern: Normal Nasal Resonance: Normal - Language/Auditory Comprehension Follows: Yes: 1 Stage Simple Commands Observation: Comprehends Conversational Speech: Yes - Language/Verbal Expression Able to Communicate Wants and Needs: Yes: Mildly Impaired - Swallow Evaluation/Bedside Assessment Current Nutritional Intake: Regular, Thin Liquids Oral Secretions: Yes: WFL Dentition: Yes: Edentulous Facial Symmetry at Rest: Symmetrical Facial Symmetry on Retraction: Symmetrical Facial Movement: Controlled Against Resistance Opening: Normal Against Resistance Closing: Normal Pucker Lips: Normal Smile: Normal Lingual Movement: Normal, Symmetric Lingual Speed of Movement: Normal Lingual Movement Strgth Against Opposition: Normal Lingual Movement Characteristics: Normal Laryngeal Elevation: WFL Laryngeal Movement: Able to Palpate Rate of Intake: WFL Bolus Size: WFL Labial Seal: WFL Chewing: WFL Oral Prep Time: WFL A-P Transit: WFL Timing of Swallow: WFL Coughing/Throat Clear: No Change in Voice: No Recommendations - Speech Evaluation, Impression/Plan Impression: Left side weakness. Speaks Cook Islander/some Vietnamese. Cognitively/language/speech improving since December. Swallowing intact. May be able to benefit from acute rehabilitation at this time. - Disposition Discharge to: Rehabilitation Center - Dysphagia Impressions/Plan Swallowing Skills: WF Dysphagia Impressions: No Impairment *Silent aspiration: cannot be R/O at bedside Dysphagia Treatment Plan: Elevate HOB during feed Recommendations: Other (Rehab/PT) - Recommendations Diet Consistency: Regular Medication Administration: Whole with water Liquids: Thin Liquids
--- NOTE | 2020-04-06 11:54 | CON.CARD ---
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 He presented to the ED with left sided weakness, found by his sister who found him in the bathroom unable to move his left side. At baseline he slurs his speech but the slurring became more pronounced. CAT scan of the head revealed no evidence of acute stroke. Past Studies: MRI 12/28/2019 Moderate atrophy, microvascular ischemia, multiple foci of acute/subacute infarcts in the right frontal lobe. Carotid Doppler 12/28/2019 showed moderate intimal thickening in the distal common carotid artery up to the bifurcation. Tiny plaques at the common carotid bifurcation without evidence of hemodynamically significant stenosis bilaterally. 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 Cardio/Vascular: Yes: HTN, Hyperlipdemia Endocrine: Yes: Diabetes Mellitus - Alcohol/Substance Use Hx Alcohol Use: No - Smoking History Smoking history: Current every day smoker Have you smoked in the past 12 months: Yes Aproximately how many cigarettes per day: 10 If you are a former smoker, when did you quit?: 3 days - Social History ADL: Independent History of Recent Travel: No Home Medications - Allergies Allergies/Adverse Reactions: Allergies Allergy/AdvReac Type Severity Reaction Status Date / Time No Known Drug Allergies Allergy Mild Verified 04/05/20 11:04 - Home Medications Home Medications: Ambulatory Orders Aspirin [ASA -] 81 mg PO DAILY #30 tab.chew 12/31/19 Atorvastatin Ca [Lipitor] 80 mg PO HS #30 tablet 12/31/19 Insulin (Levemir) [Levemir Vial] 10 units SQ AM #3 cartridge 12/31/19 Insulin Sliding Scale [Novolog Vial Sliding Scale -] 1 vial SQ ACHS units 12/31/19 Metoprolol Tartrate [Lopressor -] 12.5 mg PO BID #30 tablet 12/31/19 Ramipril [Altace] 2.5 mg PO DAILY #30 capsule 12/31/19 Canagliflozin [Invokana] 100 mg PO DAILY 04/05/20 Family Medical History Family History: Unremarkable Vital Signs: Vital Signs Temperature 98.2 F 04/06/20 09:03 Pulse Rate 85 10/13/20 09:03 Respiratory Rate 20 04/06/20 09:03 Blood Pressure 145/87 04/06/20 09:03 O2 Sat by Pulse Oximetry (%) 98 04/06/20 09:03 Constitutional: Yes: No Distress Eyes: Yes: WNL HENT: Yes: WNL Neck: Yes: WNL Respiratory: Yes: CTA Bilaterally Gastrointestinal: Yes: Soft Cardiovascular: Yes: Regular Rate and Rhythm Heart Sounds: Yes: S1, S2 Edema: No Neurological: Yes: Alert (Left sided weakness) - Other Data Labs, Other Data: CBC, BMP 04/05/20 11:09 04/05/20 12:16 INR, PTT INR 1.04 (0.83-1.09) 04/05/20 11:09 Assessment/Plan 64 year old male with a PMH of HTN, DM, smoking, past CVA (December 2019 with residual weakness), and vertigo. He presented to the ED with left sided weakness, found by his sister who found him in the bathroom unable to move his left side. At baseline he slurs his speech but the slurring became more pronounced. CAT scan of the head revealed no evidence of acute stroke. Past Studies: MRI 12/28/2019 Moderate atrophy, microvascular ischemia, multiple foci of acute/subacute infarcts in the right frontal lobe. Carotid Doppler 12/28/2019 showed moderate intimal thickening in the distal common carotid artery up to the bifurcation. Tiny plaques at the common carotid bifurcation without evidence of hemodynamically significant stenosis bilaterally. Echocardiogram 12/30/2019: Normal LV function EF 65% Trace MR Trace TR EKG NSR with occasional VPC's, normal intervals, normal axis, and NSSTW changes Troponin negative x2 Recommendations: -Agree with adding Plavix 75 mg daily to his medical regimen and continue and continuing aspirin 81 mg daily -LDL 159, on Atorvastatin 80 mg daily. Would add Ezetimide 10 mg daily and try to drive LDL to below 70. -Would favor placing an ILR to rule out AFIB, will ask Dr. Edmar Hinson to consider placing one. -Continue Metoprolol Tartrate 12.5 mg PO BID
--- NOTE | 2020-04-06 12:40 | CON.NEP ---
Consult Consult Specialty:: Nephrology Referred by:: Dr. Zarate Reason for Consultation:: Hyperkalemia - History of Present Illness Chief Complaint: Left side weakness History of Present Illness: This is a 64 year old male with history of IDDM, CVA, and hypertension who presented from home with left side weakness and admitted for r/o CVA and noted to have hyperkalemia. Seen and examined at the bedside. He reports alda nued left side weakness. No chest pain, shortness of breath, fever, chills, N/V/D. He is making urine w/o difficultly. No flank pain. K was noted to be hemolyized. 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 Cardio/Vascular: Yes: HTN, Hyperlipdemia Endocrine: Yes: Diabetes Mellitus - Alcohol/Substance Use Hx Alcohol Use: No - Smoking History Smoking history: Current every day smoker Have you smoked in the past 12 months: Yes Aproximately how many cigarettes per day: 10 If you are a former smoker, when did you quit?: 3 days - Social History ADL: Independent History of Recent Travel: No Home Medications - Allergies Allergies/Adverse Reactions: Allergies Allergy/AdvReac Type Severity Reaction Status Date / Time No Known Drug Allergies Allergy Mild Verified 04/05/20 11:04 - Home Medications Home Medications: Ambulatory Orders Aspirin [ASA -] 81 mg PO DAILY #30 tab.chew 12/31/19 Atorvastatin Ca [Lipitor] 80 mg PO HS #30 tablet 12/31/19 Insulin (Levemir) [Levemir Vial] 10 units SQ AM #3 cartridge 12/31/19 Insulin Sliding Scale [Novolog Vial Sliding Scale -] 1 vial SQ ACHS units 12/31/19 Metoprolol Tartrate [Lopressor -] 12.5 mg PO BID #30 tablet 12/31/19 Ramipril [Altace] 2.5 mg PO DAILY #30 capsule 12/31/19 Canagliflozin [Invokana] 100 mg PO DAILY 04/05/20 Family Medical History Family History: Unremarkable Review of Systems - Review of Systems Constitutional: reports: Weakness Eyes: reports: No Symptoms HENT: reports: No Symptoms Neck: reports: No Symptoms Cardiovascular: reports: No Symptoms Respiratory: reports: No Symptoms Gastrointestinal: reports: No Symptoms Genitourinary: reports: No Symptoms Breasts: reports: No Symptoms Reported Musculoskeletal: reports: No Symptoms Neurological: reports: Numbness, Weakness Nephrology Consult - Height Height: 6 ft - Weight Weight: 83.915 kg - BMI Body Mass Index (BMI): 25.0 - Lab Results CBC,BMP: CBC, BMP 04/05/20 11:09 04/05/20 12:16 Anion Gap: Anion Gap Anion Gap 5 MMOL/L (8-16) L 04/05/20 12:16 - Physical Examination Vital Signs: Vital Signs Temperature 98.2 F 04/06/20 09:03 Pulse Rate 85 04/06/20 09:03 Respiratory Rate 20 04/06/20 09:03 Blood Pressure 145/87 04/06/20 09:03 O2 Sat by Pulse Oximetry (%) 98 04/06/20 09:03 Constitutional: Yes: No Distress Eyes: Yes: Conjunctiva Clear Cardiovascular: Yes: Regular Rate and Rhythm Respiratory: Yes: Regular Gastrointestinal: Yes: Soft. No: Tenderness Extremities: No: Cyanosis Edema: No Neurological: Yes: Weakness Assessment/Plan 64 year old male with history of IDDM, CVA, and hypertension who presented from home with left side weakness and admitted for r/o CVA and noted to have hyperkalemia. 1. Pseudohyperkalemia in setting of hemolysis 2. Left side weakness r/o CVA 3. IDDM 4. Hypertension Check repeat BMP and plasma potassium this afternoon If K is > 5.5 would change diet to low potassium diet Continue work up as per neurology, awaiting MRI/MRA BP control as per neurology recommendations. Thank you Gurinder Murcia DO
--- NOTE | 2020-04-06 15:42 | CONSULT ---
Consult Consult Specialty:: Physiatry consult Dr Augustin for Dr Pierre - History of Present Illness Chief Complaint: LLE pain History of Present Illness: This is a 64 year old man with a medical history of CVA 12/2019 with L HP, vertigo, HTN, active smoker, IDDM, who presented to the ED 04/05/2020 with worsening L weakness and tingling since earlier that day. CT head 04/05/2020 shows chronic L medial lacunar infarct without acute pathology. Neurology was consulted, who felt his symptoms were an exacerbation of the prior CVA. Cards and Renal were consulted as well. He was not yet seen by PT. Physiatry was consulted for further recommendations. 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 Cardio/Vascular: Yes: HTN, Hyperlipdemia Endocrine: Yes: Diabetes Mellitus - Alcohol/Substance Use Hx Alcohol Use: No - Smoking History Smoking history: Current every day smoker Have you smoked in the past 12 months: Yes Aproximately how many cigarettes per day: 10 If you are a former smoker, when did you quit?: 3 days - Social History ADL: Independent History of Recent Travel: No Home Medications - Allergies Allergies/Adverse Reactions: Allergies Allergy/AdvReac Type Severity Reaction Status Date / Time No Known Drug Allergies Allergy Mild Verified 04/05/20 11:04 - Home Medications Home Medications: Ambulatory Orders Aspirin [ASA -] 81 mg PO DAILY #30 tab.chew 12/31/19 Atorvastatin Ca [Lipitor] 80 mg PO HS #30 tablet 12/31/19 Insulin (Levemir) [Levemir Vial] 10 units SQ AM #3 cartridge 12/31/19 Insulin Sliding Scale [Novolog Vial Sliding Scale -] 1 vial SQ ACHS units 12/31/19 Metoprolol Tartrate [Lopressor -] 12.5 mg PO BID #30 tablet 12/31/19 Ramipril [Altace] 2.5 mg PO DAILY #30 capsule 12/31/19 Canagliflozin [Invokana] 100 mg PO DAILY 04/05/20 Family Medical History Family History: Unremarkable Review of Systems Findings/Remarks: Notes LLE pain, otherwise denies fevers, ear/ eye pain, CP, SOB, abdominal pain, dysuria, paresthesias or LUE/ LBP. Physical Exam Vital Signs: Vital Signs Temperature 98.5 F 04/06/20 14:00 Pulse Rate 76 04/06/20 14:00 Respiratory Rate 16 04/06/20 14:00 Blood Pressure 135/80 04/06/20 14:00 O2 Sat by Pulse Oximetry (%) 98 04/06/20 09:03 Musculoskeletal: Yes: Other (General: calm HM sitting in bed NAD, awake and alert; R shoulder flexion to 130 degrees, grossly 5-/5 RUE/ RLE and 0/5 LUE/ LLE with L shoulder passive flexion to 110 degrees and L elbow extension to 10 degrees, full L HF/ KF and L HF to 10 degrees and L KE to 25 degrees with improvement in his pain) Labs: CBC, BMP 04/05/20 11:09 04/05/20 12:16 Imaging - Results Cat Scan: Report Reviewed (as per HPI) Assessment/Plan Impression: 1) Deficits mobility/ ADLs 2) Deconditioning 3) Gait abnormality 4) CVA 12/2019 with L HP with 04/05/2020 progressive weakness 5) hx vertigo 6) HTN, HLD 7) Active smoker 8) IDDM 9) Overweight 10) No documented flu shot/ pneumovax 11) HyperK, improving Recommendations: 1) PT for stretching strengthening ROM and functional mobility 2) Falls, safety precautions 3) Cardiac, diabetic precautions 4) Ice/ heat LLE prn stretching 5) DVT ppx: ASA/ Plavix 6) Skin protection: float heels, q2 hour turning 7) Monitor BMP given electrolyte abnormalities 8) Nutrition consult for overweight 9) Continue plan per primary team 10) Discharge planning: to be determined once medically stable, but may need course inpatient rehabilitation if weakness persists Thank you for this referral.
[2020-04-06] MEDS: ATORVASTATIN CA 80 MG TABLET (FP) PO SCH (21:38)
--- NOTE | 2020-04-06 22:47 | CON.CARD ---
Consult Consult Specialty:: Cardiac Electrophysiology Referred by:: Dr. Becker Reason for Consultation:: CVA - History of Present Illness Chief Complaint: weakness History of Present Illness: Mr. Lundy is a 64 year old male with a pmh of HTN, DM, smoking, past CVA (December 2019 with residual weakness), and vertigo who presented after being found on the floor with left sided weakness and worsening slurred speech. EPS consultation requested by cardiology for consideration for ILR. Telemetry has been unremarkable. Denies chest pain, dyspnea, palpitations, near or true syncope. Past Studies: MRI 12/28/2019 Moderate atrophy, microvascular ischemia, multiple foci of acute/subacute infarcts in the right frontal lobe. Carotid Doppler 12/28/2019 showed moderate intimal thickening in the distal common carotid artery up to the bifurcation. Tiny plaques at the common carotid bifurcation without evidence of hemodynamically significant stenosis bilaterally. 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 Cardio/Vascular: Yes: HTN, Hyperlipdemia Endocrine: Yes: Diabetes Mellitus - Alcohol/Substance Use Hx Alcohol Use: No - Smoking History Smoking history: Current every day smoker Have you smoked in the past 12 months: Yes Aproximately how many cigarettes per day: 10 If you are a former smoker, when did you quit?: 3 days - Social History ADL: Independent History of Recent Travel: No Home Medications - Allergies Allergies/Adverse Reactions: Allergies Allergy/AdvReac Type Severity Reaction Status Date / Time No Known Drug Allergies Allergy Mild Verified 04/05/20 11:04 - Home Medications Home Medications: Ambulatory Orders Aspirin [ASA -] 81 mg PO DAILY #30 tab.chew 12/31/19 Atorvastatin Ca [Lipitor] 80 mg PO HS #30 tablet 12/31/19 Insulin (Levemir) [Levemir Vial] 10 units SQ AM #3 cartridge 12/31/19 Insulin Sliding Scale [Novolog Vial Sliding Scale -] 1 vial SQ ACHS units 12/31/19 Metoprolol Tartrate [Lopressor -] 12.5 mg PO BID #30 tablet 12/31/19 Ramipril [Altace] 2.5 mg PO DAILY #30 capsule 12/31/19 Canagliflozin [Invokana] 100 mg PO DAILY 04/05/20 Family Medical History Family History: Unremarkable Review of Systems - Review of Systems Constitutional: reports: Weakness. denies: Fever Neck: denies: Pain on Movement Cardiovascular: denies: Chest Pain, Edema, Palpitations, Shortness of Breath Respiratory: denies: SOB on Exertion Gastrointestinal: denies: Abdominal Pain, Nausea, Vomiting Musculoskeletal: reports: Muscle Weakness Neurological: reports: Change in Speech, Weakness Vital Signs: Vital Signs Temperature 98.3 F 04/06/20 18:00 Pulse Rate 94 H 04/06/20 18:00 Respiratory Rate 18 04/06/20 18:00 Blood Pressure 160/82 04/06/20 18:00 O2 Sat by Pulse Oximetry (%) 97 04/06/20 18:00 Constitutional: Yes: Well Nourished, No Distress, Calm Eyes: Yes: EOM Intact Neck: Yes: Supple Respiratory: Yes: Regular, CTA Bilaterally Gastrointestinal: Yes: Normal Bowel Sounds, Soft Cardiovascular: Yes: Regular Rate and Rhythm Edema: No Neurological: Yes: Alert, Oriented, Dysarthria, Facial Droop, Weakness - Other Data Labs, Other Data: CBC, BMP 04/05/20 11:09 04/05/20 12:16 INR, PTT INR 1.04 (0.83-1.09) 04/05/20 11:09 Echo: Report Reviewed Ejection Fraction %: LVEF > or = 40 % Imaging - Results EKG: Image Reviewed Problem List - Problems (1) Cerebrovascular accident (CVA) Code(s): I63.9 - CEREBRAL INFARCTION, UNSPECIFIED (2) HLD (hyperlipidemia) Code(s): E78.5 - HYPERLIPIDEMIA, UNSPECIFIED (3) HTN (hypertension) Code(s): I10 - ESSENTIAL (PRIMARY) HYPERTENSION (4) PVC's (premature ventricular contractions) Code(s): I49.3 - VENTRICULAR PREMATURE DEPOLARIZATION Assessment/Plan normal LVEF. CVA x 2. telemetry unremarkable. requested for consideration for ILR to r/o underlying dysarrhythmia as contributing factor to recurrent cva. if he does in fact have afib/afl, then his [id number] score would be atleast 4 and would be indicated for a/c. extensive conversation with the patient, and his and nephew over the phone. pt is agreeable for ILR implant for further evaluation but wishes to pursue only as outpt. agreeable for arrangement post discharge. r/b/a discussed at length, pt expressed understanding. all questions answered. - keep k 4-4.5 mg 2-2.5 - will arrange for ILR implant as outpt - care as per cardiology, primary services Thank you for allowing me to participate in the care of this patient. Please call with any questions.
[2020-04-07] MEDS ORDERED: ACETAMINOPHEN 1000 MG/100 ML VIAL (NON FORMULARY) IVPB ONE (02:23)
[2020-04-07] MEDS: INSULIN SLIDING SCALE (NOVOLOG) 1 VIAL SQ SCH ×4 (06:53→21:33)
--- NOTE | 2020-04-07 08:59 | PN ---
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, Physician - Current Medication List Current Medications: Active Medications Aspirin (Asa -) 81 mg PO DAILY [facility] Last Admin: 04/06/20 09:02 Dose: 81 mg Documented by: Atorvastatin Calcium (Lipitor -) 80 mg PO HS [facility] Last Admin: 04/06/20 21:38 Dose: 80 mg Documented by: Clopidogrel Bisulfate (Plavix -) 75 mg PO DAILY [facility] Last Admin: 04/06/20 09:02 Dose: 75 mg Documented by: Insulin Aspart (Novolog Vial Sliding Scale -) 1 vial SQ ACHS [facility]; Protocol Last Admin: 04/07/20 06:53 Dose: 2 units Documented by: Metoprolol Tartrate (Lopressor -) 12.5 mg PO BID [facility] Last Admin: 04/06/20 21:38 Dose: 12.5 mg Documented by: - Objective Vital Signs: Vital Signs Temperature 98.1 F 04/07/20 06:00 Pulse Rate 91 H 04/07/20 06:00 Respiratory Rate 18 04/07/20 06:00 Blood Pressure 160/82 04/07/20 06:00 O2 Sat by Pulse Oximetry (%) 97 04/07/20 06:00 Cardiovascular: Yes: S1, S2 Respiratory: Yes: Regular, CTA Bilaterally Gastrointestinal: Yes: Normal Bowel Sounds, Soft Labs: CBC, BMP 04/05/20 11:09 04/05/20 12:16 INR, PTT INR 1.04 (0.83-1.09) 04/05/20 11:09 Problem List - Problems (1) Cerebrovascular accident (CVA) Assessment/Plan: Neuro consult appreciated on asa/plavix/statin resume b-blockers cardio consult MRI PENDING W/U PER CARDIO Code(s): I63.9 - CEREBRAL INFARCTION, UNSPECIFIED (2) Diabetes Assessment/Plan: [facility] Code(s): E11.9 - TYPE 2 DIABETES MELLITUS WITHOUT COMPLICATIONS (3) HLD (hyperlipidemia) Assessment/Plan: on lipitor 80 Abnormal Lab Results 04/05/20 04/05/20 04/05/20 11:09 11:09 12:16 MCV 99.7 H MCH 34.4 H Sodium 135 L Potassium 7.8 H* 5 Anion Gap 3 L 5 L Random Glucose 276 H 265 H AST 101 H Cholesterol 236 H Total LDL Cholesterol 159 H HDL Cholesterol 71 H Code(s): E78.5 - HYPERLIPIDEMIA, UNSPECIFIED
[2020-04-07] MEDS: METOPROLOL TARTRATE 25 MG TABLET (FP) PO SCH ×2 (09:51→21:33)
[2020-04-07] MEDS: ASPIRIN 81 MG CHEWABLE TABLETS PO SCH (09:51)
[2020-04-07] MEDS: CLOPIDOGREL BISULFATE 75 MG TABLET (FP) PO SCH (09:52)
--- NOTE | 2020-04-07 10:21 | PN ---
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, ONCOLOGY RN - Note 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: Appreciate PT assessment and Physiatry consult with potential for functional i mprovement with in pt rehabilitation. Selected Entries 04/06/20 04/07/20 04/07/20 23:00 02:00 06:00 Breakfast Diet Tolerated Supper 25% Temperature 98.4 F 98.1 F Pulse Rate 96 H 91 H Blood Pressure 157/96 160/82 O2 Sat by Pulse 97 Oximetry (%) 04/07/20 09:36 Breakfast 50% Diet Tolerated Fair Supper Temperature Pulse Rate Blood Pressure O2 Sat by Pulse Oximetry (%) Laboratory Tests 04/05/20 11:09 WBC 9.1 Laboratory Tests 04/05/20 14:49 COVID-19 ([facility]) Not detected Reg diet/thin liquid ordered. MRI pending
--- NOTE | 2020-04-07 11:36 | PN ---
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, Physician History of Present Illness: Seen and examined at the bedside reports continued left side weakness and numbness no sob, cp, fever, chills no N/V/D making urine - Current Medication List Current Medications: Active Medications Aspirin (Asa -) 81 mg PO DAILY [facility] Last Admin: 04/07/20 09:51 Dose: 81 mg Documented by: Atorvastatin Calcium (Lipitor -) 80 mg PO HS [facility] Last Admin: 04/06/20 21:38 Dose: 80 mg Documented by: Clopidogrel Bisulfate (Plavix -) 75 mg PO DAILY [facility] Last Admin: 04/07/20 09:52 Dose: 75 mg Documented by: Insulin Aspart (Novolog Vial Sliding Scale -) 1 vial SQ ACHS [facility]; Protocol Last Admin: 04/07/20 06:53 Dose: 2 units Documented by: Metoprolol Tartrate (Lopressor -) 12.5 mg PO BID [facility] Last Admin: 04/07/20 09:51 Dose: 12.5 mg Documented by: - Objective Vital Signs: Vital Signs Temperature 98.1 F 04/07/20 06:00 Pulse Rate 91 H 04/07/20 06:00 Respiratory Rate 18 04/07/20 06:00 Blood Pressure 160/82 04/07/20 06:00 O2 Sat by Pulse Oximetry (%) 97 04/07/20 06:00 Constitutional: Yes: No Distress Neck: Yes: Supple Cardiovascular: Yes: Regular Rate and Rhythm Respiratory: Yes: Regular Gastrointestinal: Yes: Soft Edema: No Neurological: Yes: Paresthesia, Weakness Labs: CBC, BMP 04/05/20 11:09 04/05/20 12:16 INR, PTT INR 1.04 (0.83-1.09) 04/05/20 11:09 Assessment/Plan 64 year old male with history of IDDM, CVA, and hypertension who presented from home with left side weakness and admitted for r/o CVA and noted to have hyperkalemia. 1. Pseudohyperkalemia in setting of hemolysis 2. Left side weakness r/o CVA 3. IDDM 4. Hypertension Check repeat BMP and plasma potassium this morning If K is > 5.5 would change diet to low potassium diet Continue work up as per neurology, awaiting MRI/MRA BP control as per neurology recommendations. Thank you Gurinder Murcia DO
[2020-04-07 12:36] LABS: POTASSIUM 3.8 mmol/L (3.5-5.1)
[2020-04-07 12:45] LABS: BLOOD UREA NITROGEN 11.9 mg/dL (7-18); CALCIUM 8.9 mg/dL (8.5-10.1); CREATININE 0.7 mg/dL (0.55-1.3)
[2020-04-07] MEDS: ATORVASTATIN CA 80 MG TABLET (FP) PO SCH (21:33)
[2020-04-08] MEDS: INSULIN SLIDING SCALE (NOVOLOG) 1 VIAL SQ SCH ×4 (06:17→23:09)
[2020-04-08 06:53] LABS: BLOOD UREA NITROGEN 12.8 mg/dL (7-18); CALCIUM 8.9 mg/dL (8.5-10.1); CREATININE 0.7 mg/dL (0.55-1.3); POTASSIUM 3.8 mmol/L (3.5-5.1)
--- NOTE | 2020-04-08 08:09 | PN ---
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, Physician - Current Medication List Current Medications: Active Medications Aspirin (Asa -) 81 mg PO DAILY [facility] Last Admin: 04/07/20 09:51 Dose: 81 mg Documented by: Atorvastatin Calcium (Lipitor -) 80 mg PO HS [facility] Last Admin: 04/07/20 21:33 Dose: 80 mg Documented by: Clopidogrel Bisulfate (Plavix -) 75 mg PO DAILY [facility] Last Admin: 04/07/20 09:52 Dose: 75 mg Documented by: Insulin Aspart (Novolog Vial Sliding Scale -) 1 vial SQ ACHS [facility]; Protocol Last Admin: 04/08/20 06:17 Dose: 2 units Documented by: Metoprolol Tartrate (Lopressor -) 12.5 mg PO BID [facility] Last Admin: 04/07/20 21:33 Dose: 12.5 mg Documented by: - Objective Vital Signs: Vital Signs Temperature 98.6 F 04/08/20 06:00 Pulse Rate 97 H 04/08/20 06:00 Respiratory Rate 18 04/08/20 06:00 Blood Pressure 113/83 04/08/20 06:00 O2 Sat by Pulse Oximetry (%) 95 04/07/20 21:00 Cardiovascular: Yes: S1, S2 Respiratory: Yes: Regular, CTA Bilaterally Gastrointestinal: Yes: Normal Bowel Sounds, Soft Neurological: Yes: Alert, Oriented, Dysarthria, Weakness (left side) Labs: CBC, BMP 04/05/20 11:09 04/08/20 05:20 INR, PTT INR 1.04 (0.83-1.09) 04/05/20 11:09 Problem List - Problems (1) Cerebrovascular accident (CVA) Assessment/Plan: Neuro consult appreciated on asa/plavix/statin resume b-blockers cardio consult MRI PENDING W/U PER CARDIO--event recorder as outpatient Code(s): I63.9 - CEREBRAL INFARCTION, UNSPECIFIED (2) Diabetes Assessment/Plan: [facility] Code(s): E11.9 - TYPE 2 DIABETES MELLITUS WITHOUT COMPLICATIONS (3) HLD (hyperlipidemia) Assessment/Plan: on lipitor 80 Code(s): E78.5 - HYPERLIPIDEMIA, UNSPECIFIED
[2020-04-08] MEDS: ASPIRIN 81 MG CHEWABLE TABLETS PO SCH (09:03)
[2020-04-08] MEDS: CLOPIDOGREL BISULFATE 75 MG TABLET (FP) PO SCH (09:03)
[2020-04-08] MEDS: METOPROLOL TARTRATE 25 MG TABLET (FP) PO SCH ×2 (09:03→23:03)
[2020-04-08] MEDS: HEPARIN NA (PORCINE) 5,000 UNITS/ML 1ML VIAL SQ SCH ×2 (09:19→23:03)
--- NOTE | 2020-04-08 10:52 | PN ---
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: Selected Entries 04/07/20 04/07/20 04/07/20 09:36 13:27 23:00 Breakfast 50% Diet Tolerated Fair Fair Fair Lunch 75% Temperature Pulse Rate Blood Pressure O2 Sat by Pulse Oximetry (%) Oxygen Delivery Method 04/08/20 04/08/20 04/08/20 01:16 06:00 09:00 Breakfast Diet Tolerated Lunch Temperature 98.3 F 98.6 F Pulse Rate 86 97 H Blood Pressure 145/85 113/83 O2 Sat by Pulse 94 L Oximetry (%) Oxygen Delivery Room Air Method 04/08/20 04/08/20 09:06 09:13 Breakfast 25% Diet Tolerated Fair Lunch Temperature 98.5 F Pulse Rate 95 H Blood Pressure 154/82 O2 Sat by Pulse 94 L Oximetry (%) Oxygen Delivery Method Laboratory Tests 04/05/20 11:09 WBC 9.1 MRI- Large ACUTE non hem infart R DYLAN and R temp lobe
--- NOTE | 2020-04-08 12:31 | PN ---
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 He presented to the ED with left sided weakness, found by his sister who found him in the bathroom unable to move his left side. At baseline he slurs his speech but the slurring became more pronounced. CAT scan of the head revealed no evidence of acute stroke. Past Studies: MRI 12/28/2019 Moderate atrophy, microvascular ischemia, multiple foci of acute/subacute infarcts in the right frontal lobe. Carotid Doppler 12/28/2019 showed moderate intimal thickening in the distal common carotid artery up to the bifurcation. Tiny plaques at the common carotid bifurcation without evidence of hemodynamically significant stenosis bi laterally. Echocardiogram 12/30/2019: Normal LV function EF 65% Trace MR Trace TR - Current Medication List Current Medications: Active Medications Aspirin (Asa -) 81 mg PO DAILY [facility] Last Admin: 04/08/20 09:03 Dose: 81 mg Documented by: Atorvastatin Calcium (Lipitor -) 80 mg PO HS [facility] Last Admin: 04/07/20 21:33 Dose: 80 mg Documented by: Clopidogrel Bisulfate (Plavix -) 75 mg PO DAILY [facility] Last Admin: 04/08/20 09:03 Dose: 75 mg Documented by: Heparin Sodium (Porcine) (Heparin -) 5,000 unit SQ BID [facility] Last Admin: 04/08/20 09:19 Dose: 5,000 unit Documented by: Insulin Aspart (Novolog Vial Sliding Scale -) 1 vial SQ [facility]; Protocol Last Admin: 04/08/20 11:31 Dose: 4 units Documented by: Metoprolol Tartrate (Lopressor -) 12.5 mg PO BID [facility] Last Admin: 04/08/20 09:03 Dose: 12.5 mg Documented by: - Objective Vital Signs: Vital Signs Temperature 98.5 F 04/08/20 09:06 Pulse Rate 95 H 04/08/20 09:06 Respiratory Rate 18 04/08/20 09:06 Blood Pressure 154/82 04/08/20 09:06 O2 Sat by Pulse Oximetry (%) 94 L 04/08/20 09:06 Constitutional: Yes: Well Nourished Eyes: Yes: WNL HENT: Yes: WNL Neck: Yes: WNL Cardiovascular: Yes: Regular Rate and Rhythm, S1, S2 Respiratory: Yes: CTA Bilaterally Gastrointestinal: Yes: Soft Edema: No Neurological: Yes: Alert, Oriented Labs: CBC, BMP 04/05/20 11:09 04/08/20 05:20 INR, PTT INR 1.04 (0.83-1.09) 04/05/20 11:09 Assessment/Plan 64 year old male with a PMH of HTN, DM, smoking, past CVA (December 2019 with residual weakness), and vertigo. He presented to the ED with left sided weakness, found by his sister who found him in the bathroom unable to move his left side. At baseline he slurs his speech but the slurring became more pronounced. CAT scan of the head revealed no evidence of acute stroke. Past Studies: MRI 12/28/2019 Moderate atrophy, microvascular ischemia, multiple foci of acute/subacute infarcts in the right frontal lobe. Carotid Doppler 12/28/2019 showed moderate intimal thickening in the distal common carotid artery up to the bifurcation. Tiny plaques at the common carotid bifurcation without evidence of hemodynamically significant stenosis bilaterally. Echocardiogram 12/30/2019: Normal LV function EF 65% Trace MR Trace TR EKG NSR with occasional VPC's, normal intervals, normal axis, and NSSTW changes Troponin negative x2 Recommendations: -Continue DAPT (Plavix 75 mg daily/ASA 81 mg daily) -LDL 159, on Atorvastatin 80 mg daily. Would add Ezetimide 10 mg daily and try to drive LDL to below 70. -Continue Metoprolol Tartrate 12.5 mg PO BID -Please schedule outpatient ILR placement with Dr. Edmar Hinson.
--- NOTE | 2020-04-08 19:31 | PN ---
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, Physician History of Present Illness: evenst noted Chart rveiwed Seen on tele feels slight;ly better MRI noted - Current Medication List Current Medications: Active Medications Aspirin (Asa -) 81 mg PO DAILY [facility] Last Admin: 04/08/20 09:03 Dose: 81 mg Documented by: Atorvastatin Calcium (Lipitor -) 80 mg PO HS [facility] Last Admin: 04/07/20 21:33 Dose: 80 mg Documented by: Clopidogrel Bisulfate (Plavix -) 75 mg PO DAILY [facility] Last Admin: 04/08/20 09:03 Dose: 75 mg Documented by: Heparin Sodium (Porcine) (Heparin -) 5,000 unit SQ BID [facility] Last Admin: 04/08/20 09:19 Dose: 5,000 unit Documented by: Insulin Aspart (Novolog Vial Sliding Scale -) 1 vial SQ ACHS [facility]; Protocol Last Admin: 04/08/20 17:31 Dose: 4 units Documented by: Metoprolol Tartrate (Lopressor -) 12.5 mg PO BID [facility] Last Admin: 04/08/20 09:03 Dose: 12.5 mg Documented by: - Objective Vital Signs: Vital Signs Temperature 98.6 F 04/08/20 18:00 Pulse Rate 108 H 04/08/20 18:00 Respiratory Rate 18 04/08/20 18:00 Blood Pressure 151/82 04/08/20 18:00 O2 Sat by Pulse Oximetry (%) 92 L 04/08/20 18:00 Constitutional: Yes: Well Nourished Eyes: Yes: WNL HENT: Yes: WNL Neck: Yes: WNL Neurological: Yes: Alert, Oriented, Babinski positive, Cran Nerves II-XII Intact Labs: CBC, BMP 04/05/20 11:09 04/08/20 05:20 INR, PTT INR 1.04 (0.83-1.09) 04/05/20 11:09 Problem List - Problems (1) Cerebrovascular accident (CVA) Code(s): I63.9 - CEREBRAL INFARCTION, UNSPECIFIED (2) Diabetes Code(s): E11.9 - TYPE 2 DIABETES MELLITUS WITHOUT COMPLICATIONS (3) Hyperglycemia Code(s): R73.9 - HYPERGLYCEMIA, UNSPECIFIED (4) Type 2 diabetes mellitus with diabetic neuropathic arthropathy Code(s): E11.610 - TYPE 2 DIABETES MELLITUS W DIABETIC NEUROPATHIC ARTHROPATHY Qualifiers: (5) Vertigo Code(s): R42 - DIZZINESS AND GIDDINESS Assessment/Plan PT Blood work for hypercoagulbility AntiCardiolipin Ab Antithrombin III Proetin C protein S Add Plaviux Need JENNYFER
[2020-04-08] MEDS: ATORVASTATIN CA 80 MG TABLET (FP) PO SCH (23:03)
[2020-04-09] MEDS: INSULIN SLIDING SCALE (NOVOLOG) 1 VIAL SQ SCH ×4 (07:31→21:27)
--- NOTE | 2020-04-09 09:22 | DS ---
Physical Examination Vital Signs: Vital Signs Temperature 98.3 F 04/09/20 06:00 Pulse Rate 96 H 04/09/20 06:00 Respiratory Rate 18 04/09/20 06:00 Blood Pressure 150/74 04/09/20 06:00 O2 Sat by Pulse Oximetry (%) 98 04/09/20 06:00 Cardiovascular: Yes: Regular Rate and Rhythm Respiratory: Yes: Regular, CTA Bilaterally Gastrointestinal: Yes: Normal Bowel Sounds, Soft Edema: No Neurological: Yes: Alert, Oriented, Weakness (LEFT SIDE) Labs: CBC, BMP 04/05/20 11:09 04/08/20 05:20 Discharge Summary Problems reviewed: Yes Reason For Visit: UNILATERAL WEAKNESS; HYPERLIPIDEMIA Current Active Problems HTN (hypertension) (Acute) PVC's (premature ventricular contractions) (Acute) Transient ischemic attack (Acute) Hospital Course: - Problems (1) Cerebrovascular accident (CVA) Assessment/Plan: Neuro consult appreciated on asa/plavix/statin resume b-blockers cardio consult MRI ACUTE CVA D/W CARDIO REAGRDING JENNYFER AT THIS TIME NO INDICATION FOR THIS AND NO OTHER SIGNS OF THROMBUS AND PLAN LOOP RECORDER OUTPATIENT TO R/O PAF PT Code(s): I63.9 - CEREBRAL INFARCTION, UNSPECIFIED (2) Diabetes Assessment/Plan: bgm ss [facility] Code(s): E11.9 - TYPE 2 DIABETES MELLITUS WITHOUT COMPLICATIONS (3) HLD (hyperlipidemia) Assessment/Plan: on lipitor 80 Code(s): E78.5 - HYPERLIPIDEMIA, UNSPECIFIED - Instructions Referrals: Kevin Elizabeth MD [Primary Care Provider] - - Home Medications Comprehensive Discharge Medication List: Ambulatory Orders Aspirin [ASA -] 81 mg PO DAILY #30 tab.chew 12/31/19 Atorvastatin Ca [Lipitor] 80 mg PO HS #30 tablet 12/31/19 Insulin (Levemir) [Levemir Vial] 10 units SQ AM #3 cartridge 12/31/19 Insulin Sliding Scale [Novolog Vial Sliding Scale -] 1 vial SQ ACHS units 12/31/19 Metoprolol Tartrate [Lopressor -] 12.5 mg PO BID #30 tablet 12/31/19 Ramipril [Altace] 2.5 mg PO DAILY #30 capsule 12/31/19 Clopidogrel Bisulfate [Plavix -] 75 mg PO DAILY tablet 04/09/20 Heparin - 5,000 unit SQ BID vial 10/16/20 Insulin Sliding Scale [Novolog Vial Sliding Scale -] 1 vial SQ ACHS units 04/09/20
[2020-04-09] MEDS: HEPARIN NA (PORCINE) 5,000 UNITS/ML 1ML VIAL SQ SCH ×2 (09:46→21:26)
[2020-04-09] MEDS: CLOPIDOGREL BISULFATE 75 MG TABLET (FP) PO SCH (09:47)
[2020-04-09] MEDS: ASPIRIN 81 MG CHEWABLE TABLETS PO SCH (09:47)
[2020-04-09] MEDS: METOPROLOL TARTRATE 25 MG TABLET (FP) PO SCH ×2 (09:48→21:25)
[2020-04-09] MEDS ORDERED: CLOPIDOGREL BISULFATE 75 MG TABLET (FP) PO SCH (10:00)
--- NOTE | 2020-04-09 13:43 | EKG ---
Test Reason : Blood Pressure : / mmHG Vent. Rate : 086 BPM Atrial Rate : 086 BPM P-R Int : 134 ms QRS Dur : 082 ms QT Int : 392 ms P-R-T Axes : 057 016 065 degrees QTc Int : 469 ms NORMAL SINUS RHYTHM NORMAL ECG WHEN COMPARED WITH ECG OF 05-APR-2020 11:28, PREMATURE VENTRICULAR COMPLEXES ARE NO LONGER PRESENT Confirmed by BRENT JHAVERI MD ([id number]) on 04/09/2020 1:43:16 PM Referred By: Confirmed By:BRENT JHAVERI MD
[2020-04-09] MEDS: ATORVASTATIN CA 80 MG TABLET (FP) PO SCH (21:26)
[2020-04-09] MEDS ORDERED: INSULIN (LEVEMIR) 100 UNITS/ML UNITS SQ SCH (22:00)
[2020-04-10] MEDS: INSULIN SLIDING SCALE (NOVOLOG) 1 VIAL SQ SCH ×2 (06:19→11:44)
[2020-04-10] MEDS: METOPROLOL TARTRATE 25 MG TABLET (FP) PO SCH (09:00)
[2020-04-10] MEDS: ASPIRIN 81 MG CHEWABLE TABLETS PO SCH (09:00)
[2020-04-10] MEDS: HEPARIN NA (PORCINE) 5,000 UNITS/ML 1ML VIAL SQ SCH (09:00)
[2020-04-10] MEDS: CLOPIDOGREL BISULFATE 75 MG TABLET (FP) PO SCH (09:00)
--- NOTE | 2020-04-10 11:24 | PN ---
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, Physician Chief Complaint: CVA History of Present Illness: Previous notes and events reviewed awake and alert NAD no acute events overnight denies chest pain or SOB patient is being discharged back to SNF today - Current Medication List Current Medications: Active Medications Aspirin (Asa -) 81 mg PO DAILY [facility] Last Admin: 04/10/20 09:00 Dose: 81 mg Documented by: Atorvastatin Calcium (Lipitor -) 80 mg PO HS [facility] Last Admin: 04/09/20 21:26 Dose: 80 mg Documented by: Clopidogrel Bisulfate (Plavix -) 75 mg PO DAILY [facility] Last Admin: 04/10/20 09:00 Dose: 75 mg Documented by: Heparin Sodium (Porcine) (Heparin -) 5,000 unit SQ BID [facility] Last Admin: 04/10/20 09:00 Dose: 5,000 unit Documented by: Insulin Aspart (Novolog Vial Sliding Scale -) 1 vial SQ [facility]; Protocol Last Admin: 04/10/20 06:19 Dose: 2 units Documented by: Insulin Detemir (Levemir Vial) 10 units SQ [facility] Last Admin: 04/09/20 21:28 Dose: 10 unit Documented by: Metoprolol Tartrate (Lopressor -) 12.5 mg PO BID [facility] Last Admin: 04/10/20 09:00 Dose: 12.5 mg Documented by: - Objective Vital Signs: Vital Signs Temperature 98.5 F 04/10/20 09:30 Pulse Rate 101 H 04/10/20 09:30 Respiratory Rate 18 04/10/20 09:30 Blood Pressure 149/82 04/10/20 09:30 O2 Sat by Pulse Oximetry (%) 95 04/10/20 09:30 Constitutional: Yes: No Distress, Calm Eyes: Yes: Conjunctiva Clear HENT: Yes: Atraumatic Cardiovascular: Yes: Regular Rate and Rhythm Respiratory: Yes: Regular, Diminished Gastrointestinal: Yes: Normal Bowel Sounds, Soft Genitourinary: Yes: Incontinence Musculoskeletal: Yes: Muscle Weakness Extremities: Yes: WNL Neurological: Yes: Alert, Pre-Existing Deficit, Weakness (left side) Psychiatric: Yes: Alert Labs: CBC, BMP 04/05/20 11:09 04/08/20 05:20 INR, PTT INR 1.04 (0.83-1.09) 04/05/20 11:09 Problem List - Problems (1) HTN (hypertension) Code(s): I10 - ESSENTIAL (PRIMARY) HYPERTENSION (2) Cerebrovascular accident (CVA) Code(s): I63.9 - CEREBRAL INFARCTION, UNSPECIFIED (3) Diabetes Code(s): E11.9 - TYPE 2 DIABETES MELLITUS WITHOUT COMPLICATIONS (4) HLD (hyperlipidemia) Code(s): E78.5 - HYPERLIPIDEMIA, UNSPECIFIED Assessment/Plan patient is being discharged to SNF today
[2020-04-10 14:28] VITALS: BP 149/75; PULSE 88; TEMP 98.3
== END 2020-04-10 16:45 | disposition home or self-care (01) | DRG 45 ==
LOC: JER 10:57 → JERBED 14:01 → J4S 17:50
PROVIDERS: ADMIT Family Medicine; ATTEND Family Medicine
DX: I63.9 Cerebral infarction, unspecified (principal); I10 Essential (primary) hypertension; E78.5 Hyperlipidemia, unspecified; R47.81 Slurred speech; E11.65 Type 2 diabetes mellitus with hyperglycemia; I49.3 Ventricular premature depolarization; I69.354 Hemiplegia and hemiparesis following cerebral infarction affecting left non-dominant side; E11.610 Type 2 diabetes mellitus with diabetic neuropathic arthropathy; F17.210 Nicotine dependence, cigarettes, uncomplicated; R29.711 NIHSS score 11; E87.5 Hyperkalemia; R42 Dizziness and giddiness; E66.3 Overweight; Z68.25 Body mass index [BMI] 25.0-25.9, adult; R29.810 Facial weakness; R26.9 Unspecified abnormalities of gait and mobility; Z79.4 Long term (current) use of insulin
CPT/HCPCS: 36415; 70450-TC; 70496-TC; 70551-TC; 80048; 80053; 80061; 82550; 82553; 82962; 83721; 84132; 84484; 85025; 85610; 85730; 86850; 86900; 86901; 93005; 93010; 97161-GP; 99285-25; C9803; J0131; J1644; Q9967; U0003